=== PATIENT | female | born 1965 ===

== ENCOUNTER 2016-06-04 10:05 | Day surgery (SDC) | payer MEDICARE, MEDICAID ==
[2016-05-30 10:24] VITALS: BMI 32.5
[2016-06-04] MEDS ORDERED: Absorbable Gelatin Sponge Size 100 ONE (10:30)
[2016-06-04] MEDS ORDERED: Lidocaine 1%/Epinephrine 1:100000 30 ml vial ONE (10:30)
[2016-06-04] MEDS ORDERED: Remifentanil 2 MG PDS IV ONE (11:20)
[2016-06-04] MEDS ORDERED: Propofol 10 mg/ml Inj (20 ML) ONE ×2 (11:22→13:29)
[2016-06-04] MEDS ORDERED: Midazolam 2 MG/2 ML VIAL ONE (11:35)
[2016-06-04] MEDS ORDERED: Succinylcholine 200 mg/10 ml Inj IV ONE (11:35)
[2016-06-04] MEDS ORDERED: Rocuronium 10 mg/ml (5 ml) ONE (11:35)
[2016-06-04] MEDS ORDERED: Liquid Adhesive TOP ONE (13:52)
[2016-06-04] MEDS ORDERED: Bacitracin Ointment 30 GM TUBE ONE (13:53)
[2016-06-04] MEDS ORDERED: Morphine 2 mg/ml ISec IVP PRN ×2 (14:08→14:14)
[2016-06-04] MEDS ORDERED: HYDROmorphone 0.5 mg/0.5 ml ISec IVP PRN (14:08)
[2016-06-04] MEDS ORDERED: HYDROmorphone 0.5 mg/0.5 ml ISec ONE ×4 (14:13→14:39)
[2016-06-04] MEDS ORDERED: HYDROmorphone 2 mg/ml ISec IVP PRN (14:28)
[2016-06-04] MEDS ORDERED: Dextrose 5%/0.45% NS 1,000 ML IV SCH (14:30)
[2016-06-04] MEDS ORDERED: HYDROmorphone 2 mg/ml ISec ONE (15:41)
[2016-06-04] MEDS: Methocarbamol 500 MG Tab PO SCH (18:29)
--- NOTE | 2016-06-04 20:32 | OP ---
PROCEDURE DATE: 06/04/2016 PREOPERATIVE DIAGNOSES: Herniated cervical disks, myeloradiculopathy. POSTOPERATIVE DIAGNOSES: Herniated cervical disks, myeloradiculopathy. PROCEDURE: Anterior cervical diskectomy, fixation of C3-C4 C4-5. SURGEON: Geoff Macdonald MD COSURGEON: Niraj Hare MD ANESTHESIA: General endotracheal. ESTIMATED BLOOD LOSS: Less than 100 mL. COMPLICATIONS: None. JUSTIFICATION: The patient has been experiencing neck pain with radiating pain and dysesthesias down her arms as well as balance and coordination problems. Workup with MRI documented significant disk herniations with fairly severe cord compression at C3-C4 and C4-C5. There was also bilateral severe foraminal stenosis. The patient was offered the possibility of treatment via anterior diskectomy, de compression, fixation and fusion. The nature of this procedure, the rationale behind it, alternative s, potential risks, complications, realistic chance of success, recovery time discussed with her at [facility]. All her questions were answered. She fully understood all the above and elected to proceed a s offered. PROCEDURE: The patient was taken to the operating room. She was hooked up to [facility], intubated and anesthetized. She was carefully placed on the OR table in supine position. A small roll placed between her scapula. Head placed on a donut in neutral position. Shoulders gentl y taped down. Incision lateralize with lateral fluoroscopy directly overlying the C4 vertebral body and natural skin fold. After scrubbing the anterior throat with acetone and prepping and draping in the usual sterile manner, the incision was made approximately 4-5 cm in length in the wrist crease ju st to left of midline. The platysma was exposed, opened in the direction of its fibers. Sharp and b shamir dissection then carried forth in the plane between the sternocleidomastoid bilaterally, the trac hea and the esophagus medially to expose the anterior spine. This was cleared with Kitner elevators. [place] were placed in the exposed disk spaces, which confirmed fluoroscopically to be the correct level. At this point, the longus colli muscles were stripped laterally bilaterally. The self-retaining Casp ar type retracting system was then placed. The anesthesiologist was asked to deflate the ET cuff to prevent pressure on the recurrent laryngeal nerve and the pharynx. Each disk was then incised and gr ossly emptied of disk material with the use of pituitary rongeurs and various sized and shaped curett es. This was done with the assistance of an intravertebral retractor. At this point, the microscope was brought in. First, at the C3-C4 level with a retractor on one side, again under microscopic vision, we were able to tease a 1 mm Kerrison behind the posterior longitudinal ligament and then remove all soft tissue o ff the anterior dura which included the ligament, residual annulus and disk material as well as some of the end-plate above and below, completely decompressing the anterior dura side to side. Foraminot omies were performed laterally bilaterally with a 2 mm Kerrison. A blunt nerve hook was used to insp ect each foramen to ensure complete decompression. Hemostasis was then achieved with thrombinated Ge lfoam. The depth of the disk space was measured. Procedure was carried down to the 4-5 level, again with intravertebral retractor in place. Again, we teased a 1 mm Kerrison behind the posterior longitudinal ligament. Again, using a 1 and 2 mm Kerris on, removed all tissue off the anterior dura side to side, the end-plate above and below, foraminotom ies were performed laterally bilaterally. A blunt nerve hook used to document complete decompression of the exiting nerve roots. Hemostasis was achieved with thrombinated powdered Gelfoam. Of note, a t this level, for several seconds, while working predominantly on the left side, there was some incre ased EMG activity; however, somatosensory evoked potentials remained stable, motor evoked potentials were checked and also remained stable and this quieted down after a couple of minutes. At this point, the microscope was withdrawn, the retractors were withdrawn. We turned our attention to the fusion. A small hole was made in the anterior cortex of the C4 vertebrae. An 18-gauge needle was used to aspirate approximately 3 or 4 mL of marrow. This was then impregnated on some collagen hydroxyapatite sponges for the fusion. We then trialed several sizes for interbody fusion cages and chose a 5 mm cage at the cephalad level and a 4 mm cage at the lower level. A rasp instrument was us ed to decorticate above and below. We also used a high speed drill to thin down some of the osteophy tic ridging anteriorly. We then placed the appropriate sized carbon fiber fusion cage filled with ma rrow impregnated sponges. Again, a 5 mm at C3-C4 and a 4 mm at C4-C5. Visual inspection and lateral x-ray confirmed excellent position of both these implants. We then placed the appropriate sized Uniplate overlying the spine. 14 mm screws were placed sequentia lly through the plate into C4, C3 and C5. Final x-ray confirmed superb positioning of the entire con struct, the overlying plate, the 3 intravertebral screws and the 2 interbody grafts. The locking mec hanisms then tightened. Retractors withdrawn. Wound copiously irrigated with antibiotic solution. Some small bleeding point s primarily along the longus colli muscles were coagulated with bipolar cautery. The wound was obser elvin for several minutes to ensure that hemostasis was complete, which it was. We further aligned the prevertebral space with thrombinated powdered Gelfoam for further hemostatic activity. At this point, the platysma was reapproximated using Vicryl, the subQ closed using interrupted invert ed 3-0 Vicryl stitch, the skin closed with running 4-0 Monocryl stitch, benzoin and Steri-Strips, a d ressing and a soft collar were applied. The patient was aroused from anesthesia without difficulty and extubated, moving all 4 extremities wi th excellent strength on her way to the recovery room. All counts were correct. Again, somatosensor y and motor evoked potentials remained stable over the course of this procedure. No complications. Geoff Macdonald MD cc: [id number] TT: 06/04/2016 20:31:36 jono
[2016-06-05] MEDS ORDERED: HYDROmorphone 2 mg/ml ISec IVP PRN (08:31)
[2016-06-05 09:02] LABS: ADD MANUAL DIFF? NO
[2016-06-05 09:08] LABS: EOS % 0.1 % (1.5-5.0); GRAN # 14.43 (1.4-6.5); GRAN % 92.5 % (50.0-68.0); HEMATOCRIT 40.1 % (36.0-48.0); LYMPH # 0.6 (1.2-3.4); LYMPH % 3.5 % (22.0-35.0); MEAN CORPUSCULAR HEMOGLOBIN 27.5 pg (25.0-35.0); MEAN CORPUSCULAR HGB CONC 33.2 g/dl (31.0-37.0); MEAN PLATELET VOLUME 9.2 fl (7.0-11.0); MONO # 0.6 (0.1-0.6); MONO % 3.9 % (1.0-6.0); PLATELET COUNT 294 10^3/uL (120.0-450.0); RED CELL DISTRIBUTION WIDTH 16.8 % (11.5-14.5); WHITE BLOOD COUNT 15.6 10^3/ul (4.5-11.0)
[2016-06-05 09:16] LABS: ALB/GLOB RATIO 1.3 (1.1-1.8); ALKALINE PHOSPHATASE 74 U/L (38-133); ALT/SGPT 31 U/L (7-56); AST/SGOT 37 U/L (15-39); BILIRUBIN,TOTAL 0.5 mg/dL (0.2-1.3); BLOOD UREA NITROGEN 10 mg/dL (7-21); CALCIUM 8.7 mg/dL (8.4-10.5); CARBON DIOXIDE 31 mmol/L (21-33); CHLORIDE 95 mmol/L (95-110); GFR AFRICAN-AMERICAN > 60; GLUCOSE,RANDOM 99 mg/dL (70-110); POTASSIUM 3.5 mmol/L (3.6-5.0); SODIUM 136 mmol/L (132-148)
[2016-06-05] MEDS ORDERED: Potassium Chloride 20 mEq ER Tab PO ONE (09:57)
[2016-06-05] MEDS ORDERED: Levothyroxine 112 MCG TAB PO SCH (10:00)
[2016-06-05] MEDS ORDERED: Naloxone 0.4 mg/ml Inj (Adult) IVP ONE (10:13)
[2016-06-05] MEDS ORDERED: HYDROmorphone 0.5 mg/0.5 ml ISec IVP PRN (10:14)
--- NOTE | 2016-06-05 10:43 | CP.PCM.PN ---
Subjective - Date & Time of Evaluation Date of Evaluation: 06/05/16 Time of Evaluation: 10:10 - Subjective Subjective: I was called by the RN to evaluate patient for lethargy after receiving Dilaudid 2mg IV push @ 8:42am. Patient seen and examined lying on bed @ 578-2, lethargy but easily arousable and response for question with slurred speech. Denies cp, sob, palpitation, dizziness. Vs 113/68 HR 101 Resp 14 SPO2 68% @ RA and 91% with 2LNC/O2. Objective - Vital Signs/Intake and Output Vital Signs (last 24 hours): Temp Pulse Resp BP Pulse Ox 98.0 F 97 H 20 124/78 95 06/05/16 09:18 06/05/16 09:18 06/05/16 09:18 06/05/16 09:18 06/05/16 09:18 Intake and Output: 06/05/16 06/05/16 06:59 18:59 Intake Total 660 Balance 660 - Medications Medications: Current Medications Docusate Sodium (Colace) 100 mg PO BID [facility] Hydrochlorothiazide (Microzide) 25 mg PO DAILY [facility] Hydromorphone HCl (Dilaudid) 0.5 mg IVP Q4H PRN PRN Reason: Pain, moderate (4-7) Dextrose/Sodium Chloride (Dextrose 5%/0.45% Ns 1000 Ml) 1,000 mls @ 90 mls/hr IV .Q11H7M [facility] Last Admin: 06/04/16 16:44 Dose: 90 mls/hr Levothyroxine Sodium (Synthroid) 224 mcg PO QAM [facility] Methocarbamol (Robaxin) 500 mg PO BID [facility] Last Admin: 06/04/16 18:29 Dose: 500 mg Nortriptyline HCl (Pamelor) 25 mg PO [facility] Last Admin: 06/04/16 21:07 Dose: 25 mg Ondansetron HCl (Zofran Inj) 4 mg IVP Q8H PRN PRN Reason: Nausea/Vomiting Last Admin: 06/05/16 08:42 Dose: 4 mg Tramadol HCl (Ultram) 100 mg PO Q6 PRN PRN Reason: Pain, severe (8-10) Trazodone HCl (Desyrel) 50 mg PO [facility] Last Admin: 06/04/16 21:07 Dose: 50 mg - Labs Labs: 06/05/16 08:50 06/05/16 08:50 - Constitutional Appears: Other (lethargic but easly arousable) - Head Exam Head Exam: ATRAUMATIC, NORMOCEPHALIC - Eye Exam Eye Exam: Normal appearance, PERRL - ENT Exam ENT Exam: Normal Exam - Neck Exam Neck Exam: Tenderness (with neck collar) - Respiratory Exam Respiratory Exam: Clear to Ausculation Bilateral, NORMAL BREATHING PATTERN - Cardiovascular Exam Cardiovascular Exam: REGULAR RHYTHM, +S1, +S2 - GI/Abdominal Exam GI & Abdominal Exam: Soft - Extremities Exam Extremities Exam: Full ROM, Normal Capillary Refill - Neurological Exam Neurological Exam: Alert, Awake, Oriented x3 - Psychiatric Exam Psychiatric exam: Normal Affect - Skin Skin Exam: Dry, Intact (s/p diskectomy with dressing on the postioror neck with collar), Normal Color Assessment and Plan - Assessment and Plan (Free Text) Assessment: A 50-year-old female with PMSHX HTN, Hypothyroidism, kidney stone s/p cystoscopy with stent, Asthma, Aortic Aneurysm, Spinal Stenosis, Fibromylagia, DJD, Cervical disk displacement s/p Diskectomy C3-4-5. Lethargy hypoxemia s/p diskectomy Leukocytosis Plan: Narcan 0.4mg IV x 1. Good response patient awake respond appropriately Will cut down Dilaudid to 0.5mg IV q4hrs PRN U/A, [facility] [employer] REPORTER Chest x-ray Continue fluid SCD for DVT prophylaxis Will continue f/u as needed
[2016-06-05] MEDS: Levothyroxine 112 MCG TAB PO SCH ×2 (10:49→10:56)
[2016-06-05] MEDS: Methocarbamol 500 MG Tab PO SCH (10:49)
[2016-06-05 10:55] VITALS: BP 123/93; PULSE 95; RESP 18; TEMP 98; O2SAT 95
--- NOTE | 2016-06-05 12:22 | CP.PCM.PN ---
Subjective - Date & Time of Evaluation Date of Evaluation: 06/05/16 Time of Evaluation: 12:14 - Subjective Subjective: SPINE - POD #1 Pt resting in bed. Seems a little sleepy but had eventful night. Able to swallow large K+ pills. Amb to bathroom. Voiding. VSS. Afebrile. Soft collar in place. Moving all extremities. Neuro grossly intact. Dressing intact. Plan: Discharge to home today. Call office for follow-up with Dr. Macdonald. Objective - Vital Signs/Intake and Output Vital Signs (last 24 hours): Temp Pulse Resp BP Pulse Ox 98.0 F 95 H 18 123/93 H 95 06/05/16 10:45 06/05/16 10:45 06/05/16 10:45 06/05/16 10:45 06/05/16 10:45 Intake and Output: 06/05/16 06/05/16 06:59 18:59 Intake Total 660 Balance 660 - Medications Medications: Current Medications Docusate Sodium (Colace) 100 mg PO BID [facility] Last Admin: 06/05/16 10:48 Dose: 100 mg Hydrochlorothiazide (Microzide) 25 mg PO DAILY [facility] Last Admin: 06/05/16 10:49 Dose: 25 mg Hydromorphone HCl (Dilaudid) 0.5 mg IVP Q4H PRN PRN Reason: Pain, moderate (4-7) Dextrose/Sodium Chloride (Dextrose 5%/0.45% Ns 1000 Ml) 1,000 mls @ 90 mls/hr IV .Q11H7M [facility] Last Admin: 06/04/16 16:44 Dose: 90 mls/hr Levothyroxine Sodium (Synthroid) 224 mcg PO QAM [facility] Last Admin: 06/05/16 10:56 Dose: Not Given Methocarbamol (Robaxin) 500 mg PO BID [facility] Last Admin: 06/05/16 10:49 Dose: 500 mg Nortriptyline HCl (Pamelor) 25 mg PO HS [facility] Last Admin: 06/04/16 21:07 Dose: 25 mg Ondansetron HCl (Zofran Inj) 4 mg IVP Q8H PRN PRN Reason: Nausea/Vomiting Last Admin: 06/05/16 08:42 Dose: 4 mg Tramadol HCl (Ultram) 100 mg PO Q6 PRN PRN Reason: Pain, severe (8-10) Trazodone HCl (Desyrel) 50 mg PO HS [facility] Last Admin: 06/04/16 21:07 Dose: 50 mg - Labs Labs: 06/05/16 08:50 06/05/16 08:50
--- NOTE | 2016-06-05 12:28 | RAD ---
HISTORY: chills s/p disckectomy COMPARISON: No prior. FINDINGS: LUNGS: There is an infiltrate at the right lung base adjacent to the heart. PLEURA: No significant pleural effusion identified, no pneumothorax apparent. CARDIOVASCULAR: Normal. OSSEOUS STRUCTURES: No significant abnormalities. VISUALIZED UPPER ABDOMEN: Normal. OTHER FINDINGS: None. IMPRESSION: Right lower lobe pneumonia
--- NOTE | 2016-06-05 12:50 | RAD ---
PROCEDURE: Fluoroscopy up to 1 hour HISTORY: DISCECTOMY FUSION L-3,4 - L-4,5 COMPARISON: TECHNIQUE: Fluoroscopy was provided in the operating room. 33 seconds of fluoroscopy time were utilized. 7 images were submitted FINDINGS: The study shows needle marker placement and eventual placement of a plate and screws at C3, C4 and C5 IMPRESSION: As above
[2016-06-05] MEDS ORDERED: cefTRIAXone 1 gm 100 ML IVPB SCH (13:00)
--- NOTE | 2016-06-06 10:38 | OP ---
PROCEDURE DATE: 06/04/2016 PREOPERATIVE DIAGNOSIS: Cervical cord compression secondary to herniated disk, C3-C4, C4-C5. POSTOPERATIVE DIAGNOSIS: Cervical cord compression secondary to herniated disk, C3-C4, C4-C5. OPERATION: 1. Anterior cervical diskectomy, C3-C4, C4-C5. 2. Intracervical fusion C3-C4, C4-C5. 3. Use of intravertebral devices. 4. Use of spinal instrumentation. 5. Use of autograft by means of bone marrow aspiration. SURGEONS: Niraj Hare MD and Geoff Macdonald MD. ANESTHESIA: General endotracheal tube intubation. PROCEDURE: The patient was brought to the operating room and placed on the operating table in the schwartz pine position. General anesthesia was achieved, and the patient was intubated without any excessive extension of her neck. Intravenous antibiotics were administered, and spinal cord monitoring leads w ere placed throughout the patient's body. Realtime monitoring was done by cathodic protection technician in the room. R emote monitoring was done by a physician as well. Sequential compression boots are placed to each of the patient's legs. A small roll was placed underneath the patient's scapula to obtain some gentle extension, and the patient's arms were padded and secured at her side. Her neck was sterilely preppe d and draped. The level of the incision was noted under fluoroscopy and infiltrated with lidocaine w ith epinephrine. An incision was made sharply from the midline to the left along Vahe's lines to t clive down to subcutaneous tissues using sharp and blunt dissection. Hemostasis achieved using electro cautery. The platysma was divided vertically and mobilized in all directions, and a plane bluntly de veloped down to intracervical vertebral body. The carotid was identified and gently retracted latera lly, and the midline structures taken medially. The prevertebral fascia was moved using peanut spong e and Metzenbaum scissors. Jackson were placed and were felt to be the 4-5 and 3-4 disks, and this w as confirmed under fluoroscopy. As the needles were removed, the annuli were marked. The longus col li muscles cauterized and stripped back with a small dawn elevator. Self-retaining trimline retractor s were placed in the wound, and we had excellent visualization of the operative field. At that time, the endotracheal cuff is deflated and reinflated minimally to help avoid any compression injuries to the surrounding structures. Another confirmatory fluoroscopic view was taken with needles in the di sks, and again, our levels were verified. The annuli were then sharply incised and disk material rem bertin with small straight and curved curettes and a pituitary rongeur at each level. Small lamina spr eaders were used sequentially from side to side at each level until we were at the posterior margin o f each disk, at which time the operating microscope was brought onto the field, and the rest of the d ecompression done under microscopic visualization. At the 3-4 level, remaining disk was removed with 1-2 mm Kerrison rongeurs. The posterior longitudin al ligament was removed as well until the ventral surface of the cord was completely decompressed. F oraminotomies were carried out until gentle probing with a blunt tip nerve hook revealed no residual pressure. One could see indentation on the cord secondary to this large central herniated disk. The disk space was copiously irrigated with antibiotic solution, and thrombinated Gelfoam powder used fo r hemostasis. We then moved down to the 4-5 level, where in similar fashion with the disk space open with a small l [place], any remaining disk and annulus tissue was removed along with the posterior longitudin al ligament using the 1-2 mm Kerrison rongeurs. Again, the ventral surface of the dura was completel y decompressed, and foraminotomies carried out until we could easily pass a small blunt tip nerve aj k out each one. We could easily pass the nerve hook beneath the vertebral bodies above and below as well to verify that there is no residual pressure. Similar to the level above, one could see the ind entation on the ventral surface of the cord where the herniated disk had been. Again, the disk space was irrigated with antibiotic solution, and hemostasis achieved with thrombinated Gelfoam powder. We then turned our attention to the fusion part of the procedure. A pinhole was made in the C4 body, and bone marrow was aspirated and used to soak pieces of the Conform cube. Bone wax was used for he mostasis at the site. Trials were done. A size 5 Bengal cage was found to be the best fit for the 3 -4 level, and a size 4 was found to be the best fit for the 4-5 level. The appropriate rasps were us ed at each level while the marrow-soaked pieces of the Conform cube were packed into the canals of ea ch cage and coated with Optium gel. The cage was then tamped into place and countersunk. Visually, they appeared to be in good position. A 32 mm Acromed Uniplate was then affixed to the vertebral bod ies using 14 mm self-drilling screws. Final fluoroscopic view showed excellent position of the hardw are and the intervertebral devices. The screws were then locked into place, and the wound copiously irrigated with antibiotic solution. The wound was then closed in layers with interrupted sutures of 3-0 Vicryl for the platysma and subcu taneous tissue, and a running subcuticular suture of 4-0 Monocryl for the skin. Steri-Strips and a s terile dressing were applied along with a soft cervical collar. The patient was then awakened and extubated. She was transferred to her stretcher and taken to the r ecovery room in stable condition having tolerated the procedure well. There was minimal blood loss, and she received a liter of crystalloid during the operation. She was actively moving all extremitie s at the time of her transfer, and no permanent electrophysiologic abnormalities were noted at the co mpletion of the case. Niraj Hare MD cc: [id number] TT: 06/06/2016 10:37:41 jn
== END 2016-06-05 13:23 | disposition home or self-care (01) ==
LOC: SDS 10:05 → 5RSO 16:05 → SDS 06-05 13:23
PROVIDERS: ATTEND Neurological Surgery
DX: M50.01 Cervical disc disorder with myelopathy, high cervical region (principal); M50.021 Cervical disc disorder at C4-C5 level with myelopathy; M50.11 Cervical disc disorder with radiculopathy, high cervical region; M50.121 Cervical disc disorder at C4-C5 level with radiculopathy; I10 Essential (primary) hypertension; M19.90 Unspecified osteoarthritis, unspecified site; I71.9 Aortic aneurysm of unspecified site, without rupture; N20.0 Calculus of kidney; J45.909 Unspecified asthma, uncomplicated; E03.9 Hypothyroidism, unspecified
CPT/HCPCS: 22551; 22552; 22853 ×2; 36415 ×2; 38220; 71010; 76000; 80053; 85025; 86850; 86870; 86900; 88304; C1713 ×4; J0330; J0690; J1170 ×5; J2250; J2310; J2405; J2704; J3010; J7042; J7120

== ENCOUNTER 2017-01-13 03:42 | Inpatient (IN) | payer MEDICARE, OTHER ==
[2017-01-13 03:43] VITALS: BMI 32.5
[2017-01-13] MEDS ORDERED: Sodium Chloride 0.9% 1,000 ML IV STA ×2 (04:07→05:36)
--- NOTE | 2017-01-13 04:09 | ED PDOC ---
Arrival/HPI - General Time Seen by Provider: 01/13/17 04:00 Historian: Patient - History of Present Illness Narrative History of Present Illness (Text): 01/13/17 04:06 Vidhya Bradford is a 51 year old female, whose past medical history includes kidney stones, asthma, fibromyalgia, hyperlipidemia, hypothyroidism, and degenerative joint disease, who presents to the emergency department complaining of right-sided abdominal pain and burning while urinating for a couple of days. Patient denies any fever, chills, chest pain, shortness of breath, nausea, vomiting, diarrhea, neck pain, headache, dizziness, or any other complaints. Symptom Onset: Gradual Symptom Course: Unchanged Severity Level: Mild Activities at Onset: Light Context: Home Past Medical History - Provider Review Nursing Documentation Reviewed: Yes - Infectious Disease Hx of Infectious Diseases: None - Tetanus Immunization Tetanus Immunization: Up to Date - Cardiac Hx Pacemaker: No - Pulmonary Hx Respiratory Disorders: Yes Hx Asthma: Yes Hx Bronchitis: Yes Other/Comment: acute sinusitis - Neurological Hx Paralysis: No - HEENT Hx HEENT Disorder: Yes Other/Comment: DRY EYES - Renal Hx Renal Disorder: Yes Hx Kidney Stones: Yes - Endocrine/Metabolic Hx Endocrine Disorders: Yes Hx Diabetes Mellitus Type 1: No Hx Hypothyroidism: Yes - Hematological/Oncological Hx Blood Transfusions: No Hx Blood Transfusion Reaction: No - Integumentary Hx Dermatological Disorder: No - Musculoskeletal/Rheumatological Hx Musculoskeletal Disorders: Yes - Gastrointestinal Hx Gastrointestinal Disorders: Yes (ULCER,GERD,CONSTIPATION) - Genitourinary/Gynecological Hx Genitourinary Disorders: No Hx Reproductive Disorders: No - Psychiatric Hx Emotional Abuse: No Hx Physical Abuse: No Hx Substance Use: No - Past Surgical History Past Surgical History: No Previous - Surgical History Hx Hysterectomy: Yes (partial) Other/Comment: Stents for kidney stones 08/16/2015 - Anesthesia Hx Anesthesia Reactions: No Hx Malignant Hyperthermia: No - Suicidal Assessment Feels Threatened In Home Enviroment: No Family/Social History - Physician Review Nursing Documentation Reviewed: Yes Family/Social History: No Known Family HX Smoking Status: Former Smoker Hx Alcohol Use: Yes (RARE) Hx Substance Use: No Hx Substance Use Treatment: No Allergies/Home Meds Allergies/Adverse Reactions: Allergies No Known Allergies Allergy (Verified 01/13/17 04:07) Home Medications: Home Meds Medication Instructions Recorded Confirmed Hydrochlorothiazide [Microzide] 25 mg PO DAILY 01/07/16 01/13/17 Levothyroxine Sodium [Synthroid] 225 mcg PO QAM 04/11/16 01/13/17 Albuterol HFA [Ventolin HFA 90 2 puff IH Q6 PRN 04/24/16 01/13/17 mcg/actuation (8 g)] Nortriptyline HCl [Pamelor] 25 mg PO HS 04/24/16 01/13/17 Atorvastatin [Lipitor] 40 mg PO QPM 05/30/16 01/13/17 Review of Systems - Review of Systems Constitutional: absent: Fevers, Night Sweats Eyes: absent: Vision Changes ENT: absent: Hearing Changes Respiratory: absent: SOB, Cough Gastrointestinal: Abdominal Pain (Right-sided abdominal pain). absent: Nausea, Vomiting, Appetite Changes Genitourinary Female: Dysuria (Burning while urination) Musculoskeletal: absent: Arthralgias, Back Pain Skin: absent: Rash, Pruritis Neurological: absent: Headache, Dizziness Endocrine: absent: Diaphoresis Hemo/Lymphatic: absent: Adenopathy Physical Exam Vital Signs Reviewed: Yes Vital Signs Temp Pulse Resp BP Pulse Ox 01/13/17 06:00 80 16 118/74 99 01/13/17 04:00 98.1 F 70 17 124/88 97 - Systems Exam Head: Present: Atraumatic, Normocephalic Pupils: Present: PERRL Extroacular Muscles: Present: EOMI Conjunctiva: Present: Normal Mouth: Present: Moist Mucous Membranes Neck: Present: Normal Range of Motion Respiratory/Chest: Present: Clear to Auscultation, Good Air Exchange. No: Respiratory Distress, Accessory Muscle Use Cardiovascular: Present: Regular Rate and Rhythm, Normal S1, S2. No: Murmurs Abdomen: Present: Tenderness (mild right mid- lower abdominal tenderness) Back: Present: Normal Inspection. No: CVA Tenderness Upper Extremity: Present: Normal Inspection. No: Cyanosis, Edema Lower Extremity: Present: Normal Inspection. No: Edema Neurological: Present: GCS=15, CN II-XII Intact, Speech Normal Skin: Present: Warm, Dry, Normal Color. No: Rashes Psychiatric: Present: Alert, Oriented x 3, Normal Insight, Normal Concentration Medical Decision Making ED Course and Treatment: 01/13/17 04:10 Impression: 51 year old complaining of right-sided abdominal and burning while urinating for a couple of weeks. Differential Diagnosis included but are not limited to: Plan: -- Abdomen and Pelvis CT w/o contrast -- Urinalysis -- Labs -- Toradol and IV fluids -- Reassess and disposition Prior Visits: Notes and results from previous visits were reviewed. Patient last seen in the ED on 04/24/16 for evaluation of asthma exacerbation for on day. Patient was admitted to hospitalist care for further evaluation. Progress Notes: 01/13/17 05:26 CT Abdomen and Pelvis Without Intravenous Contrast: Creator : FNANY MAYNARD FINDINGS: Lower thorax: No acute findings. ABDOMEN: Liver: Enlarged fatty liver. Gallbladder and bile ducts: Unremarkable. No ductal dilation. Pancreas: Unremarkable. No ductal dilation. Spleen: Unremarkable. No splenomegaly. Adrenals: Unremarkable. No mass. Kidneys and ureters: Moderate to severe right hydroureteronephrosis with ureteral sludge like calcification seen on image 99 series 2 and 5 - 6 mm right distal ureteral stones seen on image 142 through 147 series 2 representing multifocal acute obstructive uropathy. There are at least 2 obstructing stones. Nonobstructive bilateral renal stones. Stomach and bowel: There is stool like appearance to the distal small bowel. This may represent slow transit. Moderate amount of stool in the colon. Nonspecific colonic wall thickening. Correlation with patient's clinical history of constipation versus stool related colitis versus under distention is recommended. Appendix: No findings to suggest acute appendicitis. PELVIS: Bladder: Partially decompressed bladder with bladder wall thickening. Correlation with urinalysis is recommended only if clinical cystitis is suspected. Reproductive: Hysterectomy. ABDOMEN and PELVIS: Intraperitoneal space: Unremarkable. No free air. No significant fluid collection. Bones/joints: No acute fracture. No dislocation. Soft tissues: There is umbilical body piercing ring. There are nodular densities within subcutaneous q.p.m. soft tissues representing gluteus augmentation. Nonspecific posterior back edema. Nodular densities within bilateral perineal Vasculature: The aorta demonstrates calcified plaque and is mildly ectatic but normal in caliber. No abdominal aortic aneurysm. Lymph nodes: Unremarkable. No enlarged lymph nodes. IMPRESSION: 1. Moderate to severe right hydroureteronephrosis with ureteral sludge like calcification seen on image 99 series 2 and 5 - 6 mm right distal ureteral stones seen on image 142 through 147 series 2 representing multifocal acute obstructive uropathy. There are at least 2 obstructing stones. Correlation with internal medicine evaluation and further workup or followup as recommended by patient's clinical data. 01/13/17 05:[address] Raman, who accepts patient into her service. Dr. Gay on consult. - Lab Interpretations Lab Results: 01/13/17 04:00 01/13/17 04:00 Lab Results 01/13/17 04:00: WBC 14.3 H, RBC 5.12, Hgb 15.5, Hct 45.0, MCV 87.9, MCH 30.3, MCHC 34.4, RDW 13.1, Plt Count 269, MPV 9.4 01/13/17 04:00: Sodium 138, Potassium 3.0 L, Chloride 99, Carbon Dioxide 28, Anion Gap 14, BUN 23 H, Creatinine 0.6 L, Est GFR ( Amer) > 60, Est GFR ( Non-Af Amer) > 60, Random Glucose 103, Calcium 9.4, Total Bilirubin 0.8, AST 39 H, ALT 60 H, Alkaline Phosphatase 122, Total Protein 7.6, Albumin 4.2, Globulin 3.4, Albumin/Globulin Ratio 1.2, Lipase 139 I have reviewed the lab results: Yes - RAD Interpretation Radiology Orders: 01/13/17 04:07 ABD & PELVIS W/O PO OR IV CONT [CT] Stat - Medication Orders Current Medication Orders: Albuterol Sulfate (Albuterol 0.083% Inhal Radha (2.5 Mg/3 Ml) Ud) 2.5 mg IH Q4 PRN PRN Reason: Wheezing Last Admin: 01/13/17 15:40 Dose: 2.5 mg Atorvastatin Calcium (Lipitor) 40 mg PO QPM ASH Famotidine (Pepcid) 40 mg PO HS ASH Hydrochlorothiazide (Microzide) 25 mg PO DAILY ASH Last Admin: 01/13/17 09:45 Dose: 25 mg Hydromorphone HCl (Dilaudid) 0.5 mg IVP Q4H PRN PRN Reason: Pain, Mild (1-3) Last Admin: 01/13/17 14:13 Dose: 0.5 mg MAR Pain Assessment Document 01/13/17 14:13 THOR (Rec: 01/13/17 14:14 THOR [facility] [place]-[id number]) Pain Reassessment Is this a pain reassessment? No Presence of Pain Presence of Pain Yes Pain Scale Used Pain Scale Used Numeric Location Left, Right or Bilateral Right Upper or Lower Lower Pain Location Body Site Abdomen Description Description Constant Pain Behavior Moaning IVP Administration Document 01/13/17 14:13 THOR (Rec: 01/13/17 14:14 THOR [facility] [place]-[id number]) Charges for Administration # of IVP Administrations 1 Ceftriaxone Sodium (Rocephin 1 Gram Ivpb) 1 gm in 100 mls @ 100 mls/hr IVPB DAILY ASH PRN Reason: Protocol Last Admin: 01/13/17 14:18 Dose: Levothyroxine Sodium 125 mcg/ (Levothyroxine Sodium 100 mcg) 225 mcg PO DAILY ASH Last Admin: 01/13/17 10:45 Dose: 225 mcg Fluticasone/Vilanterol [Breo Ellipta 200-25 Mcg Inh (Home) 1 each IH DAILY ASH Nortriptyline HCl (Pamelor) 25 mg PO HS ASH Discontinued Medications Hydromorphone HCl (Dilaudid) 1 mg IVP STAT STA Stop: 01/13/17 05:28 Last Admin: 01/13/17 05:42 Dose: 1 mg MAR Pain Assessment Document 01/13/17 05:42 [place] (Rec: 01/13/17 05:42 [id number] Pain Reassessment Is this a pain reassessment? Yes Sleep Is patient sleeping during reassessment? No Pain Scale Used Pain Scale Used Numeric Description Intensity of Pain at present 10 IVP Administration Document 01/13/17 05:42 [place] (Rec: 01/13/17 05:42 [id number]) Charges for Administration # of IVP Administrations 1 Sodium Chloride (Sodium Chloride 0.9%) 1,000 mls @ 999 mls/hr IV .Q1H1M STA Stop: 01/13/17 05:07 Last Admin: 01/13/17 04:22 Dose: 999 mls/hr eMAR Start Stop Document 01/13/17 04:22 [place] (Rec: 01/13/17 04:22 [id number] Intravenous Solution Start Date 01/13/17 Start Time 04:22 End Date 01/13/17 End time 05:22 Total Infusion Time 60 Sodium Chloride (Sodium Chloride 0.9%) 1,000 mls @ 100 mls/hr IV .Q10H STA Stop: 01/13/17 15:35 Last Admin: 01/13/17 10:44 Dose: 100 mls/hr eMAR Start Stop Document 01/13/17 10:44 THOR (Rec: 01/13/17 10:44 THOR [facility] [place]-[id number]) Intravenous Solution Start Date 01/13/17 Start Time 10:44 Ceftriaxone Sodium (Rocephin 1 Gram Ivpb) 1 gm in 100 mls @ 200 mls/hr IV ONCE STA PRN Reason: Protocol Stop: 01/13/17 06:12 Last Admin: 01/13/17 06:29 Dose: 200 mls/hr eMAR Start Stop Document 01/13/17 06:29 [place] (Rec: 01/13/17 06:29 [id number]) Intravenous Solution Start Date 01/13/17 Start Time 06:29 End Date 01/13/17 End time 07:00 Total Infusion Time 31 Ketorolac Tromethamine (Toradol) 30 mg IVP ONCE ONE Stop: 01/13/17 04:08 Last Admin: 01/13/17 04:23 Dose: 30 mg GANESH Pain Assessment Document 01/13/17 04:23 [place] (Rec: 01/13/17 04:23 [id number] Pain Reassessment Is this a pain reassessment? No Sleep Is patient sleeping during reassessment? No Presence of Pain Presence of Pain Yes Pain Scale Used Pain Scale Used Numeric Description Intensity of Pain at present 10 IVP Administration Document 01/13/17 04:23 [place] (Rec: 01/13/17 04:23 [id number]) Charges for Administration # of IVP Administrations 1 Re-Assess: GANESH Pain Assessment Document 01/13/17 05:23 [place] (Rec: 01/13/17 06:29 [id number]) Pain Reassessment Is this a pain reassessment? Yes Sleep Is patient sleeping during reassessment? No Presence of Pain Presence of Pain Yes Pain Scale Used Pain Scale Used Numeric Description Intensity of Pain at present 10 Potassium Chloride (K-Dur 20 Meq Er Tab) 40 meq PO STAT STA Stop: 01/13/17 05:43 Last Admin: 01/13/17 06:12 Dose: 40 meq - Scribe Statement The provider has reviewed the documentation as recorded by the Rinku Redd Provider Scribe Attestation: All medical record entries made by the Scribe were at my direction and personally dictated by me. I have reviewed the chart and agree that the record accurately reflects my personal performance of the history, physical exam, medical decision making, and the department course for this patient. I have also personally directed, reviewed, and agree with the discharge instructions and disposition. Disposition/Present on Arrival - Present on Arrival Any Indicators Present on Arrival: No History of DVT/PE: No History of Uncontrolled Diabetes: No Urinary Catheter: No History of Decub. Ulcer: No History Surgical Site Infection Following: None - Disposition Have Diagnosis and Disposition been Completed?: Yes Diagnosis: Renal colic on right side, UTI (urinary tract infection) Disposition: HOSPITALIZED Disposition Time: 06:05 Patient Problems: Current Active Problems Problem Status Onset Renal colic on right side Acute UTI (urinary tract infection) Acute Condition: STABLE
[2017-01-13 04:41] LABS: ALB/GLOB RATIO 1.2 (1.1-1.8); ALKALINE PHOSPHATASE 122 U/L (38-126); ALT/SGPT 60 U/L (7-56); AST/SGOT 39 U/L (14-36); BILIRUBIN,TOTAL 0.8 mg/dL (0.2-1.3); BLOOD UREA NITROGEN 23 mg/dL (7-21); CALCIUM 9.4 mg/dL (8.4-10.5); CARBON DIOXIDE 28 mmol/L (21-33); CHLORIDE 99 mmol/L (98-107); GFR AFRICAN-AMERICAN > 60; GLUCOSE,RANDOM 103 mg/dL (70-110); LIPASE 139 U/L (23-300); SODIUM 138 mmol/L (132-148); TOTAL PROTEIN 7.6 g/dL (5.8-8.3)
[2017-01-13 04:46] LABS: MEAN CELL VOLUME 87.9 fl (80.0-105.0); MEAN CORPUSCULAR HEMOGLOBIN 30.3 pg (25.0-35.0); MEAN CORPUSCULAR HGB CONC 34.4 g/dl (31.0-37.0); MEAN PLATELET VOLUME 9.4 fl (7.0-11.0); RED CELL DISTRIBUTION WIDTH 13.1 % (11.5-14.5); WHITE BLOOD COUNT 14.3 10^3/ul (4.5-11.0)
[2017-01-13] MEDS ORDERED: Morphine 5 MG/ML SYRINGE IVP STA (04:51)
--- NOTE | 2017-01-13 05:14 | CT ---
EXAM: CT Abdomen and Pelvis Without Intravenous Contrast CLINICAL HISTORY: 51 years old, female; Pain; Abdominal pain; Generalized TECHNIQUE: Axial computed tomography images of the abdomen and pelvis without intravenous contrast. All CT scans at this facility use one or more dose reduction techniques, viz.: automated exposure control; ma/kV adjustment per patient size (including targeted exams where dose is matched to indication; i.e. head); or iterative reconstruction technique. 691 images are submitted.Limitations: Absence of IV contrast decreases sensitivity for detecting solid organ and vascular abnormality. Coronal and sagittal reformatted images were created and reviewed. COMPARISON: CT - ABD PELVIS W/O PO OR IV CONT 2016-04-05 08:26 FINDINGS: Lower thorax: No acute findings. ABDOMEN: Liver: Enlarged fatty liver. Gallbladder and bile ducts: Unremarkable. No ductal dilation. Pancreas: Unremarkable. No ductal dilation. Spleen: Unremarkable. No splenomegaly. Adrenals: Unremarkable. No mass. Kidneys and ureters: Moderate to severe right hydroureteronephrosis with ureteral sludge like calcification seen on image 99 series 2 and 5 - 6 mm right distal ureteral stones seen on image 142 through 147 series 2 representing multifocal acute obstructive uropathy. There are at least 2 obstructing stones. Nonobstructive bilateral renal stones. Stomach and bowel: There is stool like appearance to the distal small bowel. This may represent slow transit. Moderate amount of stool in the colon. Nonspecific colonic wall thickening. Correlation with patient's clinical history of constipation versus stool related colitis versus under distention is recommended. Appendix: No findings to suggest acute appendicitis. PELVIS: Bladder: Partially decompressed bladder with bladder wall thickening. Correlation with urinalysis is recommended only if clinical cystitis is suspected. Reproductive: Hysterectomy. ABDOMEN and PELVIS: Intraperitoneal space: Unremarkable. No free air. No significant fluid collection. Bones/joints: No acute fracture. No dislocation. Soft tissues: There is umbilical body piercing ring. There are nodular densities within subcutaneous q.p.m. soft tissues representing gluteus augmentation. Nonspecific posterior back edema. Nodular densities within bilateral perineal Vasculature: The aorta demonstrates calcified plaque and is mildly ectatic but normal in caliber. No abdominal aortic aneurysm. Lymph nodes: Unremarkable. No enlarged lymph nodes. IMPRESSION: 1. Moderate to severe right hydroureteronephrosis with ureteral sludge like calcification seen on image 99 series 2 and 5 - 6 mm right distal ureteral stones seen on image 142 through 147 series 2 representing multifocal acute obstructive uropathy. There are at least 2 obstructing stones. Correlation with internal medicine evaluation and further workup or followup as recommended by patient's clinical data.
[2017-01-13] MEDS ORDERED: HYDROmorphone 1 mg/ml ISec IVP STA (05:27)
[2017-01-13] MEDS ORDERED: Potassium Chloride 20 mEq ER Tab PO STA (05:42)
[2017-01-13] MEDS ORDERED: cefTRIAXone 1 gm 1 GM/100 ML BAG IV STA (05:43)
[2017-01-13 05:59] LABS: URINE BILIRUBIN NEGATIVE (NEGATIVE); URINE BLOOD LARGE (NEGATIVE); URINE GLUCOSE (UA) NEGATIVE (NEGATIVE); URINE KETONE NEGATIVE (NEGATIVE); URINE LEUKOCYTE ESTERASE LARGE Leu/uL (NEGATIVE); URINE PROTEIN 100 mg/dL (<30 mg/dL)
[2017-01-13 06:02] LABS: URINE APPEARANCE SL CLOUDY (CLEAR); URINE COLOR DARK YELLOW (YELLOW)
[2017-01-13 06:14] LABS: URINE BACTERIA MOD (NEG); URINE WBC 20 - 25 /hpf (0-6)
--- NOTE | 2017-01-13 08:26 | PCM.URO ---
Urology Progress Note - Subjective Abdominal Pain: Yes - Objective Lab Studies: Reviewed (renal colic // gu plans to be discussed / thanks for the consult) Lab Results Last 24 Hours: Laboratory Results - last 24 hr 01/13/17 05:45 Urine Color Dark yellow Urine Appearance Sl cloudy Urine pH 7.0 Ur Specific [place] 1.015 Urine Protein 100 H Urine Glucose (UA) Negative Urine Ketones Negative Urine Blood Large H Urine Nitrate Positive H Urine Bilirubin Negative Urine Urobilinogen 1.0 H Ur Leukocyte Esterase Large H Urine RBC 2 - 5 Urine WBC 20 - 25 Ur Epithelial Cells 1 - 3 Urine Bacteria Mod Urine HCG, Qual Negative Vital Signs: Vital Signs - 24 hr 01/13/17 06:00 Pulse Rate 80 Respiratory 16 Rate Blood Pressure 118/74 O2 Sat by Pulse 99 Oximetry
[2017-01-13] MEDS ORDERED: Albuterol HFA 90 mcg/actuation (8 g) IH PRN (08:40)
[2017-01-13] MEDS: HYDROmorphone 0.5 mg/0.5 ml ISec IVP PRN ×4 (09:44→22:33)
[2017-01-13] MEDS ORDERED: Levothyroxine 112 MCG TAB PO SCH (10:00)
[2017-01-13] MEDS ORDERED: Levothyroxine 125 MCG TAB ONE (10:13)
[2017-01-13 10:14] LABS: IRON 105 ug/dL (45-180)
[2017-01-13 13:33] LABS: FOLATE 16.9 ng/mL
[2017-01-13] MEDS: cefTRIAXone 1 gm 1 GM/100 ML BAG IVPB SCH (14:18)
[2017-01-13] MEDS: Albuterol 0.083% Inhal Sol (2.5 mg/3 mL) UD IH PRN (15:40)
[2017-01-13] MEDS ORDERED: Influenza Vaccine 60 mcg/0.5 mL SYR (4YR UP) IM ONE (20:02)
[2017-01-13] MEDS ORDERED: Pneumococcal 23-Valent Vaccine IM ONE (20:02)
[2017-01-13] MEDS: Sodium Chloride 0.9% 1,000 ML IV SCH (22:42)
[2017-01-14] MEDS: Albuterol 0.083% Inhal Sol (2.5 mg/3 mL) UD IH PRN ×3 (00:18→09:19)
[2017-01-14] MEDS: HYDROmorphone 0.5 mg/0.5 ml ISec IVP PRN ×4 (02:21→21:10)
--- NOTE | 2017-01-14 03:42 | CON ---
DATE: 01/13/2017 PULMONARY CONSULTATION REFERRING PHYSICIAN: Linda Raman MD REASON FOR CONSULTATION: Chronic obstructive lung disease. Admitted with renal calculus and pain. HISTORY OF PRESENT ILLNESS: This is a 51-year-old female with past medical history known to have a chronic sinusitis, asthma, has a history of renal stone in the past, fibromyalgia, hyperlipidemia, hypothyroidism, degenerative joint disease. Came into emergency room with right-sided abdominal pain. Also had a dysuria. No fever. No chills. No hemoptysis. No hematemesis. Has a mild cough and shortness of breath. PAST MEDICAL HISTORY: Chronic obstructive lung disease, recurrent sinusitis, fibromyalgia, hypothyroid, hypertension, anxiety disorder, may have a sleep apnea syndrome, renal stone. ALLERGIES: NONE KNOWN. MEDICATIONS: She is on albuterol and Atrovent nebulizer q.4 hours p.r.n., Dilaudid 0.5 mg q.4 hours p.r.n., Breo 200/25 one tablet daily, Lipitor 40 mg daily, hydrochlorothiazide 25 mg daily, Pamelor 25 mg at bedtime, Pepcid 40 mg daily, Rocephin 1 g IV daily, IV fluid, normal saline 100 mL per hour, Levothyroxine 225 mcg daily. FAMILY HISTORY: No significant cardiopulmonary disease reported. SOCIAL HISTORY: No smoking or alcohol use. REVIEW OF SYSTEMS: No headache, has some rhinitis, mild cough, no shortness of breath, no chest pain, no nausea, no vomiting. Has a right-sided abdominal pain. No leg pain. No leg swelling. PHYSICAL EXAMINATION: GENERAL: Lying in the bed in no acute distress. VITAL SIGNS: Temperature is 98, heart rate 70, respiratory rate is 20, blood pressure 118/79, pulse ox 95% on room air. HEENT: Moist mucous membranes. Crowded airway. Mallampati score is IV. NECK: Supple. No JVD. LUNGS: Has a few scattered rhonchi and wheezing. HEART: S1 and S2. ABDOMEN: Soft, nontender, and nondistended. Has right flank pain. EXTREMITIES: There is no edema. NEUROLOGIC: Awake, alert, follows simple commands. LABORATORY DATA: Shows hemoglobin of 15.5, hematocrit of 45.0, WBC of 14.3, and platelet count is 269. Electrolytes show sodium 138, potassium 3.0, chloride 99, bicarbonate 28, BUN 23, and creatinine 0.6. Hemoglobin A1c 5.8, calcium 9.4, iron is 105, AST 39, ALT 60, alkaline phosphatase is 122. Albumin 4.2. Cholesterol is 190. Lipase 139, B12 is 460. Folate 16.9. Microbiology, blood cultures been negative. She has CT of the abdomen and pelvis done. It shows [id number] right hydronephrosis with ureter sludge like calcification seen in the 5 to 6 mm right distal ureteral stone seen 142 through 147 series to representing multifocal acute obstructive uropathy. There are at least two obstructive stones. IMPRESSION AND PLAN: Obstructive uropathy, nephrolithiasis, urinary tract infection, chronic obstructive lung disease, fibromyalgia, anxiety disorder, hypothyroid. Agree with the present management. Continue antibiotics, IV fluid, gastric prophylaxis, deep venous thrombosis prophylaxis, sleep apnea precaution, keep head at 45 degrees. If sedated, needs close cardiopulmonary monitoring. Thank you and we will follow with you. Karmen Harrison MD
--- NOTE | 2017-01-14 05:57 | HP ---
CHIEF COMPLAINT: Ms. Vidhya Bradford is a 51-year-old female came in [facility] with abdominal pain. HISTORY OF PRESENT ILLNESS: Ms. Vidhya Bradford is a 51-year-old female with past medical history of kidney stones, asthma, fibromyalgia, hypercholesterolemia, hypothyroidism, degenerative joint disease, came to the emergency department complaining of right-sided abdominal pain and burning while urinating for a couple of days. The patient denies any fevers, chills, chest pain, shortness of breath, nausea or vomiting, diarrhea, neck pain, headache, dizziness, or any other complaints. PAST MEDICAL HISTORY: Asthma, bronchitis, renal disease, kidney stones, hypothyroidism, peptic ulcer disease, history of hysterectomy, and history of kidney stents. FAMILY HISTORY: Father and mother, noncontributory. HABITS: No smoking. No drugs. No ethanol. ALLERGIES: THE PATIENT IS NOT ALLERGIC WTH ANY MEDICATIONS. HOME MEDICATIONS: Hydrochlorothiazide, Synthroid, Ventolin, nortriptyline, and Lipitor. REVIEW OF SYSTEMS: The patient is examined at the bedside, is looking comfortable. No fever. No chills. No night sweats. No vision changes. No hearing changes. No shortness of breath or coughing. Having right-sided abdominal pain. No nausea, vomiting, or diarrhea. No change in the appetite. Sometimes complaining of dysuria while urinating. No arthralgia or back pain and no rash or pruritus. No headache or dizziness. No diaphoresis. No adenopathy. PHYSICAL EXAMINATION: VITAL SIGNS: Temperature 98.1, pulse 70, respiratory 17, blood pressure 124/88, pulse oximetry 97. HEENT: Head is normocephalic and atraumatic. Eyes, PERRLA. Extraocular muscles are intact. Conjunctivae are clear. Nose is patent. Mucous membranes are moist. NECK: Supple. No carotid bruits, JVD, or thyromegaly. CHEST: Bilaterally symmetrical. HEART: S1 and S2 positive. LUNGS: Clear to auscultation. ABDOMEN: Soft. Bowel sounds present. No organomegaly. EXTREMITIES: No edema, no cyanosis. NEUROLOGIC: The patient is awake and alert. Moving all 4 extremities. No focal deficits. LABORATORY DATA: White blood cells 14.3, hemoglobin 15.5, hematocrit 45.0, and platelets 269. Sodium noted , potassium 3.0, BUN 23, creatinine 0.6, and glucose 103. ASSESSMENT AND PLAN: Ms. Vidhya Bradford is a 51-year-old lady with leukocytosis; renal insufficiency; hypokalemia, replaced; nephrolithiasis; hypothyroidism; hydronephrosis; renal colic on right side; urinary tract infection. Urology consult called with Dr. Cagle. CAT scan of the abdomen and pelvis done as reviewed by me. Started on albuterol, hydromorphone, nitro, nortriptyline, normal saline, Synthroid. Education done. Repeat labs. Linda Raman MD MTDD
[2017-01-14] MEDS: Sodium Chloride 0.9% 1,000 ML IV SCH ×3 (06:33→19:01)
[2017-01-14 07:21] LABS: HEMATOCRIT 39.4 % (36.0-48.0); MEAN CORPUSCULAR HEMOGLOBIN 29.9 pg (25.0-35.0); MEAN CORPUSCULAR HGB CONC 33.2 g/dl (31.0-37.0); MEAN PLATELET VOLUME 9.6 fl (7.0-11.0); WHITE BLOOD COUNT 9.1 10^3/ul (4.5-11.0)
[2017-01-14 08:00] LABS: BLOOD UREA NITROGEN 13 mg/dL (7-21); CALCIUM 8.8 mg/dL (8.4-10.5); CARBON DIOXIDE 30 mmol/L (21-33); CHLORIDE 101 mmol/L (98-107); GFR AFRICAN-AMERICAN > 60; GLUCOSE,RANDOM 89 mg/dL (70-110); POTASSIUM 3.1 mmol/L (3.6-5.0); SODIUM 138 mmol/L (132-148)
--- NOTE | 2017-01-14 08:06 | CON ---
UROLOGY CONSULTATION DATE: 01/13/2017 The time is currently 8 a.m. I am actually in the hospital to see the patient and I see the patient's name on the computer. The patient is well known to me. She was admitted to the hospital at about sometime between 3 a.m. and 5 a.m. I saw her name in the computer and I came to visit her at the bedside. She is currently actually eating breakfast. The reason for the consultation is severe renal colic on the right side. This is a very pleasant lady, I know well. She is 51 years old. I previously treated for stones. She states she had no interm problems. Two or three days ago, she started feeling pain and discomfort. She started taking some Motrin, self medicating and was not getting any relief. Previously about a couple of weeks ago, she said she saw a air pollution specialist and thought may be there was a infection, but then over the last couple of days it has been worsening. Since yesterday, she has been taking Motrin, since Friday morning, today is Friday morning. She has been taking Motrin round the clock and it is not giving her relief. So at 3 a.m. she called the ambulance and went to the hospital. They did a CAT scan. They found some stone disease and then admitted the patient. PAST MEDICAL AND SURGICAL HISTORY: As listed on the chart. REVIEW OF SYSTEMS: A very pleasant 51-year-old lady, who I know well. As listed above. No weight loss, chest pain . PHYSICAL EXAMINATION: GENERAL: In no apparent distress. VITAL SIGNS: Within normal limits. See the chart. There are no fevers. She is afebrile. She is currently sitting up in her bed. It is 8 a.m. She is eating some oatmeal for breakfast and other things on the breakfast tray. The remainder of the physical exam otherwise is unremarkable. Rectal exam is deferred. LABORATORY DATA: See chart. CT scan, there is some noted hydronephrosis and at least one or may be two stones that are next to each other. I reviewed the films carefully. See the plan listed above. Remainder of the CAT scan results is otherwise unremarkable. DIAGNOSES: Renal colic, severe pain, enough to cause the patient to be brought to the emergency room by ambulance and enough to be admitted, but currently not experiencing any nausea, vomiting, and is actually is able to eat breakfast. So the diagnoses is urolithiasis and renal colic and a stone with hydronephrosis, all on the right side. PLAN: At this time, we will plan for cystoscopy, retrograde and stent insertion. I will discuss with the patient the timing. I am going to ask her not to eat now perhaps we will do later this afternoon depending on her schedule and depending on how she is feeling. I will discuss with her the possibility of shock wave lithotripsy. We will have to review all this . Thank you for the urology consultation. Laron Cagle MD
[2017-01-14] MEDS ORDERED: Propofol 10 mg/ml Inj (20 ML) ONE (15:10)
[2017-01-14] MEDS ORDERED: cefTRIAXone (Rocephin) 1 gm Inj ONE (15:15)
[2017-01-14] MEDS ORDERED: HYDROmorphone 0.5 mg/0.5 ml ISec IVP PRN (16:08)
[2017-01-14] MEDS ORDERED: Lactated Ringer's 1,000 ML IV SCH (16:15)
[2017-01-14] MEDS ORDERED: Gentamicin 80mg/50ml NS 80 MG/50 ML BAG IVPB ONE (16:39)
[2017-01-14] MEDS ORDERED: HYDROmorphone 0.5 mg/0.5 ml ISec ONE (17:00)
--- NOTE | 2017-01-14 17:59 | RAD ---
PROCEDURE: Retrograde pyelogram HISTORY: Rt stone, placement Rt nephroureteral stent COMPARISON: None TECHNIQUE: Standard protocol for this study/examination. FINDINGS: Confirmation of placement of double-J stent on the right. Total fluoroscopic time (continuous mode) utilized during the procedure: 30.5 seconds. Total exam DLP: (mGy): 2.5 IMPRESSION: Less than 1 hr fluoroscopic time utilized during performance of the procedure.
[2017-01-14] MEDS ORDERED: Potassium Chloride 20 mEq ER Tab PO ONE (18:00)
[2017-01-14] MEDS: cefTRIAXone 1 gm 1 GM/100 ML BAG IVPB SCH (19:01)
[2017-01-14] MEDS: VILANTEROL IH SCH (19:38)
[2017-01-14] MEDS: FLUTICASONE IH SCH (19:38)
--- NOTE | 2017-01-15 03:25 | PN ---
PULMONARY PROGRESS NOTE DATE: 01/14/2017 REFERRING PHYSICIAN: Dr. Raman. SUBJECTIVE: She just came back from OR, status post cystoscopy and extraction of ureteral stone. She feels better. Eating her dinner now. Overnight had some asthma attack requiring frequent nebulizer, mild cough. No nausea, no vomiting, no diarrhea, leg pain or leg swelling. OBJECTIVE: GENERAL: In no acute distress. VITAL SIGNS: Temperature is 98, heart rate 61, respiratory rate 18, blood pressure 136/70, and pulse ox 95% on 3 liters nasal cannula. HEENT: Moist mucous membrane. Crowded airway. Mallampati score is IV. NECK: Supple. No JVD. LUNGS: Have a LABORATORY DATA: Hemoglobin 13.1, hematocrit 39.4, WBC 9.1, platelet is 217. Sodium 138, potassium 3.1, chloride 101, bicarbonate 30, BUN 13, creatinine 0.5, glucose 89, calcium is 8.8, magnesium 1.9, TSH is 0.16. Urine culture has Gram negative zaki. Blood cultures have been negative. IMPRESSION AND PLAN: Obstructive uropathy, had a ureteral stone status post extraction of stone and cystoscopy, chronic obstructive lung disease, fibromyalgia, anxiety disorder, hypothyroid. Pulmonary point of view, she is doing okay. We will follow with you. Karmen Harrison MD
[2017-01-15] MEDS: Sodium Chloride 0.9% 1,000 ML IV SCH ×2 (05:28→15:44)
[2017-01-15 07:11] LABS: HEMATOCRIT 40.5 % (36.0-48.0); MEAN CELL VOLUME 90.4 fl (80.0-105.0); MEAN CORPUSCULAR HEMOGLOBIN 29.9 pg (25.0-35.0); MEAN CORPUSCULAR HGB CONC 33.1 g/dl (31.0-37.0); MEAN PLATELET VOLUME 9.6 fl (7.0-11.0); WHITE BLOOD COUNT 9.3 10^3/ul (4.5-11.0)
[2017-01-15 07:17] LABS: BLOOD UREA NITROGEN 11 mg/dL (7-21); CALCIUM 8.9 mg/dL (8.4-10.5); CARBON DIOXIDE 33 mmol/L (21-33); CHLORIDE 102 mmol/L (98-107); GFR AFRICAN-AMERICAN > 60; GLUCOSE,RANDOM 87 mg/dL (70-110); POTASSIUM 3.4 mmol/L (3.6-5.0); SODIUM 142 mmol/L (132-148)
[2017-01-15] MEDS ORDERED: Potassium Chloride 20 mEq ER Tab PO ONE (07:33)
[2017-01-15] MEDS: Albuterol 0.083% Inhal Sol (2.5 mg/3 mL) UD IH PRN ×2 (07:38→13:11)
--- NOTE | 2017-01-15 08:44 | PN ---
DATE: 01/14/2017 SUBJECTIVE: The patient is a 51-year-old female. The patient seen and examined on the bed side, looking comfortable, having hematuria. No nausea or vomiting. No diarrhea. No fever. No chills. No headache. No dizziness. PHYSICAL EXAMINATION: VITAL SIGNS: Temperature 97.6, pulse 61, blood pressure 133/70, respiratory rate 18. HEENT: Head; normocephalic and atraumatic. Eyes; PERRLA. Extraocular muscles intact. Conjunctivae clear. Nose patent. Mucous membrane moist. NECK: Supple. No carotid bruits. No JVD or thyromegaly. CHEST: Bilaterally symmetrical. HEART: S1 and S2 positive. LUNGS: Clear to auscultation. ABDOMEN: Soft. Bowel sounds positive. No organomegaly. EXTREMITIES: No edema. No cyanosis. NEUROLOGIC: The patient is awake and alert. Moving all 4 extremities. No focal deficits. LABORATORY DATA: White blood cell 9.1, hemoglobin 13.1, hematocrit 36.4 and platelets 217. Sodium 138, potassium 3.1, BUN 13, creatinine 0.5. Calcium 81. Magnesium 1.9, TSH 0.16. MEDICATIONS: Albuterol, Dilaudid, Flexeril, fluticasone, gentamicin, Lipitor, hydrochlorothiazide, amlodipine, nortriptyline, Pepcid, levothyroxine, and Singulair. ASSESSMENT: The patient is a 51-year-old lady with leukocytosis, hypokalemia, hypothyroidism, getting levothyroxine, has hydronephrosis, and nephrolithiasis. PLAN: cystoscopy with retrograde , placement of pigtail stent, ureteroscopy with holmium laser lithotripsy, done by Dr. Cagle, went for retrograde pyelogram. The patient has history of COPD, asthma, chronic pain syndrome, recurrent sinusitis, fibromyalgia, hypothyroidism, hypertension, anxiety, obstructive uropathy. procedure, doing better. GI and DVT prophylaxis. Repeat labs. We will follow. Linda Raman MD [facility]
[2017-01-15] MEDS: cefTRIAXone 1 gm 1 GM/100 ML BAG IVPB SCH (09:43)
[2017-01-15] MEDS: HYDROmorphone 0.5 mg/0.5 ml ISec IVP PRN ×4 (09:44→22:20)
[2017-01-15] MEDS: Levothyroxine 125 MCG TAB PO SCH (09:47)
[2017-01-15] MEDS: VILANTEROL IH SCH (10:04)
[2017-01-15] MEDS: FLUTICASONE IH SCH (10:04)
--- NOTE | 2017-01-15 11:46 | RAD ---
HISTORY: is there still a stone COMPARISON: CT abdomen and pelvis 01/13/2017 FINDINGS: BOWEL: Diffuse colonic stool retention . No bowel obstruction. BONES: Normal. OTHER FINDINGS: Right double-J ureteral stent in place. The previously referenced distal right ureteral obstructing calculus is not appreciated on any these views along the course of the ureteral stent. It is also not appreciated in the bladder. The tiny punctate 1 to 2 mm hyperdensities over the left mid renal pole are probably relating to CT referenced nonobstructing calculi. Potential tiny 1 to 3 mm calculi over the right mid and lower renal pole are probably noted on this exam on the oblique views . IMPRESSION: The obstructing distal right ureteral calculus referenced on CT is not evident on this exam. The less than 4 mm nonobstructing bilateral renal calculi are believe faintly perceived on this exam.
--- NOTE | 2017-01-15 15:58 | PN ---
PULMONARY PROGRESS NOTE DATE: 01/15/2017 REFERRING PHYSICIAN: Linda Raman MD SUBJECTIVE: She is lying in the bed, sleepy, arousable. No headache. No rhinitis. Has a mild cough. No shortness of breath. No chest pain. No nausea. No vomiting. Does have a right lower quadrant some tenderness. No leg pain or leg swelling. No dysuria. PHYSICAL EXAMINATION: GENERAL: In no acute distress. VITAL SIGNS: Temp is 98, heart rate is 66, respiratory rate is 16, blood pressure 157/86, pulse ox 96% on 3 L nasal cannula. HEENT: Moist mucous membrane. Crowded airway. NECK: Supple. No JVD. LUNGS: Have diffuse scattered rhonchi. Prolonged expiratory phase. HEART: S1 and S2. ABDOMEN: Soft with mild right lower quadrant tenderness. EXTREMITIES: There is no edema. NEUROLOGICAL: She is sleepy, arousable. Follows simple commands. LABORATORY DATA: Shows hemoglobin 13.4, hematocrit 40.5, WBC 9.3, platelet count is 243. Sodium 142, potassium 3.4, chloride 102, bicarbonate 33, BUN is 11, creatinine 0.5, glucose 87, calcium is 8.9. Microbiology: Urine has Proteus mirabilis. Blood cultures have been negative. Has abdominal x-ray done, which shows no obstructive distal right ureteral calculus referred on CT is not evident on this exam. The less than 4 mm nonobstructive bilateral renal calculi are I believe of faintly perceived on this exam. MEDICATIONS: She is on albuterol nebulizer q.4 hours p.r.n., Dilaudid 0.5 mg q.4 hours p.r.n., Flexeril is 10 mg twice a day, Breo Ellipta 1 puff daily, gentamicin 80 mg q.24 hourly, Lipitor 40 mg daily, hydrochlorothiazide 25 mg daily, Norvasc 10 mg daily, Nortriptyline 25 mg twice a day, Pepcid 40 mg at bedtime, Pyridium 200 mg q.8 hours, Rocephin 1 g IV daily, Singulair 10 mg daily, IV fluid normal saline 100 mL/hour, levothyroxine 250 mcg daily, Toradol 30 mg q.6 hours p.r.n. IMPRESSION AND PLAN: Obstructive uropathy, status post ureteral stone extraction, status post cystoscopy; chronic obstructive lung disease; fibromyalgia; anxiety disorder; hypothyroid; urinary tract infection, is being treated with antibiotics. Keep head at 45 degrees. Sleep apnea precaution. Continue bronchodilator, gastric prophylaxis, sequential compression device to lower extremity. Thank you and we will follow with you. Karmen Harrison MD
--- NOTE | 2017-01-16 03:38 | PN ---
DATE: 01/15/2017 SUBJECTIVE: The patient is a 51-year-old female. The patient was seen and examined at the bedside on 01/15/2017, and looking comfortable. The patient is vague. No headache. No rhinitis. Has mild cough. No shortness of breath. No chest pain. No nausea, vomiting, or diarrhea. Still having mild bleeding as per patient her ureteral stent came out when she was cleaning herself in the morning, but should be seen by Dr. Laron Cagle. PHYSICAL EXAMINATION: VITAL SIGNS: Temperature 98, heart rate 66, respiratory 16, blood pressure 115/80, pulse oximetry 96% on 3 L nasal cannula. HEENT: Head, normocephalic and atraumatic. Eyes; PERRLA. Extraocular muscles are intact. Conjunctivae are clear. Nose is patent. Mucous membranes moist. NECK: Supple. No carotid bruits, JVD or thyromegaly. CHEST: Bilaterally symmetrical. HEART: S1 and S2 positive. LUNGS: Has a diffuse scattered rhonchi. Prolonged expiratory phase. ABDOMEN: Soft with mild right lower quadrant tenderness. EXTREMITIES: No edema. No cyanosis. NEUROLOGICAL: The patient is awake and alert, moving all 4 extremities. No focal deficit. LABORATORY DATA: Hemoglobin 13.4, hematocrit 40.5, white blood cells 9.3, and platelets 243. Sodium 142, potassium 3.4, BUN 11, creatinine 0.5, glucose 87. MEDICATIONS: Albuterol, Dilaudid, Flexeril, Breo, gentamicin, Lipitor, hydrochlorothiazide, Norvasc, nortriptyline, Pepcid, Pyridium, Rocephin, Singulair, levothyroxine, and Toradol. ASSESSMENT AND PLAN: Ms. Vidhya Bradford has history of obstructive uropathy status post a ureteral stone extraction status post cystoscopy and ureteral stent and as per patient, the stent came out; chronic obstructive lung disease; fibromyalgia; anxiety disorder; hypothyroidism; urinary tract infection, getting IV antibiotics; sleep apnea precautions, gastrointestinal and deep venous thrombosis prophylaxis. Length of time, discussion done with the patient, the patient's family and nursing staff. Family was on the bedside. All questions answered. Linda Danisha, MD [facility] # [id number] JERONIMO
[2017-01-16] MEDS: Sodium Chloride 0.9% 1,000 ML IV SCH (05:52)
[2017-01-16 06:34] LABS: BLOOD UREA NITROGEN 17 mg/dL (7-21); CALCIUM 8.9 mg/dL (8.4-10.5); CARBON DIOXIDE 29 mmol/L (21-33); CHLORIDE 105 mmol/L (95-110); GFR AFRICAN-AMERICAN > 60; GLUCOSE,RANDOM 84 mg/dL (70-110); POTASSIUM 3.6 mmol/L (3.6-5.0); SODIUM 139 mmol/L (132-148)
[2017-01-16] MEDS: Levothyroxine 125 MCG TAB PO SCH (08:16)
[2017-01-16] MEDS: HYDROmorphone 0.5 mg/0.5 ml ISec IVP PRN (08:17)
[2017-01-16 08:24] VITALS: BP 137/97; PULSE 68; RESP 22; TEMP 98; O2SAT 99
[2017-01-16] MEDS: cefTRIAXone 1 gm 1 GM/100 ML BAG IVPB SCH (10:01)
[2017-01-16] MEDS: VILANTEROL IH SCH (10:08)
[2017-01-16] MEDS: FLUTICASONE IH SCH (10:08)
--- NOTE | 2017-01-16 13:42 | CP.PCM.PN ---
<Kalani Bueno - Last Filed: 01/16/17 13:38> Subjective - Date & Time of Evaluation Date of Evaluation: 01/16/17 Time of Evaluation: 12:30 - Subjective Subjective: 51 yr female with h/o kidney stones, asthma, fibromyalgia, hyperlipidemia, hypothyroidism, and degenerative joint disease. She is admitted for obstructive uropathy s/p ureteral stone extraction s/p cystoscopy & ureterscopy of stent. Per the pt, the stent came out. 8/10 pain present in the R pelvic area. Patient denies any fever, chills, chest pain, shortness of breath , nausea, vomiting, diarrhea, neck pain, headache, dizziness, or any other complaints. Objective - Vital Signs/Intake and Output Vital Signs (last 24 hours): Temp Pulse Resp BP Pulse Ox 98 F 68 22 137/97 H 99 01/16/17 07:00 01/16/17 07:00 01/16/17 07:00 01/16/17 10:06 01/16/17 07:00 Intake and Output: 01/16/17 01/16/17 06:59 18:59 Intake Total 180 Balance 180 - Medications Medications: Current Medications Albuterol Sulfate (Albuterol 0.083% Inhal Radha (2.5 Mg/3 Ml) Ud) 2.5 mg IH Q4 PRN PRN Reason: Wheezing Last Admin: 01/15/17 13:11 Dose: 2.5 mg Amlodipine Besylate (Norvasc) 10 mg PO DAILY [facility] Last Admin: 01/16/17 10:06 Dose: 10 mg Atorvastatin Calcium (Lipitor) 40 mg PO QPM [facility] Last Admin: 01/15/17 17:13 Dose: 40 mg Cyclobenzaprine HCl (Flexeril) 10 mg PO BID [facility] Last Admin: 01/16/17 10:05 Dose: 10 mg Famotidine (Pepcid) 40 mg PO HS [facility] Last Admin: 01/15/17 22:36 Dose: 40 mg Hydrochlorothiazide (Microzide) 25 mg PO DAILY [facility] Last Admin: 01/16/17 10:05 Dose: 25 mg Hydromorphone HCl (Dilaudid) 0.5 mg IVP Q4H PRN PRN Reason: Pain, Mild (1-3) Last Admin: 01/16/17 08:17 Dose: 0.5 mg Ceftriaxone Sodium (Rocephin 1 Gram Ivpb) 1 gm in 100 mls @ 100 mls/hr IVPB DAILY [facility] PRN Reason: Protocol Last Admin: 01/16/17 10:01 Dose: 100 mls/hr Sodium Chloride (Sodium Chloride 0.9%) 1,000 mls @ 100 mls/hr IV .Q10H [facility] Last Admin: 01/16/17 05:52 Dose: 100 mls/hr Gentamicin Sulfate 80 mg/ (Sodium Chloride) 102 mls @ 100 mls/hr IVPB Q24H [facility] PRN Reason: Protocol Last Admin: 01/15/17 15:45 Dose: 100 mls/hr Ketorolac Tromethamine (Toradol) 30 mg IVP Q6 PRN PRN Reason: Pain, moderate (4-7) Last Admin: 01/16/17 13:12 Dose: 30 mg Levothyroxine Sodium (Synthroid) 250 mcg PO DAILY [facility] Last Admin: 01/16/17 08:16 Dose: 250 mcg Montelukast Sodium (Singulair) 10 mg PO HS [facility] Last Admin: 01/15/17 22:37 Dose: 10 mg Fluticasone/Vilanterol [Breo Ellipta 200-25 Mcg Inh (Home) 1 each IH DAILY [facility] Last Admin: 01/16/17 10:08 Dose: Not Given Nortriptyline HCl (Pamelor) 25 mg PO BID [facility] Last Admin: 01/16/17 10:05 Dose: 25 mg Phenazopyridine HCl (Pyridium) 200 mg PO Q8 [facility] Last Admin: 01/16/17 13:13 Dose: 200 mg - Labs Labs: 01/15/17 06:49 01/16/17 06:00 - Constitutional Appears: No Acute Distress - Head Exam Head Exam: NORMOCEPHALIC - Eye Exam Eye Exam: PERRL - ENT Exam ENT Exam: Mucous Membranes Moist - Neck Exam Neck Exam: Normal Inspection - Respiratory Exam Respiratory Exam: Clear to Ausculation Bilateral - Cardiovascular Exam Cardiovascular Exam: +S1, +S2 - GI/Abdominal Exam GI & Abdominal Exam: Soft, Tenderness, Normal Bowel Sounds - Rectal Exam Rectal Exam: Deferred - Exam Additional comments: R pelvic tenderness noted when palpating. - Extremities Exam Extremities Exam: Full ROM, Normal Inspection - Back Exam Back Exam: NORMAL INSPECTION - Neurological Exam Neurological Exam: Alert, Awake, Oriented x3 - Psychiatric Exam Psychiatric exam: Normal Mood - Skin Skin Exam: Dry, Intact, Warm Assessment and Plan (1) Anxiety Status: Chronic (2) Hypothyroid Status: Chronic (3) COPD (chronic obstructive pulmonary disease) Status: Chronic (4) Fibromyalgia Status: Chronic (5) Renal colic on right side Status: Acute (6) UTI (urinary tract infection) Status: Acute (7) Essential hypertension Status: Chronic (8) Kidney stone Status: Acute - Assessment and Plan (Free Text) Plan: Urine culture (+) Proteus Mirabilis; On day 3 of abx, gentamycin & rochephin. Needs TCU transfer to continue abx per Infectious Disease consult. 01/15 XRay abd = Obstructing distal R uteral calculus. continue Toradol, IV fluids, & prescribed treatment. Dr. Gay for Urology. Dr. Hunter boogieds HOB 45, Sleep apnea precautions. Gastric prophlaxis & SCD to B/L lower extremities. <Linda Raman - Last Filed: 01/16/17 13:53> Objective - Vital Signs/Intake and Output Vital Signs (last 24 hours): Temp Pulse Resp BP Pulse Ox 98 F 68 22 137/97 H 99 01/16/17 07:00 01/16/17 07:00 01/16/17 07:00 01/16/17 10:06 01/16/17 07:00 Intake and Output: 01/16/17 01/16/17 06:59 18:59 Intake Total 180 Balance 180 - Medications Medications: Current Medications Albuterol Sulfate (Albuterol 0.083% Inhal Radha (2.5 Mg/3 Ml) Ud) 2.5 mg IH Q4 PRN PRN Reason: Wheezing Last Admin: 01/15/17 13:11 Dose: 2.5 mg Amlodipine Besylate (Norvasc) 10 mg PO DAILY [facility] Last Admin: 01/16/17 10:06 Dose: 10 mg Atorvastatin Calcium (Lipitor) 40 mg PO QPM [facility] Last Admin: 01/15/17 17:13 Dose: 40 mg Cyclobenzaprine HCl (Flexeril) 10 mg PO BID [facility] Last Admin: 01/16/17 10:05 Dose: 10 mg Famotidine (Pepcid) 40 mg PO HS [facility] Last Admin: 01/15/17 22:36 Dose: 40 mg Hydrochlorothiazide (Microzide) 25 mg PO DAILY [facility] Last Admin: 01/16/17 10:05 Dose: 25 mg Hydromorphone HCl (Dilaudid) 0.5 mg IVP Q4H PRN PRN Reason: Pain, Mild (1-3) Last Admin: 01/16/17 08:17 Dose: 0.5 mg Ceftriaxone Sodium (Rocephin 1 Gram Ivpb) 1 gm in 100 mls @ 100 mls/hr IVPB DAILY [facility] PRN Reason: Protocol Last Admin: 01/16/17 10:01 Dose: 100 mls/hr Sodium Chloride (Sodium Chloride 0.9%) 1,000 mls @ 100 mls/hr IV .Q10H [facility] Last Admin: 01/16/17 05:52 Dose: 100 mls/hr Gentamicin Sulfate 80 mg/ (Sodium Chloride) 102 mls @ 100 mls/hr IVPB Q24H [facility] PRN Reason: Protocol Last Admin: 01/15/17 15:45 Dose: 100 mls/hr Ketorolac Tromethamine (Toradol) 30 mg IVP Q6 PRN PRN Reason: Pain, moderate (4-7) Last Admin: 01/16/17 13:12 Dose: 30 mg Levothyroxine Sodium (Synthroid) 250 mcg PO DAILY [facility] Last Admin: 01/16/17 08:16 Dose: 250 mcg Montelukast Sodium (Singulair) [address] [facility] Last Admin: 01/15/17 22:37 Dose: 10 mg Fluticasone/Vilanterol [Breo Ellipta 200-25 Mcg Inh (Home) 1 each IH DAILY [facility] Last Admin: 01/16/17 10:08 Dose: Not Given Nortriptyline HCl (Pamelor) 25 mg PO BID [facility] Last Admin: 01/16/17 10:05 Dose: 25 mg Phenazopyridine HCl (Pyridium) 200 mg PO Q8 [facility] Last Admin: 01/16/17 13:13 Dose: 200 mg - Labs Labs: 01/15/17 06:49 01/16/17 06:00 Assessment and Plan - Assessment and Plan (Free Text) Plan: pt is seen and E, at bed side , still had rt , flank pain , s/p ureter stents , removal , need i/v anb . will need tcu for cont. of care , agreed above . d/d with [facility]
--- NOTE | 2017-01-17 03:18 | DS ---
The patient is a 51-year-old female. For more details, please see our progress notes of that day. Linda Raman MD
--- NOTE | 2017-03-07 03:08 | OP ---
PROCEDURE DATE: PREOPERATIVE DIAGNOSES: Urolithiasis, hematuria, hydronephrosis, severe flank pain. POSTOPERATIVE DIAGNOSES: Urolithiasis, hematuria, hydronephrosis, severe flank pain. PROCEDURE: Cystoscopy, ureteroscopy, bilateral retrograde pyelogram, retrograde insertion of a double J-stent, and holmium laser lithotripsy of stone. COMPLICATIONS: There were no complications. FINDINGS: 1. Normal bladder mucosa. 2. Stone was identified. 3. We ureteroscoped and I broke the stone. PROCEDURES PERFORMED: Cystoscopy, retrograde pyelogram, ureteroscopy, holmium YAG laser lithotripsy, insertion of double J-stent. INDICATIONS: See history and physical for further details. A very pleasant lady, I discussed all of this with the patient. She would like to avoid stenting if possible. We discussed the possibility as well as stent with her with dangles. We discussed all the risks, benefits and alternatives, and she is here now for the above. OPERATIVE FINDING: We identified the stone, we did a laser, we shattered it, and we inserted a double J-stent. The patient tolerated the above procedure without complications. DESCRIPTION OF PROCEDURE: After obtaining informed consent, the patient was placed on the table. routine monitors were placed. Time-outs were called to confirm the patient. The patient is confirmed. We introduced cystoscope via urethra. Ureteral orifice identified. Retrograde pyelogram was performed. We now put a wire up to the kidney. We chased the stone with ureteroscope, dilated the distal ureter. Once we did this, we identified the stone and provide holmium YAG laser lithotripsy energy until we broke the stone fragments very nicely. See the picture of the x-rays on the chart. The whole thing was done with x-ray and fluoroscopic imaging and also with the use of a camera. Overall, the patient tolerated the procedure well without complications. Laron Cagle MD
== END 2017-01-16 14:39 | DRG 669 ==
LOC: ED 03:42 → ERH 05:35 → 5RSO 07:27 → 5RNO 16:36 → OBSVTOIN 21:39 → 5RNO 01-14 17:27
PROVIDERS: ADMIT Internal Medicine; ATTEND Internal Medicine
PROC: BT1DZZZ Fluoroscopy of Right Kidney, Ureter and Bladder (ICD-10-PCS; 2017-01-14)
PROC: 0TC68ZZ Extirpation of Matter from Right Ureter, Via Natural or Artificial Opening Endoscopic (ICD-10-PCS; principal; 2017-01-14 14:00)
PROC: 0T768DZ Dilation of Right Ureter with Intraluminal Device, Via Natural or Artificial Opening Endoscopic (ICD-10-PCS; 2017-01-14 14:00)
DX: N13.2 Hydronephrosis with renal and ureteral calculous obstruction (principal); E03.9 Hypothyroidism, unspecified; I10 Essential (primary) hypertension; E78.5 Hyperlipidemia, unspecified; M79.7 Fibromyalgia; E78.00 Pure hypercholesterolemia, unspecified; E87.6 Hypokalemia; F41.9 Anxiety disorder, unspecified; J32.9 Chronic sinusitis, unspecified; J44.9 Chronic obstructive pulmonary disease, unspecified; K21.9 Gastro-esophageal reflux disease without esophagitis; N39.0 Urinary tract infection, site not specified; Z79.899 Other long term (current) drug therapy; Z87.11 Personal history of peptic ulcer disease; Z87.442 Personal history of urinary calculi; Z90.710 Acquired absence of both cervix and uterus; H04.123 Dry eye syndrome of bilateral lacrimal glands; R30.0 Dysuria; R40.2412 Glasgow coma scale score 13-15, at arrival to emergency department; G47.30 Sleep apnea, unspecified; G89.4 Chronic pain syndrome; M19.90 Unspecified osteoarthritis, unspecified site; B96.4 Proteus (mirabilis) (morganii) as the cause of diseases classified elsewhere

== ENCOUNTER 2017-01-16 14:38 | Inpatient (IN) | payer OTHER ==
[2017-01-16] MEDS ORDERED: Gentamicin 80 mg/2mL Inj. IVPB SCH (16:00)
[2017-01-16] MEDS ORDERED: Gentamicin 80mg/50ml NS 80 MG/50 ML BAG IVPB SCH (16:45)
[2017-01-16] MEDS: Sodium Chloride 0.9% 1,000 ML IV SCH (16:52)
[2017-01-16] MEDS: HYDROmorphone 0.5 mg/0.5 ml ISec IVP PRN ×2 (16:53→20:56)
[2017-01-16 18:21] VITALS: BMI 35.9
[2017-01-16] MEDS ORDERED: Influenza Vaccine 60 mcg/0.5 mL SYR (4YR UP) IM ONE (18:22)
[2017-01-16] MEDS: Albuterol 0.083% Inhal Sol (2.5 mg/3 mL) UD IH PRN ×2 (21:16→23:22)
[2017-01-17] MEDS: HYDROmorphone 0.5 mg/0.5 ml ISec IVP PRN ×6 (01:04→22:15)
[2017-01-17] MEDS: Sodium Chloride 0.9% 1,000 ML IV SCH (03:56)
[2017-01-17] MEDS: Levothyroxine 125 MCG TAB PO SCH (05:14)
[2017-01-17] MEDS: cefTRIAXone 1 gm 1 GM/100 ML BAG IVPB SCH ×2 (05:15→09:29)
--- NOTE | 2017-01-17 08:59 | CON ---
DATE: 01/16/2017 PULMONARY PROGRESS NOTE REFERRING PHYSICIAN: Dr. Raman. REASON FOR CONSULTATION: Cough, shortness of breath. HISTORY OF PRESENT ILLNESS: This is a 51-year-old female well known to me from previous hospitalization, recently admitted with obstructive renal stone, underwent cystoscopy and extraction of stones, still has some right lower abdominal pain on IV fluids, mild cough. No sputum production. No nausea, no vomiting, no diarrhea. No leg pain or leg swelling. PAST MEDICAL HISTORY: Chronic obstructive lung disease, history of chronic sinusitis, fibromyalgia, hypothyroid, hypertension, anxiety disorder, sleep apnea syndrome, renal stone. ALLERGIES: NONE KNOWN. FAMILY HISTORY: No significant cardiopulmonary disease reported. SOCIAL HISTORY: Nonsmoker and nondrinker. MEDICATIONS: She is on albuterol nebulizer q. 4 hours p.r.n., Dilaudid 0.5 mg q. 4 hours p.r.n., Breo Ellipta 1 puff daily, mg q. 24 hours, hydrochlorothiazide 25 mg daily, Lipitor 40 mg daily, Norvasc 10 mg daily, nortriptyline 25 mg 3 times a day, Pepcid 40 mg daily, Pyridium 200 mg p.o. p.c., Rocephin 1 g daily, Singulair 10 mg daily, IV fluid normal saline 100 mL per hour, Synthroid daily. REVIEW OF SYSTEMS: No headache, no rhinitis. Mild cough and shortness of breath. No chest pain, no nausea, no vomiting. Mild abdominal pain. No leg pain or leg swelling. PHYSICAL EXAMINATION: GENERAL: Lying in the bed, in no apparent distress. VITAL SIGNS: Temp is 98, heart rate is 70, respiratory rate is 16, blood pressure 116/84, pulse ox 100% on nasal cannula. HEENT: Moist mucous membrane. Crowded airway. Mallampati score is IV. NECK: Supple. No JVD. LUNGS: Fair airflow . HEART: S1 and S2. ABDOMEN: Soft. Right lower quadrant mild tenderness on palpation. EXTREMITIES: There is no edema. NEUROLOGIC: Awake, alert, follows simple commands. LABORATORY DATA: Shows hemoglobin 13.4, hematocrit 40.5, WBC 9.3, platelet is 243. Sodium 139, potassium 3.6, chloride 105, bicarbonate 29, BUN 17, creatinine 0.6, glucose 84, calcium is 8.9. Microbiology: Urine culture has Proteus mirabilis. Blood culture, there is no growth. IMPRESSION AND PLAN: Obstructive uropathy, status post cystoscopy and extraction of stone, chronic obstructive lung disease, fibromyalgia, anxiety disorder, hypothyroidism, urinary tract infection, may have sleep apnea syndrome plus noncompliance with a followup . Continue bronchodilator and antibiotics. Urology and infectious disease followup. Thank you and we will follow with you. Karmen Harrison MD
[2017-01-17] MEDS: Non Formulary Medication (Fluticasone/Vilanterol [Breo Ellipta 200-25 Mcg Inh] 1 EACH) IH SCH (09:23)
[2017-01-17] MEDS ORDERED: cefTRIAXone 1 gm 1 GM/100 ML BAG IVPB SCH (10:00)
[2017-01-17] MEDS ORDERED: Non Formulary Medication (Ceftriaxone 1 Gm 1 GM) IVPB SCH (10:00)
[2017-01-17] MEDS: Gentamicin 80mg/50ml NS 80 MG/50 ML BAG IVPB SCH (17:57)
[2017-01-17] MEDS: Albuterol 0.083% Inhal Sol (2.5 mg/3 mL) UD IH PRN ×2 (22:25→22:29)
--- NOTE | 2017-01-18 00:04 | CP.PCM.PN ---
Subjective - Date & Time of Evaluation Date of Evaluation: 01/17/17 Time of Evaluation: 05:00 - Subjective Subjective: 51 yr female history of Hyperlipdemia, HTN, DM II, Hypothyroidism, GERD , UTI, Fibromyaglia, DJD, Osteoporosis, Spinal stenosis, Anxiety, Depression, & Asthma. She is reporting a 7/10 pain in her R flank area that is improving with antibiotics & pain medications. She appears comfortable in bed. Denines fever, chills, N/V, or constipation. No distress noted Objective - Vital Signs/Intake and Output Vital Signs (last 24 hours): Temp Pulse Resp BP Pulse Ox 98.3 F 80 20 132/82 98 01/17/17 15:57 01/17/17 15:57 01/17/17 15:57 01/17/17 15:57 01/17/17 15:57 Intake and Output: 01/17/17 01/18/17 18:59 06:59 Intake Total 300 Balance 300 - Medications Medications: Current Medications Albuterol Sulfate (Albuterol 0.083% Inhal Radha (2.5 Mg/3 Ml) Ud) 2.5 mg IH Q4 PRN PRN Reason: Wheezing Last Admin: 01/17/17 22:29 Dose: 2.5 mg Amlodipine Besylate (Norvasc) 10 mg PO DAILY [facility] Last Admin: 01/17/17 09:25 Dose: 10 mg Atorvastatin Calcium (Lipitor) 40 mg PO QPM [facility] Last Admin: 01/17/17 17:57 Dose: 40 mg Enoxaparin Sodium (Lovenox) 30 mg SC DAILY [facility] PRN Reason: Protocol Famotidine (Pepcid) 40 mg PO HS [facility] Last Admin: 01/17/17 21:40 Dose: 40 mg Hydrochlorothiazide (Hydrodiuril) 25 mg PO DAILY [facility] Last Admin: 01/17/17 09:27 Dose: 25 mg Hydromorphone HCl (Dilaudid) 0.5 mg IVP Q4H PRN PRN Reason: Pain, Mild (1-3) Last Admin: 01/17/17 22:15 Dose: 0.5 mg Sodium Chloride (Sodium Chloride 0.9%) 1,000 mls @ 100 mls/hr IV .Q10H [facility] Last Admin: 01/17/17 03:56 Dose: 100 mls/hr Ceftriaxone Sodium (Rocephin 1 Gram Ivpb) 1 gm in 100 mls @ 100 mls/hr IVPB DAILY [facility] PRN Reason: Protocol Last Admin: 01/17/17 09:29 Dose: Not Given Gentamicin Sulfate/Sodium Chloride (Gentamicin 80mg/50ml Ns) 80 mg in 50 mls @ 100 mls/hr IVPB 1800 [facility] PRN Reason: Protocol Last Admin: 01/17/17 17:57 Dose: 100 mls/hr Levothyroxine Sodium (Synthroid) 250 mcg PO 0600 [facility] Last Admin: 01/17/17 05:14 Dose: 250 mcg Montelukast Sodium (Singulair) 10 mg PO HS [facility] Last Admin: 01/17/17 21:41 Dose: 10 mg Non-Formulary Medication (Fluticasone/Vilanterol [Breo Ellipta 200-25 Mcg Inh]) 1 each IH DAILY [facility] Last Admin: 01/17/17 09:23 Dose: 1 each Nortriptyline HCl (Pamelor) 25 mg PO TID [facility] Last Admin: 01/17/17 17:57 Dose: Not Given Phenazopyridine HCl (Pyridium) 200 mg PO PC [facility] Last Admin: 01/17/17 17:57 Dose: 200 mg - Constitutional Appears: Well, No Acute Distress - Head Exam Head Exam: NORMAL INSPECTION, NORMOCEPHALIC - ENT Exam ENT Exam: Mucous Membranes Moist - Neck Exam Neck Exam: Normal Inspection - Respiratory Exam Respiratory Exam: Clear to Ausculation Bilateral, NORMAL BREATHING PATTERN - Cardiovascular Exam Cardiovascular Exam: REGULAR RHYTHM, +S1, +S2 - GI/Abdominal Exam GI & Abdominal Exam: Soft, Normal Bowel Sounds - Exam Additional comments: R pelvic pain - Back Exam Additional comments: R flank pain - Neurological Exam Neurological Exam: Alert, Awake, Oriented x3 - Psychiatric Exam Psychiatric exam: Flat Affect - Skin Skin Exam: Dry, Intact, Normal Color, Warm Assessment and Plan (1) UTI (urinary tract infection) Status: Acute (2) Renal colic on right side Status: Acute (3) COPD (chronic obstructive pulmonary disease) Status: Chronic (4) Asthmatic bronchitis Status: Chronic (5) Fibromyalgia Status: Chronic (6) Essential hypertension Status: Chronic - Assessment and Plan (Free Text) Plan: UTI * improvement noted with rocephin and genatmycin IV Renal colic, R side * improvement noted. reports relief w/ pain meds. * Dr. Lito Cagle - Urologist COPD * Dr. Katelin Harrison - Pulmo * Continue bronchodilator & antibiotics. Asthma bronchitis * see above Fibromyalgia * stable, continue prescribed regimen HTN * stable, continue prescribed regimen
--- NOTE | 2017-01-18 02:26 | PN ---
PULMONARY PROGRESS NOTE DATE: 01/17/2017 REFERRING PHYSICIAN: Linda Raman MD SUBJECTIVE: She is lying in the bed, head at 35 degrees. Night was unremarkable. Feels better. Mild cough. No chest pain. No nausea. No vomiting. Still has some right lower quadrant mild tenderness. No leg swelling. OBJECTIVE: GENERAL: In no acute distress. VITAL SIGNS: Temperature is 98, heart rate is 80, respiratory rate is 20, blood pressure is 132/82, and pulse ox is 98% on room air. HEENT: Moist mucous membranes. Crowded airway. Mallampati score is 4. NECK: Supple. No JVD. LUNGS: Has a fair airflow with few rhonchi. HEART: S1 and S2. ABDOMEN: Soft and nontender. No organomegaly. EXTREMITIES: There is no edema. NEUROLOGIC: Awake, alert, and follow simple commands. LABORATORY DATA: Shows blood sugar this morning 138. MEDICATIONS: She is on albuterol/Atrovent nebulizer q.4 hours p.r.n., Dilaudid 0.5 mg q.4 hours p.r.n., also on Breo Ellipta 1 puff daily, hydrochlorothiazide 25 mg daily, Lipitor 20 mg daily, Norvasc 10 mg daily, nortriptyline 25 mg 3 times a day, Pepcid 40 mg at bedtime, Pyridium 200 mg p.c., Rocephin 1 g IV daily, Singulair 10 mg daily, IV fluid normal saline 100 mL per hour, and Synthroid 250 mcg daily. IMPRESSION AND PLAN: Obstructive uropathy, status post cystoscopy and extraction of stone, chronic obstructive lung disease, fibromyalgia, anxiety disorder, hypothyroidism, urinary tract infection, she may have sleep apnea syndrome, and refused sleep study. From pulmonary point of view, doing okay. Continue bronchodilator. Keep head at 45 degrees. Gastroesophageal reflux disease precaution. Pain management. Antibiotics. Gastric prophylaxis. Deep venous thrombosis prophylaxis. Thank you and we will follow with you. Karmen Harrison MD
[2017-01-18] MEDS: HYDROmorphone 0.5 mg/0.5 ml ISec IVP PRN ×5 (02:56→21:46)
[2017-01-18] MEDS: Sodium Chloride 0.9% 1,000 ML IV SCH ×3 (04:28→23:56)
[2017-01-18] MEDS: Levothyroxine 125 MCG TAB PO SCH (05:20)
[2017-01-18] MEDS: Albuterol 0.083% Inhal Sol (2.5 mg/3 mL) UD IH PRN ×3 (07:15→19:21)
[2017-01-18] MEDS: Enoxaparin 30 mg Syringe SC SCH (10:49)
[2017-01-18] MEDS: Non Formulary Medication (Fluticasone/Vilanterol [Breo Ellipta 200-25 Mcg Inh] 1 EACH) IH SCH (10:49)
[2017-01-18] MEDS: cefTRIAXone 1 gm 1 GM/100 ML BAG IVPB SCH (10:50)
--- NOTE | 2017-01-18 14:48 | HP ---
The patient is a 51-year-old female. The patient was admitted on 01/16/2017 in the TCU from Medical Floor. The patient was seen and examined by my nurse practitioner, Kalani on 01/17/2017. She did progress notes on 01/17/2017, but that is actually history and physical. The patient was seen and examined by me also. The patient has history of hypercholesterolemia, hypertension,diabetes mellitus, hypothyroidism, fibromyalgia, degenerative joint disease, osteoporosis, spinal stenosis, anxiety, depression, and asthma. The patient was admitted on the acute side for nephrolithiasis. Dr. Laron Cagle put the stents and stent was removed. The patient is still having pain but getting pain medication and antibiotics. ID consult called with Dr. Sarah and now we brought the patient to TCU for continuity of care for completion of the antibiotics and for physical therapy. For detail, see progress notes of my nurse practitioner, Kalani. Linda Raman MD MTDSusan
[2017-01-18] MEDS: Gentamicin 80mg/50ml NS 80 MG/50 ML BAG IVPB SCH (17:20)
--- NOTE | 2017-01-18 21:50 | PN ---
PULMONARY PROGRESS NOTE DATE: 01/18/2017 REFERRING PHYSICIAN: Linda Raman MD SUBJECTIVE: The patient is ambulating on the floor, feels better. Diffuse cough and shortness of breath. No chest pain. No nausea. No vomiting. No diarrhea. Mild right lower quadrant discomfort. No leg swelling. OBJECTIVE: GENERAL: In no acute distress. VITAL SIGNS: Temperature is 98, heart rate is 82, respiratory rate is 20, blood pressure is 121/82, and pulse ox is 96% on room air. HEENT: Moist mucous membranes. Crowded airway. NECK: Supple. No JVD. LUNGS: Has a fair airflow with few rhonchi. HEART: S1 and S2. ABDOMEN: Soft and nontender. No organomegaly. EXTREMITIES: No edema. NEUROLOGIC: Awake, alert, and follow simple commands. MEDICATIONS: She is on albuterol/Atrovent nebulizer q.4 hours p.r.n., Dilaudid 0.5 mg q.4 hours p.r.n., also on Breo Ellipta 1 puff daily, hydrochlorothiazide 25 mg daily, Lipitor 40 mg daily, Lovenox 30 mg subcutaneous daily, Norvasc 10 mg daily, nortriptyline 25 mg 3 times a day, Pepcid 40 mg at bedtime, Pyridium 200 mg daily, Rocephin 1 g IV daily, Singulair 10 mg daily, IV fluid normal saline 100 mL per hour, and Synthroid daily. LABORATORY DATA: Reviewed and no new lab is available since yesterday. IMPRESSION AND PLAN: Chronic obstructive lung disease, obstructive uropathy, status post cystoscopy and extraction of stone, may have sleep apnea syndrome, fibromyalgia, anxiety disorder, hypothyroid and urinary tract infection. From pulmonary point of view, doing okay. Continue antibiotics, bronchodilator. Keep head at 45 degrees. Sleep apnea precaution. Gastric prophylaxis. Deep venous thrombosis prophylaxis. Fall precaution. Continue therapy. Thank you and we will follow with you. Karmen Harrison MD
--- NOTE | 2017-01-18 23:38 | PN ---
DATE: SUBJECTIVE: The patient is 51-year-old female. The patient is seen and examined on the bedside, looking comfortable. No nausea, vomiting or diarrhea. No hematuria or hematochezia. No swelling of the legs. No chest pain or palpitation. No headache or dizziness. Flank pain is stated as 8/10. PHYSICAL EXAMINATION: VITAL SIGNS: Temperature 97.3, pulse 82, blood pressure 120/82, respiratory rate 18. HEENT: Head is normocephalic and atraumatic. Eyes; PERRLA. Extraocular muscles are intact. Conjunctivae are clear. Nose is patent. Mucous membrane moist. NECK: Supple. No carotid bruits. No JVD or thyromegaly. CHEST: Bilaterally symmetrical. HEART: S1 and S2 positive. LUNGS: Clear to auscultation. ABDOMEN: Soft. Bowel sounds present. No organomegaly. EXTREMITIES: No edema. No cyanosis. NEUROLOGIC: The patient is awake and alert. Moving all 4 extremities. No focal deficits. MEDICATIONS: Albuterol, Dilaudid, Ventolin, gentamicin, hydrochlorothiazide, Lipitor, Lovenox, amlodipine, nortriptyline, Pepcid, Pyridium, Rocephin, Singulair, Synthroid. LABORATORY DATA: Glucose is 138. ASSESSMENT AND PLAN: Ms. Vidhya Bradford is a 51-year-old lady with obstructive uropathy status post cystoscopy and extraction of the stone and putting ureter stent that was removed, chronic obstructive lung disease, fibromyalgia, anxiety disorder, hypothyroidism getting levothyroxine, urinary tract infection, sleep apnea syndrome. The patient refused sleep study. Continue bronchodilator 45 daily, schizoaffective disease, pain management. Antibiotic as per Infectious Disease, getting physical therapy. Gastrointestinal and deep venous thrombosis prophylaxis, repeat labs. We will follow. Linda Raman MD MTDD
[2017-01-19] MEDS: HYDROmorphone 0.5 mg/0.5 ml ISec IVP PRN ×6 (01:46→22:21)
[2017-01-19] MEDS: Levothyroxine 125 MCG TAB PO SCH (05:49)
[2017-01-19 06:43] LABS: HEMATOCRIT 38.7 % (36.0-48.0); MEAN CELL VOLUME 90.4 fl (80.0-105.0); MEAN CORPUSCULAR HEMOGLOBIN 29.2 pg (25.0-35.0); MEAN CORPUSCULAR HGB CONC 32.3 g/dl (31.0-37.0); MEAN PLATELET VOLUME 9.1 fl (7.0-11.0); RED CELL DISTRIBUTION WIDTH 13.2 % (11.5-14.5)
[2017-01-19 06:57] LABS: BLOOD UREA NITROGEN 15 mg/dL (7-21); CALCIUM 8.9 mg/dL (8.4-10.5); CARBON DIOXIDE 34 mmol/L (21-33); CHLORIDE 99 mmol/L (95-110); GFR AFRICAN-AMERICAN > 60; GLUCOSE,RANDOM 92 mg/dL (70-110); POTASSIUM 3.2 mmol/L (3.6-5.0); SODIUM 138 mmol/L (132-148)
[2017-01-19] MEDS: Albuterol 0.083% Inhal Sol (2.5 mg/3 mL) UD IH PRN ×3 (07:20→19:23)
[2017-01-19] MEDS: Enoxaparin 30 mg Syringe SC SCH ×2 (10:00→10:08)
[2017-01-19] MEDS: Non Formulary Medication (Fluticasone/Vilanterol [Breo Ellipta 200-25 Mcg Inh] 1 EACH) IH SCH (10:09)
[2017-01-19] MEDS: cefTRIAXone 1 gm 1 GM/100 ML BAG IVPB SCH (10:15)
[2017-01-19] MEDS: Sodium Chloride 0.9% 1,000 ML IV SCH ×2 (14:00→22:22)
[2017-01-19] MEDS: Gentamicin 80mg/50ml NS 80 MG/50 ML BAG IVPB SCH (17:27)
--- NOTE | 2017-01-19 18:51 | CP.PCM.CON ---
History of Present Illness - History of Present Illness History of Present Illness: Infectious Disease Consultation: January 19, 2017 51 yo female who presented with abdominal pain on 01/13/2017. In addition, the patient complains of burning on urination. Urine cultures showing Proteus growth that was sensitive to multiple antibiotics. Supportive care. On Ceftriaxone and Gentamicin for antibiotic coverage. PMHx: Asthma, Bronchitis, Renal Disease, Nephrolithiasis, Hypothyroidism, Peptic Ulcer Disease, Spinal Stenosis, Anxiety, Depression, Fibromyaglia, DJD, HTN PSHx: Hysterectomy, Kidney Stents Allergies: NKDA Social Hx: No tobacco, EtOH, or illicit drug use Active Medications Albuterol Sulfate (Albuterol 0.083% Inhal Radha (2.5 Mg/3 Ml) Ud) 2.5 mg IH Q4 PRN PRN Reason: Wheezing Last Admin: 01/19/17 14:26 Dose: 2.5 mg Amlodipine Besylate (Norvasc) 10 mg PO DAILY [facility] Last Admin: 01/19/17 10:08 Dose: 10 mg Atorvastatin Calcium (Lipitor) 40 mg PO QPM [facility] Last Admin: 01/19/17 17:28 Dose: 40 mg Enoxaparin Sodium (Lovenox) 30 mg SC DAILY [facility] PRN Reason: Protocol Last Admin: 01/19/17 10:00 Dose: Not Given Famotidine (Pepcid) 40 mg PO HS [facility] Last Admin: 01/18/17 21:46 Dose: 40 mg Hydrochlorothiazide (Hydrodiuril) 25 mg PO DAILY [facility] Last Admin: 01/19/17 10:07 Dose: 25 mg Hydromorphone HCl (Dilaudid) 0.5 mg IVP Q4H PRN PRN Reason: Pain, Mild (1-3) Last Admin: 01/19/17 18:21 Dose: 0.5 mg Sodium Chloride (Sodium Chloride 0.9%) 1,000 mls @ 100 mls/hr IV .Q10H [facility] Last Admin: 01/19/17 14:00 Dose: 100 mls/hr Ceftriaxone Sodium (Rocephin 1 Gram Ivpb) 1 gm in 100 mls @ 100 mls/hr IVPB DAILY [facility] PRN Reason: Protocol Last Admin: 01/19/17 10:15 Dose: 100 mls/hr Gentamicin Sulfate/Sodium Chloride (Gentamicin 80mg/50ml Ns) 80 mg in 50 mls @ 100 mls/hr IVPB 1800 [facility] PRN Reason: Protocol Last Admin: 01/19/17 17:27 Dose: 100 mls/hr Levothyroxine Sodium (Synthroid) 250 mcg PO 0600 [facility] Last Admin: 01/19/17 05:49 Dose: 250 mcg Montelukast Sodium (Singulair) 10 mg PO HS [facility] Last Admin: 01/18/17 21:47 Dose: 10 mg Non-Formulary Medication (Fluticasone/Vilanterol [Breo Ellipta 200-25 Mcg Inh]) 1 each IH DAILY [facility] Last Admin: 01/19/17 10:09 Dose: Not Given Nortriptyline HCl (Pamelor) 25 mg PO TID [facility] Last Admin: 01/19/17 17:28 Dose: Not Given Phenazopyridine HCl (Pyridium) 200 mg PO PC [facility] Last Admin: 01/19/17 17:28 Dose: 200 mg Family Hx: none given ROS: No fevers, chills, nausea, vomiting, diarrhea, headaches, dizziness, chest pain , abdominal pain, melena, hematuria, hematemesis, hematochezia, depression, anxiety. Past Patient History - Infectious Disease Hx of Infectious Diseases: None - Tetanus Immunizations Tetanus Immunization: Up to Date - Past Medical History & Family History Past Medical History?: Yes - Past Social History Smoking Status: Former Smoker - CARDIAC Hx Hypertension: Yes - PULMONARY Hx Respiratory Disorders: Yes Hx Asthma: Yes Hx Bronchitis: Yes Other/Comment: acute sinusitis - NEUROLOGICAL Hx Paralysis: No - HEENT Hx HEENT Problems: Yes Other/Comment: DRY EYES - RENAL Hx Chronic Kidney Disease: Yes Hx Kidney Stones: Yes - ENDOCRINE/METABOLIC Hx Hypothyroidism: Yes - HEMATOLOGICAL/ONCOLOGICAL Hx Blood Transfusions: No Hx Blood Transfusion Reaction: No - INTEGUMENTARY Hx Dermatological Problems: No - MUSCULOSKELETAL/RHEUMATOLOGICAL Hx Arthritis: Yes - GASTROINTESTINAL Hx Gastrointestinal Disorders: (hx reflux/ulcer) - GENITOURINARY/GYNECOLOGICAL Hx Reproductive Disorders: No - PSYCHIATRIC Hx Emotional Abuse: No Hx Physical Abuse: No Hx Substance Use: No - SURGICAL HISTORY Hx Surgeries: Yes (Discectomy) - ANESTHESIA Hx Anesthesia Reactions: No Hx Malignant Hyperthermia: No Meds Allergies/Adverse Reactions: Allergies Allergy/AdvReac Type Severity Reaction Status Date / Time No Known Allergies Allergy Verified 01/17/17 08:24 - Medications Medications: Current Medications Albuterol Sulfate (Albuterol 0.083% Inhal Radha (2.5 Mg/3 Ml) Ud) 2.5 mg IH Q4 PRN PRN Reason: Wheezing Last Admin: 01/19/17 14:26 Dose: 2.5 mg Amlodipine Besylate (Norvasc) 10 mg PO DAILY [facility] Last Admin: 01/19/17 10:08 Dose: 10 mg Atorvastatin Calcium (Lipitor) 40 mg PO QPM [facility] Last Admin: 01/19/17 17:28 Dose: 40 mg Enoxaparin Sodium (Lovenox) 30 mg SC DAILY [facility] PRN Reason: Protocol Last Admin: 01/19/17 10:00 Dose: Not Given Famotidine (Pepcid) 40 mg PO HS [facility] Last Admin: 01/18/17 21:46 Dose: 40 mg Hydrochlorothiazide (Hydrodiuril) 25 mg PO DAILY [facility] Last Admin: 01/19/17 10:07 Dose: 25 mg Hydromorphone HCl (Dilaudid) 0.5 mg IVP Q4H PRN PRN Reason: Pain, Mild (1-3) Last Admin: 01/19/17 18:21 Dose: 0.5 mg Sodium Chloride (Sodium Chloride 0.9%) 1,000 mls @ 100 mls/hr IV .Q10H [facility] Last Admin: 01/19/17 14:00 Dose: 100 mls/hr Ceftriaxone Sodium (Rocephin 1 Gram Ivpb) 1 gm in 100 mls @ 100 mls/hr IVPB DAILY [facility] PRN Reason: Protocol Last Admin: 01/19/17 10:15 Dose: 100 mls/hr Gentamicin Sulfate/Sodium Chloride (Gentamicin 80mg/50ml Ns) 80 mg in 50 mls @ 100 mls/hr IVPB 1800 [facility] PRN Reason: Protocol Last Admin: 01/19/17 17:27 Dose: 100 mls/hr Levothyroxine Sodium (Synthroid) 250 mcg PO 0600 [facility] Last Admin: 01/19/17 05:49 Dose: 250 mcg Montelukast Sodium (Singulair) 10 mg PO HS [facility] Last Admin: 01/18/17 21:47 Dose: 10 mg Non-Formulary Medication (Fluticasone/Vilanterol [Breo Ellipta 200-25 Mcg Inh]) 1 each IH DAILY [facility] Last Admin: 01/19/17 10:09 Dose: Not Given Nortriptyline HCl (Pamelor) 25 mg PO TID [facility] Last Admin: 01/19/17 17:28 Dose: Not Given Phenazopyridine HCl (Pyridium) 200 mg PO PC [facility] Last Admin: 01/19/17 17:28 Dose: 200 mg Physical Exam - Constitutional Appears: Non-toxic, No Acute Distress, Chronically Ill - Head Exam Head Exam: ATRAUMATIC, NORMOCEPHALIC - Eye Exam Eye Exam: EOMI, PERRL Pupil Exam: NORMAL ACCOMODATION, PERRL - ENT Exam ENT Exam: Mucous Membranes Moist, Normal External Ear Exam, TM's Normal Bilaterally - Neck Exam Neck exam: Positive for: Full Rom, Normal Inspection - Respiratory Exam Respiratory Exam: Clear to Auscultation Bilateral, NORMAL BREATHING PATTERN. absent: Rales, Rhonchi - Cardiovascular Exam Cardiovascular Exam: REGULAR RHYTHM, RRR, +S1, +S2 - GI/Abdominal Exam GI & Abdominal Exam: Normal Bowel Sounds, Soft. absent: Distended, Tenderness Additional comments: Right flank tenderness. - Extremities Exam Extremities exam: Positive for: full ROM, normal inspection - Back Exam Back exam: FULL ROM, NORMAL INSPECTION - Neurological Exam Neurological exam: Alert, CN II-XII Intact, Oriented x3 - Psychiatric Exam Psychiatric exam: Normal Affect, Normal Mood - Skin Skin Exam: Intact, Normal Color Results - Vital Signs Recent Vital Signs: Last Vital Signs Temp 98.2 F 01/19/17 16:14 Pulse 79 01/19/17 16:14 Resp 18 01/19/17 16:14 BP 126/83 01/19/17 16:14 Pulse Ox 93 L 01/19/17 16:14 - Labs Result Diagrams: 01/19/17 06:00 01/19/17 06:00 Labs: Laboratory Results - last 24 hr 01/19/17 01/19/17 06:00 06:00 WBC 8.0 RBC 4.28 Hgb 12.5 Hct 38.7 MCV 90.4 MCH 29.2 MCHC 32.3 RDW 13.2 Plt Count 288 MPV 9.1 Sodium 138 Potassium 3.2 L Chloride 99 Carbon Dioxide 34 H Anion Gap 8 L BUN 15 Creatinine 0.7 Est GFR ( Amer) > 60 Est GFR (Non-Af Amer) > 60 Random Glucose 92 Calcium 8.9 Assessment & Plan - Assessment and Plan (Free Text) Assessment: 51 yo female with UTI with Proteus. Currently on Rocephin and Gentamicin for antibiotic coverage. Sent to TRCU for further care. Right flank pain is improving. Can utilize Rocephin alone without Gentamicin. Can repeat urine cultures in the morning as well. Thank you for allowing me to participate in the care of this patient, we will follow with you.
[2017-01-20] MEDS: Sodium Chloride 0.9% 1,000 ML IV SCH ×3 (00:54→20:36)
--- NOTE | 2017-01-20 02:51 | PN ---
DATE: SUBJECTIVE: The patient is 51-year-old female. The patient is seen and examined on the bedside, looking comfortable. As per the patient she still has pain in the flank area . No nausea, vomiting or diarrhea. No hematuria or hematochezia. No swelling of the legs. No chest pain or palpitation. No fever. No chills. PHYSICAL EXAMINATION: VITAL SIGNS: Temperature 98.2, pulse 79, blood pressure 126/82, respiratory rate 18 and oxygen saturation 93%. HEENT: Head is normocephalic and atraumatic. Eyes; PERRLA. Extraocular muscles are intact. Conjunctivae are clear. Nose is patent. Mucous membrane moist. NECK: Supple. No carotid bruits. No JVD or thyromegaly. CHEST: Bilaterally symmetrical. HEART: S1 and S2 positive. LUNGS: Clear to auscultation. ABDOMEN: Soft. Bowel sounds present. No organomegaly. EXTREMITIES: No edema. No cyanosis. NEUROLOGIC: The patient is awake and alert. Moving all 4 extremities. No focal deficits. MEDICATIONS: Albuterol, Dilaudid, hydrochlorothiazide, Lovenox, Lipitor, Norvasc, nortriptyline, Pepcid, Pyridium, ceftriaxone, Singulair, and Synthroid. LABORATORY DATA: White blood cells 8.0, hemoglobin 12.5, hematocrit 38.7, and platelets 288. Sodium 138, potassium 3.2, BUN 15, creatinine 0.7 and glucose 138. ASSESSMENT AND PLAN: Ms. Vidhya Bradford is a 51-year-old lady with anemia, hyperglycemia, had multiple medical problems, asthma, bronchitis, renal disease, nephrolithiasis, hypothyroidism, peptic ulcer disease, spinal stenosis, anxiety, depression, fibromyalgia, degenerative joint disease, hypertension, history of hysterectomy, kidney stents, now at this time is admitted for nephrolithiasis, stent was put by Dr. Cagle and removed, but still the patient has pain. Hematuria is getting better. Continue Rocephin and gentamicin for antibiotic coverage. Getting antibiotics in Transitional Care Unit. Right flank pain is improving. We will repeat urine cultures in the morning to decide the duration of the antibiotics. Meanwhile, continue present treatment. Appreciate the Dr. Sarah's input, awaiting for Dr. Cagle's input. Linda Raman MD MTDSusan
--- NOTE | 2017-01-20 02:52 | PN ---
DATE: 01/19/2017 PULMONARY PROGRESS NOTE REFERRING PHYSICIAN: Linda Raman MD SUBJECTIVE: She is lying in the bed at 45 degrees, feels better. No headache. No rhinitis. Cough is better. No shortness of breath. No chest pain. Abdominal pain is better. No dysuria. No leg pain or leg swelling. OBJECTIVE: GENERAL: In no acute distress. VITAL SIGNS: Temperature is 98, heart rate is 79, respiratory rate is 18, blood pressure is 126/83, pulse ox 93% on room air. HEENT: Moist mucous membrane. Crowded airway. Mallampati score is 4. NECK: Supple. No JVD. LUNGS: Has a fair airflow with few rhonchi. HEART: S1 and S2. ABDOMEN: Soft and nontender. No organomegaly. EXTREMITIES: No edema. NEUROLOGIC: Awake and alert. Follows simple commands. MEDICATIONS: She is on albuterol/Atrovent nebulizer q. 4 hours p.r.n., Dilaudid 0.5 mg q. 4 hours p.r.n., hydrochlorothiazide 25 mg daily, Lipitor 40 mg daily, Pepcid 20 mg daily, Pyridium 200 mg p.o. p.c., Rocephin 1 g daily, Singulair 10 mg daily, IV fluid normal saline 100 mL per hour, Synthroid 250 mcg daily. LABORATORY DATA: Shows hemoglobin 12.5, hematocrit 38.7, WBC 8.0, platelets is 288. Sodium 138, potassium 3.2, chloride 99, bicarbonate 34, BUN 15, creatinine 0.7, glucose 138, calcium is 8.9. IMPRESSION AND PLAN: Chronic obstructive lung disease, chronic sinusitis, may have sleep apnea syndrome, nephrolithiasis, urinary tract infection and hypothyroid. Pulmonary point of view, she is doing okay. Continue bronchodilator. Antibiotics as per Infectious Disease. Encouraged p.o. intake. Recommended outpatient sleep study and pulmonary function test. Thank you and we will follow with you. Karmen Harrison MD
[2017-01-20] MEDS: HYDROmorphone 0.5 mg/0.5 ml ISec IVP PRN ×6 (02:59→23:09)
[2017-01-20] MEDS: Levothyroxine 125 MCG TAB PO SCH (05:30)
[2017-01-20] MEDS: Albuterol 0.083% Inhal Sol (2.5 mg/3 mL) UD IH PRN ×3 (07:57→22:05)
[2017-01-20] MEDS: Enoxaparin 30 mg Syringe SC SCH ×2 (10:51→11:04)
[2017-01-20] MEDS: cefTRIAXone 1 gm 1 GM/100 ML BAG IVPB SCH (10:52)
--- NOTE | 2017-01-20 18:37 | CP.PCM.PN ---
Subjective - Date & Time of Evaluation Date of Evaluation: 01/20/17 Time of Evaluation: 17:00 - Subjective Subjective: Infectious Disease Follow Up: January 20, 2017 51 yo female who presented with abdominal pain on 01/13/2017. In addition, the patient complains of burning on urination. Urine cultures showing Proteus growth that was sensitive to multiple antibiotics. Supportive care. Was on Ceftriaxone and Gentamicin for antibiotic coverage. Now on Ceftriaxone alone. No new issues. She appears comfortable. Objective - Vital Signs/Intake and Output Vital Signs (last 24 hours): Temp Pulse Resp BP Pulse Ox 98 F 72 18 127/90 95 01/20/17 16:00 01/20/17 16:00 01/20/17 16:00 01/20/17 16:00 01/20/17 16:00 Intake and Output: 01/20/17 01/20/17 06:59 18:59 Intake Total 480 Balance 480 - Medications Medications: Current Medications Albuterol Sulfate (Albuterol 0.083% Inhal Radha (2.5 Mg/3 Ml) Ud) 2.5 mg IH Q4 PRN PRN Reason: Wheezing Last Admin: 01/20/17 13:34 Dose: 2.5 mg Amlodipine Besylate (Norvasc) 10 mg PO DAILY [facility] Last Admin: 01/20/17 10:52 Dose: 10 mg Atorvastatin Calcium (Lipitor) 40 mg PO QPM [facility] [place] Last Admin: 01/20/17 17:27 Dose: 40 mg Enoxaparin Sodium (Lovenox) 30 mg SC DAILY [facility] PRN Reason: Protocol Last Admin: 01/20/17 11:04 Dose: Not Given Famotidine (Pepcid) 40 mg PO HS [facility] [place] Last Admin: 01/19/17 22:20 Dose: 40 mg Hydrochlorothiazide (Hydrodiuril) 25 mg PO DAILY [facility] [place] Last Admin: 01/20/17 10:51 Dose: 25 mg Hydromorphone HCl (Dilaudid) 0.5 mg IVP Q4H PRN PRN Reason: Pain, Mild (1-3) Last Admin: 01/20/17 15:08 Dose: 0.5 mg Sodium Chloride (Sodium Chloride 0.9%) 1,000 mls @ 100 mls/hr IV .Q10H [facility] [place] Last Admin: 01/20/17 10:49 Dose: 100 mls/hr Ceftriaxone Sodium (Rocephin 1 Gram Ivpb) 1 gm in 100 mls @ 100 mls/hr IVPB DAILY [facility] [place] PRN Reason: Protocol Last Admin: 01/20/17 10:52 Dose: 100 mls/hr Levothyroxine Sodium (Synthroid) 250 mcg PO 0600 [facility] [place] Last Admin: 01/20/17 05:30 Dose: 250 mcg Montelukast Sodium (Singulair) 10 mg PO HS [facility] [place] Last Admin: 01/19/17 22:20 Dose: 10 mg Non-Formulary Medication (Fluticasone/Vilanterol [Breo Ellipta 200-25 Mcg Inh]) 1 each IH DAILY [facility] [place] Last Admin: 01/19/17 10:09 Dose: Not Given Nortriptyline HCl (Pamelor) 25 mg PO TID [facility] [place] Last Admin: 01/20/17 17:27 Dose: Not Given Phenazopyridine HCl (Pyridium) 200 mg PO PC [facility] [place] Last Admin: 01/20/17 17:27 Dose: 200 mg - Labs Labs: 01/19/17 06:00 01/19/17 06:00 - Constitutional Appears: Non-toxic, No Acute Distress, Chronically Ill - Head Exam Head Exam: ATRAUMATIC, NORMOCEPHALIC - Eye Exam Eye Exam: EOMI, PERRL Pupil Exam: NORMAL ACCOMODATION, PERRL - ENT Exam ENT Exam: Mucous Membranes Moist, Normal External Ear Exam, TM's Normal Bilaterally - Neck Exam Neck Exam: Full ROM, Normal Inspection - Respiratory Exam Respiratory Exam: Clear to Ausculation Bilateral, NORMAL BREATHING PATTERN. absent: Rales, Rhonchi, Wheezes - Cardiovascular Exam Cardiovascular Exam: REGULAR RHYTHM, RRR, +S1, +S2 - GI/Abdominal Exam GI & Abdominal Exam: Soft, Normal Bowel Sounds. absent: Distended, Tenderness - Extremities Exam Extremities Exam: Full ROM, Normal Inspection - Neurological Exam Neurological Exam: Alert, Awake, CN II-XII Intact, Oriented x3 - Psychiatric Exam Psychiatric exam: Normal Affect, Normal Mood - Skin Skin Exam: Intact, Normal Color Assessment and Plan - Assessment and Plan (Free Text) Assessment: 51 yo female with UTI with Proteus. Currently on Rocephin and Gentamicin for antibiotic coverage. Sent to [facility] for further care. Right flank pain is improving. Continue on Rocephin alone. Can repeat urine cultures in the morning. Supportive care. Consider total of 7-10 days of treatment. Thank you for allowing me to participate in the care of this patient, we will follow with you.
--- NOTE | 2017-01-21 00:19 | PN ---
DATE: 01/20/2017 PULMONARY PROGRESS NOTE REFERRING PHYSICIAN: Dr. Raman. SUBJECTIVE: The patient is lying in the bed, head at 45 degrees. Night was unremarkable. Doing well in therapy. No headache. No rhinitis. No cough. No nausea. No vomiting. No diarrhea. No leg pain or leg swelling. OBJECTIVE: GENERAL: In no acute distress. VITAL SIGNS: Temperature is 98, heart rate is 72, respiratory rate is 18, blood pressure is 127/90, pulse ox 95% on room air. HEENT: Moist mucous membrane. Crowded airway. NECK: Supple. No JVD. LUNGS: Have a fair airflow with few rhonchi. HEART: S1 and S2. ABDOMEN: Soft and nontender. No organomegaly. EXTREMITIES: No edema. NEUROLOGIC: Awake and alert. Follows simple commands. MEDICATIONS: She is on albuterol/Atrovent nebulizer q. 4 hours p.r.n., Dilaudid 0.5 mg q. 4 hours p.r.n., Breo Ellipta one puff daily, hydrochlorothiazide 25 mg daily, Lipitor 40 mg daily, Lovenox 30 mg daily, Norvasc 10 mg daily, nortriptyline 25 mg three times a day, Pepcid 40 mg daily, Pyridium 200 mg, Rocephin 1 g IV daily, Singulair 10 mg daily, IV fluid normal saline 100 mL per hour, Synthroid 250 mcg daily. LABORATORY DATA: Reviewed and noted. No new changes in medication reported since yesterday. IMPRESSION AND PLAN: Chronic obstructive lung disease, chronic sinusitis, may have sleep apnea syndrome, nephrolithiasis, urinary tract infection, and hypothyroid. Pulmonary point of view, doing okay. Continue inhaled bronchodilator. Keep head at 45 degrees. Sleep apnea precaution. Gastric prophylaxis. Antibiotics. Urology followup. Thank you and we will follow with you. Karmen Harrison MD
[2017-01-21] MEDS: HYDROmorphone 0.5 mg/0.5 ml ISec IVP PRN ×5 (03:14→21:31)
--- NOTE | 2017-01-21 05:42 | PN ---
DATE: SUBJECTIVE: The patient is 51 years old female. The patient is seen and examined at the bedside. Looking comfortable. Pain is getting better, but very slowly. No nausea, vomiting, or diarrhea. No hematuria or hematochezia. No swelling of the legs. No chest pain. No palpitation. No fever. No chills. PHYSICAL EXAMINATION: VITAL SIGNS: Temperature 98, pulse 72, blood pressure 127/90, and respiratory rate 18. HEENT: Head; normocephalic and atraumatic. Eyes; PERRLA. Extraocular muscles are intact. Conjunctivae are clear. Nose patent. NECK: Supple. No carotid bruits, JVD, or thyromegaly. CHEST: Bilaterally symmetrical. HEART: S1 and S2 positive. LUNGS: Clear to auscultation. ABDOMEN: Soft. Bowel sounds present. No organomegaly. EXTREMITIES: No edema. No cyanosis. NEUROLOGIC: The patient is awake and alert. Moving all 4 extremities. No focal deficit. MEDICATIONS: Albuterol, Dilaudid, hydrochlorothiazide, Lipitor, Lovenox, Norvasc, nortriptyline, Pepcid, Pyridium, NS, and Synthroid. LABORATORY DATA: We do not have recent labs today, but I reviewed old labs. ASSESSMENT AND PLAN: Ms. Vidhya Bradford is a 51 years old lady with hypokalemia, hyperglycemia, nephrolithiasis, hydronephrosis, status post ureteral stent, and seen by Dr. Sarah, Infectious Disease. The patient has urinary tract infection with Proteus. Continue Rocephin and gentamicin for antibiotic coverage. Right flank pain is improving, but not recovered yet. Continue Rocephin alone as per Infectious Disease. Repeat urine culture need supportive care. Continue 7 to 10 days of treatment. Gastrointestinal and deep venous thrombosis prophylaxis. Repeat labs. We will follow. Linda Raman MD MTDD
[2017-01-21] MEDS: Sodium Chloride 0.9% 1,000 ML IV SCH ×3 (05:50→20:03)
[2017-01-21] MEDS: Levothyroxine 125 MCG TAB PO SCH (05:50)
[2017-01-21] MEDS: Albuterol 0.083% Inhal Sol (2.5 mg/3 mL) UD IH PRN ×3 (07:28→19:23)
[2017-01-21] MEDS: cefTRIAXone 1 gm 1 GM/100 ML BAG IVPB SCH (10:34)
[2017-01-21] MEDS: Non Formulary Medication (Fluticasone/Vilanterol [Breo Ellipta 200-25 Mcg Inh] 1 EACH) IH SCH (10:34)
[2017-01-21] MEDS: Enoxaparin 30 mg Syringe SC SCH (10:44)
--- NOTE | 2017-01-21 15:32 | CP.PCM.PN ---
Subjective - Date & Time of Evaluation Date of Evaluation: 01/21/17 Time of Evaluation: 11:00 - Subjective Subjective: Infectious Disease Follow Up: January 21, 2017 51 yo female who presented with abdominal pain on 01/13/2017. In addition, the patient complains of burning on urination. Urine cultures showing Proteus growth that was sensitive to multiple antibiotics. Supportive care. Was on Ceftriaxone and Gentamicin for antibiotic coverage. Now on Ceftriaxone alone. No new issues. She appears comfortable. No additional complaints. Objective - Vital Signs/Intake and Output Vital Signs (last 24 hours): Temp Pulse Resp BP Pulse Ox 97.6 F 70 18 142/96 H 96 01/21/17 06:00 01/21/17 06:00 01/21/17 06:00 01/21/17 10:43 01/21/17 06:00 Intake and Output: 01/21/17 01/21/17 06:59 18:59 Intake Total 550 Balance 550 - Medications Medications: Current Medications Albuterol Sulfate (Albuterol 0.083% Inhal Radha (2.5 Mg/3 Ml) Ud) 2.5 mg IH Q4 PRN PRN Reason: Wheezing Last Admin: 01/21/17 13:43 Dose: 2.5 mg Amlodipine Besylate (Norvasc) 10 mg PO DAILY [facility] Last Admin: 01/21/17 10:43 Dose: 10 mg Atorvastatin Calcium (Lipitor) 40 mg PO QPM [facility] Last Admin: 01/20/17 17:27 Dose: 40 mg Enoxaparin Sodium (Lovenox) 30 mg SC DAILY [facility] PRN Reason: Protocol Last Admin: 01/21/17 10:44 Dose: Not Given Famotidine (Pepcid) 40 mg PO HS [facility] Last Admin: 01/20/17 21:36 Dose: 40 mg Hydrochlorothiazide (Hydrodiuril) 25 mg PO DAILY [facility] Last Admin: 01/21/17 10:35 Dose: 25 mg Hydromorphone HCl (Dilaudid) 0.5 mg IVP Q4H PRN PRN Reason: Pain, Mild (1-3) Last Admin: 01/21/17 13:02 Dose: 0.5 mg Sodium Chloride (Sodium Chloride 0.9%) 1,000 mls @ 100 mls/hr IV .Q10H [facility] Last Admin: 01/21/17 05:50 Dose: 100 mls/hr Ceftriaxone Sodium (Rocephin 1 Gram Ivpb) 1 gm in 100 mls @ 100 mls/hr IVPB DAILY [facility] PRN Reason: Protocol Last Admin: 01/21/17 10:34 Dose: 100 mls/hr Levothyroxine Sodium (Synthroid) 250 mcg PO 0600 [facility] Last Admin: 01/21/17 05:50 Dose: 250 mcg Montelukast Sodium (Singulair) 10 mg PO HS [facility] Last Admin: 01/20/17 21:36 Dose: 10 mg Non-Formulary Medication (Fluticasone/Vilanterol [Breo Ellipta 200-25 Mcg Inh]) 1 each IH DAILY [facility] Last Admin: 01/21/17 10:34 Dose: Not Given Nortriptyline HCl (Pamelor) 25 mg PO TID [facility] Last Admin: 01/21/17 13:03 Dose: Not Given Phenazopyridine HCl (Pyridium) 200 mg PO PC [facility] Last Admin: 01/21/17 13:04 Dose: 200 mg - Labs Labs: 01/19/17 06:00 01/19/17 06:00 - Constitutional Appears: Non-toxic, No Acute Distress, Chronically Ill - Head Exam Head Exam: ATRAUMATIC, NORMOCEPHALIC - Eye Exam Eye Exam: EOMI, PERRL Pupil Exam: NORMAL ACCOMODATION, PERRL - ENT Exam ENT Exam: Mucous Membranes Moist, Normal External Ear Exam, TM's Normal Bilaterally - Neck Exam Neck Exam: Full ROM, Normal Inspection - Respiratory Exam Respiratory Exam: Clear to Ausculation Bilateral, NORMAL BREATHING PATTERN. absent: Rales, Rhonchi, Wheezes - Cardiovascular Exam Cardiovascular Exam: REGULAR RHYTHM, RRR, +S1, +S2 - GI/Abdominal Exam GI & Abdominal Exam: Soft, Tenderness, Normal Bowel Sounds. absent: Distended - Extremities Exam Extremities Exam: Full ROM, Normal Inspection - Neurological Exam Neurological Exam: Alert, Awake, CN II-XII Intact, Oriented x3 - Psychiatric Exam Psychiatric exam: Normal Affect, Normal Mood Assessment and Plan - Assessment and Plan (Free Text) Assessment: 51 yo female with UTI with Proteus. Currently on Rocephin and Gentamicin for antibiotic coverage. Sent to [facility] for further care. Right flank pain is improving. Continue on Rocephin alone. Can repeat urine cultures in the morning. Supportive care. Consider total of 7-10 days of treatment. Thank you for allowing me to participate in the care of this patient, we will follow with you.
--- NOTE | 2017-01-21 23:13 | PN ---
DATE: SUBJECTIVE: The patient is a 51-year-old female. The patient was seen and examined at the bedside. Looking comfortable. Still having pain, but is better. Still having burning on urination. No nausea or vomiting. Was on ceftriaxone and gentamicin for antibiotics coverage. Now on ceftriaxone alone. No new issues. No fever. No chills. Waiting for urologist's input. PHYSICAL EXAMINATION: VITAL SIGNS: Temperature 97.6, pulse 70, respiratory rate 18, blood pressure 142/96, and pulse oximetry 96%. HEENT: Head is normocephalic and atraumatic. Eyes, PERRLA. Extraocular muscles intact. Conjunctivae clear. Nose patent. NECK: Supple. No carotid bruits, JVD or thyromegaly. CHEST: Bilaterally symmetrical. HEART: S1 and S2 positive. LUNGS: Clear to auscultation. ABDOMEN: Soft. Bowel sounds present. No organomegaly. EXTREMITIES: No edema. No cyanosis. NEUROLOGICAL: The patient is awake and alert. Moving all 4 extremities. No focal deficits. MEDICATIONS: Albuterol, amlodipine, atorvastatin, Lovenox, famotidine, hydrochlorothiazide, Dilaudid, NS, ceftriaxone, levothyroxine, Singulair and nortriptyline. LABORATORY DATA: We do not have recent lab today, but reviewed old labs. ASSESSMENT AND PLAN: Ms. Vidhya Bradford is a 51-year-old lady with urinary tract infection with proteus, currently on Rocephin and gentamicin for antibiotic coverage. Got treatment on the medical floor, now transferred to TCU for continuity of care and completion of the antibiotics. Flank pain is improving, but still there. Plan is to continue Rocephin and the patient is still getting IV fluid. Supportive care. Gastrointestinal and deep venous thrombosis prophylaxis. Repeat labs. We will follow up. Linda Raman MD
--- NOTE | 2017-01-21 23:42 | PN ---
DATE: 01/21/2017 PULMONARY PROGRESS NOTE REFERRING PHYSICIAN: Linda Raman MD SUBJECTIVE: She is lying in the bed, head at 45 degrees. Night was unremarkable. Doing well in therapy. No headache. No rhinitis. No cough. No nausea. No vomiting. Still have a mild abdominal pain. No leg pain or leg swelling. OBJECTIVE: GENERAL: In no acute distress. VITAL SIGNS: Temperature 98, heart rare is 90, respiratory rate is 20, blood pressure 129/95, pulse ox 93% on room air. HEENT: Moist mucous membrane. Crowded airway. NECK: Supple. No JVD. LUNGS: Have a fair airflow with few rhonchi. HEART: S1 and S2. ABDOMEN: Soft and nontender. No organomegaly. EXTREMITIES: No edema. NEUROLOGICAL: Awake and alert. Follows simple commands. MEDICATIONS: She is on albuterol/Atrovent nebulizer q. 4 hours p.r.n., Dilaudid 0.5 mg q. 4 hours p.r.n., also on Breo Ellipta 1 puff daily, hydrochlorothiazide 25 mg daily, Lipitor 40 mg daily, Norvasc 10 mg daily, nortriptyline 25 mg 3 times a day, Pepcid 40 mg daily, Pyridium 200 mg p.c., Rocephin 1 g IV daily, Singulair 10 mg daily, Synthroid 250 mg daily. LABORATORY DATA: Reviewed and no new lab is available since yesterday. IMPRESSION AND PLAN: Chronic obstructive lung disease, chronic sinusitis, sleep apnea syndrome, nephrolithiasis, urinary tract infection, hypothyroid, status post cystoscopy and extraction of renal stone, still has some mild abdominal pain. Pulmonary point of view, doing okay. Continue bronchodilator. Keep head at 45 degrees. Gastric and DVT prophylaxis. Fall precaution. Urology followup. Thank you and we will follow with you. Karmen Harrison MD
[2017-01-22] MEDS: HYDROmorphone 0.5 mg/0.5 ml ISec IVP PRN ×6 (02:38→23:52)
[2017-01-22] MEDS: Levothyroxine 125 MCG TAB PO SCH (05:42)
[2017-01-22] MEDS: Albuterol 0.083% Inhal Sol (2.5 mg/3 mL) UD IH PRN ×3 (07:21→20:18)
[2017-01-22] MEDS: Sodium Chloride 0.9% 1,000 ML IV SCH (07:57)
[2017-01-22] MEDS: Non Formulary Medication (Fluticasone/Vilanterol [Breo Ellipta 200-25 Mcg Inh] 1 EACH) IH SCH (10:59)
[2017-01-22] MEDS ORDERED: Sodium Chloride 0.9% 1,000 ML IV SCH (11:40)
--- NOTE | 2017-01-22 15:53 | CP.PCM.PN ---
Subjective - Date & Time of Evaluation Date of Evaluation: 01/22/17 Time of Evaluation: 11:00 - Subjective Subjective: Infectious Disease Follow Up: January 22, 2017 51 yo female who presented with abdominal pain on 01/13/2017. In addition, the patient complains of burning on urination. Urine cultures showing Proteus growth that was sensitive to multiple antibiotics. Supportive care. Was on Ceftriaxone and Gentamicin for antibiotic coverage. Now on Ceftriaxone alone. No new issues. She appears comfortable. No additional complaints. Objective - Vital Signs/Intake and Output Vital Signs (last 24 hours): Temp Pulse Resp BP Pulse Ox 98 F 90 18 134/85 93 L 01/21/17 17:18 01/21/17 17:18 01/21/17 17:18 01/22/17 11:00 01/21/17 17:18 - Medications Medications: Current Medications Albuterol Sulfate (Albuterol 0.083% Inhal Radha (2.5 Mg/3 Ml) Ud) 2.5 mg IH Q4 PRN PRN Reason: Wheezing Last Admin: 01/22/17 10:56 Dose: 2.5 mg Amlodipine Besylate (Norvasc) 10 mg PO DAILY [facility] Last Admin: 01/22/17 11:00 Dose: 10 mg Atorvastatin Calcium (Lipitor) 40 mg PO QPM [facility] Last Admin: 01/21/17 17:26 Dose: 40 mg Famotidine (Pepcid) 40 mg PO HS [facility] Last Admin: 01/21/17 21:32 Dose: 40 mg Hydrochlorothiazide (Hydrodiuril) 25 mg PO DAILY [facility] Last Admin: 01/22/17 11:00 Dose: 25 mg Hydromorphone HCl (Dilaudid) 0.5 mg IVP Q4H PRN PRN Reason: Pain, Mild (1-3) Last Admin: 01/22/17 11:01 Dose: 0.5 mg Ceftriaxone Sodium (Rocephin 1 Gram Ivpb) 1 gm in 100 mls @ 100 mls/hr IVPB 2200 [facility] PRN Reason: Protocol Sodium Chloride (Sodium Chloride 0.9%) 1,000 mls @ 50 mls/hr IV .Q20H [facility] Last Admin: 01/22/17 11:53 Dose: 50 mls/hr Levothyroxine Sodium (Synthroid) 250 mcg PO 0600 [facility] Last Admin: 01/22/17 05:42 Dose: 250 mcg Montelukast Sodium (Singulair) 10 mg PO HS [facility] Last Admin: 01/21/17 21:31 Dose: 10 mg Non-Formulary Medication (Fluticasone/Vilanterol [Breo Ellipta 200-25 Mcg Inh]) 1 each IH DAILY [facility] Last Admin: 01/22/17 10:59 Dose: Not Given Phenazopyridine HCl (Pyridium) 200 mg PO PC [facility] Last Admin: 01/22/17 13:45 Dose: 200 mg - Labs Labs: 01/19/17 06:00 01/19/17 06:00 - Constitutional Appears: Non-toxic, No Acute Distress, Chronically Ill - Head Exam Head Exam: ATRAUMATIC, NORMOCEPHALIC - Eye Exam Eye Exam: EOMI, PERRL Pupil Exam: NORMAL ACCOMODATION, PERRL - ENT Exam ENT Exam: Mucous Membranes Moist, Normal External Ear Exam, TM's Normal Bilaterally - Neck Exam Neck Exam: Full ROM, Normal Inspection - Respiratory Exam Respiratory Exam: Clear to Ausculation Bilateral, NORMAL BREATHING PATTERN. absent: Rales, Rhonchi, Wheezes - Cardiovascular Exam Cardiovascular Exam: REGULAR RHYTHM, RRR, +S1, +S2 - GI/Abdominal Exam GI & Abdominal Exam: Soft, Normal Bowel Sounds. absent: Distended, Tenderness - Extremities Exam Extremities Exam: Full ROM, Normal Inspection - Neurological Exam Neurological Exam: Alert, Awake, CN II-XII Intact, Oriented x3 - Psychiatric Exam Psychiatric exam: Normal Affect, Normal Mood - Skin Skin Exam: Intact, Normal Color Assessment and Plan - Assessment and Plan (Free Text) Assessment: 51 yo female with UTI with Proteus. Currently on Rocephin and Gentamicin for antibiotic coverage. Sent to [facility] for further care. Right flank pain is improving. Continue on Rocephin alone. Repeat urine culture was negative. Supportive care. Consider total of 7-10 days of treatment. On day 6 of Ceftriaxone treatment today. Can complete after Rocephin doses tomorrow. Spoke with Dr. Raman regarding case. No new complaints. Thank you for allowing me to participate in the care of this patient, we will follow with you.
[2017-01-22] MEDS ORDERED: cefTRIAXone 1 gm 1 GM/100 ML BAG IVPB SCH (22:00)
--- NOTE | 2017-01-23 01:20 | PN ---
DATE: SUBJECTIVE: The patient is a 51-year-old female. The patient was seen and examined on the bedside, looking comfortable. Urine culture shows Proteus growth that was sensitive to multiple antibiotics, complaining of burning on urination and was taking ceftriaxone and gentamicin, now on ceftriaxone alone. She feels comfortable. No nausea, vomiting, or diarrhea. No hematuria or hematochezia. No headache or dizziness. No fever. No chills. PHYSICAL EXAMINATION: VITAL SIGNS: Temperature 98, pulse 90, respiratory rate 18, blood pressure 134/85, and pulse oximetry 93. HEENT: Head is normocephalic and atraumatic. Eyes; PERRLA. Extraocular muscles are intact. Conjunctivae are clear. Nose is patent. NECK: Supple. No carotid bruits. No JVD or thyromegaly. CHEST: Bilaterally symmetrical. HEART: S1 and S2 positive. LUNGS: Clear to auscultation. ABDOMEN: Soft. Bowel sounds present. No organomegaly. EXTREMITIES: No edema. No cyanosis. NEUROLOGIC: The patient is awake and alert. Moving all 4 extremities. No focal deficits. MEDICATIONS: Albuterol, Norvasc, Lipitor, Pepcid, hydrochlorothiazide, hydromorphone, Rocephin, NS, and levothyroxine. LABORATORY DATA: We do not have recent lab today, but I reviewed old labs. ASSESSMENT AND PLAN: Ms. Vidhya Bradford is a 51-year-old lady with history of hypothyroidism, chronic obstructive pulmonary disease, asthma, and has urinary tract infection with Proteus, currently on Rocephin and gentamicin for antibiotic coverage. Right flank plain is improving. According to Dr. Sarah, Infectious Disease, continue Rocephin alone. Repeat urine culture was negative. Continue 7 to 10 days of treatment. Today is on day 6 of ceftriaxone and for treatment, can complete after Rocephin dose tomorrow. Discussion done with Dr. Sarah. Treatment plan made. The patient was seen by Dr. Cagle, had ureteral stent put, removed. Hematuria is better. We will follow up. Linda Raman MD
[2017-01-23] MEDS: Levothyroxine 125 MCG TAB PO SCH (05:06)
[2017-01-23] MEDS: HYDROmorphone 0.5 mg/0.5 ml ISec IVP PRN ×2 (06:46→14:03)
[2017-01-23 07:12] LABS: HEMATOCRIT 40.5 % (36.0-48.0); MEAN CORPUSCULAR HEMOGLOBIN 29.3 pg (25.0-35.0); MEAN CORPUSCULAR HGB CONC 32.6 g/dl (31.0-37.0); MEAN PLATELET VOLUME 8.9 fl (7.0-11.0); RED CELL DISTRIBUTION WIDTH 13.1 % (11.5-14.5); WHITE BLOOD COUNT 7.6 10^3/ul (4.5-11.0)
[2017-01-23] MEDS: Albuterol 0.083% Inhal Sol (2.5 mg/3 mL) UD IH PRN ×2 (07:23→11:04)
[2017-01-23 07:24] LABS: BLOOD UREA NITROGEN 18 mg/dL (7-21); CALCIUM 9.2 mg/dL (8.4-10.5); CARBON DIOXIDE 35 mmol/L (21-33); CHLORIDE 101 mmol/L (98-107); GFR AFRICAN-AMERICAN > 60; GLUCOSE,RANDOM 99 mg/dL (70-110); POTASSIUM 3.1 mmol/L (3.6-5.0); SODIUM 140 mmol/L (132-148)
[2017-01-23] MEDS: Non Formulary Medication (Fluticasone/Vilanterol [Breo Ellipta 200-25 Mcg Inh] 1 EACH) IH SCH (11:00)
[2017-01-23 11:15] VITALS: BP 114/80
--- NOTE | 2017-01-23 12:15 | CP.PCM.PN ---
Subjective - Date & Time of Evaluation Date of Evaluation: 01/23/17 Time of Evaluation: 11:30 - Subjective Subjective: Infectious Disease Follow Up: January 23, 2017 51 yo female who presented with abdominal pain on 01/13/2017. In addition, the patient complains of burning on urination. Urine cultures showing Proteus growth that was sensitive to multiple antibiotics. Supportive care. Was on Ceftriaxone and Gentamicin for antibiotic coverage. Now on Ceftriaxone alone. No new issues. She appears comfortable. No additional complaints. Decreased hematuria. Objective - Vital Signs/Intake and Output Vital Signs (last 24 hours): Temp Pulse Resp BP Pulse Ox 98.1 F 81 18 114/80 93 L 01/22/17 16:00 01/22/17 16:00 01/22/17 16:00 01/23/17 11:01 01/22/17 16:00 Intake and Output: 01/23/17 01/23/17 06:59 18:59 Intake Total 540 Balance 540 - Medications Medications: Current Medications Albuterol Sulfate (Albuterol 0.083% Inhal Radha (2.5 Mg/3 Ml) Ud) 2.5 mg IH Q4 PRN PRN Reason: Wheezing Last Admin: 01/23/17 11:04 Dose: 2.5 mg Amlodipine Besylate (Norvasc) 10 mg PO DAILY [facility] Last Admin: 01/23/17 11:01 Dose: 10 mg Atorvastatin Calcium (Lipitor) 40 mg PO QPM [facility] Last Admin: 01/22/17 17:11 Dose: 40 mg Famotidine (Pepcid) 40 mg PO HS [facility] Last Admin: 01/22/17 21:33 Dose: 40 mg Hydrochlorothiazide (Hydrodiuril) 25 mg PO DAILY [facility] Last Admin: 01/23/17 11:01 Dose: 25 mg Hydromorphone HCl (Dilaudid) 0.25 mg IVP Q6H PRN PRN Reason: Pain, Mild (1-3) Last Admin: 01/23/17 06:46 Dose: 0.25 mg Ceftriaxone Sodium (Rocephin 1 Gram Ivpb) 1 gm in 100 mls @ 100 mls/hr IVPB 2200 [facility] PRN Reason: Protocol Last Admin: 01/22/17 21:33 Dose: 100 mls/hr Levothyroxine Sodium (Synthroid) 250 mcg PO 0600 [facility] Last Admin: 01/23/17 05:06 Dose: 250 mcg Montelukast Sodium (Singulair) 10 mg PO HS [facility] Last Admin: 01/22/17 21:33 Dose: 10 mg Non-Formulary Medication (Fluticasone/Vilanterol [Breo Ellipta 200-25 Mcg Inh]) 1 each IH DAILY [facility] Last Admin: 01/23/17 11:00 Dose: Not Given - Labs Labs: 01/23/17 06:30 01/23/17 06:30 - Constitutional Appears: Non-toxic, No Acute Distress, Chronically Ill - Head Exam Head Exam: ATRAUMATIC, NORMOCEPHALIC - Eye Exam Eye Exam: EOMI, PERRL Pupil Exam: NORMAL ACCOMODATION, PERRL - ENT Exam ENT Exam: Mucous Membranes Moist, Normal External Ear Exam, TM's Normal Bilaterally - Neck Exam Neck Exam: Full ROM, Normal Inspection - Respiratory Exam Respiratory Exam: Clear to Ausculation Bilateral, NORMAL BREATHING PATTERN. absent: Rales, Rhonchi, Wheezes - Cardiovascular Exam Cardiovascular Exam: REGULAR RHYTHM, RRR, +S1, +S2 - GI/Abdominal Exam GI & Abdominal Exam: Soft, Normal Bowel Sounds. absent: Distended, Tenderness - Extremities Exam Extremities Exam: Full ROM, Normal Inspection - Neurological Exam Neurological Exam: Alert, Awake, CN II-XII Intact, Oriented x3 - Psychiatric Exam Psychiatric exam: Normal Affect, Normal Mood - Skin Skin Exam: Intact, Normal Color Assessment and Plan - Assessment and Plan (Free Text) Assessment: 51 yo female with UTI with Proteus. Currently on Rocephin and Gentamicin for antibiotic coverage. Sent to [facility] for further care. Right flank pain is improving. Continue on Rocephin alone. Repeat urine culture was negative. Supportive care. Consider total of 7-10 days of treatment. On day 7 of Ceftriaxone treatment today. Can complete after Rocephin doses today. Spoke with Dr. Raman regarding case. No new complaints. Thank you for allowing me to participate in the care of this patient, we will follow with you.
[2017-01-23 12:20] VITALS: PULSE 87; RESP 16; TEMP 98; O2SAT 100
--- NOTE | 2017-01-23 12:23 | PN ---
DATE: 01/22/2017 PULMONARY PROGRESS NOTE REFERRING PHYSICIAN: Linda Raman MD SUBJECTIVE: The patient is lying in the bed. Night was unremarkable. Doing well in therapy. No headache, no rhinitis, no cough, no nausea, and no vomiting. Mild right lower quadrant discomfort. No leg pain or leg swelling. PHYSICAL EXAMINATION GENERAL: In no acute distress. VITAL SIGNS: Temperature is 98, heart rate is 90, respiratory rate is 20, blood pressure is 134/85, and pulse oximetry is 93% on room air. HEENT: Moist mucous membranes. Crowded air. NECK: Supple. No JVD. LUNGS: Has a fair airflow with few rhonchi. HEART: S1 and S2. ABDOMEN: Soft and nontender. No organomegaly. EXTREMITIES: No edema. NEUROLOGIC: Awake and alert. Follows simple commands. MEDICATIONS: She is on albuterol nebulizer q. 4 hours. p.r.n., Dilaudid 0.5 mg q. 4 hours. p.r.n., Breo Elipita 1 puff daily, hydrochlorothiazide 25 mg daily, Lipitor 40 mg daily, Norvasc 10 mg daily, Pepcid 40 mg daily, Pyridium 200 mg after meal, Rocephin 1 g IV daily, Singulair 10 mg daily, IV fluid normal saline 150 mL per hour, and Synthroid 250 mcg daily. LABORATORY DATA: Reviewed and no new lab is available since yesterday. Urine culture which is repeat from 01/21/2017 so far there is no growth. ASSESSMENT AND PLAN: Chronic obstructive lung disease, chronic sinusitis, sleep apnea syndrome, nephrolithiasis, urinary tract infection, hypothyroid, status post cystoscopy extraction of left renal stone, and mild abdominal discomfort. From pulmonary point of view, she is doing okay. Encourage p.o. intake and bronchodilator. Discontinue IV fluid, antibiotics as per Infectious Disease. Gastric and deep venous thrombosis prophylaxis. Thank you very much and we will follow with you. Karmen Harrison MD
--- NOTE | 2017-01-23 23:54 | PN ---
DATE: 01/23/2017 PULMONARY PROGRESS NOTE REFERRING PHYSICIAN: Linda Raman MD SUBJECTIVE: She is sitting side of the bed and getting ready to go home, feels better. No headache. No rhinitis. No nausea. No vomiting. No diarrhea. No more abdominal pain. No dysuria. No leg pain or leg swelling. OBJECTIVE: GENERAL: In no acute distress. VITAL SIGNS: Temperature is 98, heart rate is 87, respiratory rate is 20, blood pressure is 114/80, and pulse ox 100% on room air. HEENT: Moist mucous membranes. Crowded airway. NECK: Supple. No JVD. LUNGS: Has a fair airflow with few rhonchi. HEART: S1 and S2. ABDOMEN: Soft and nontender. No organomegaly. EXTREMITIES: There is no edema. NEUROLOGIC: The patient is awake, alert, and follows simple commands. MEDICATIONS: Reviewed and noted. No new changes in medication reported since yesterday. LABORATORY DATA: Reviewed and noted. Hemoglobin 13.2, hematocrit 40.5, WBC 7.6, and platelet is 271. Sodium 140, potassium 3.1, chloride 101, bicarbonate 35, BUN 18, creatinine 0.6, and glucose 99. IMPRESSION AND PLAN: Chronic obstructive lung disease, chronic sinusitis, may have sleep apnea syndrome, nephrolithiasis, urinary tract infection, hypothyroid, status post cystoscopy with extraction of renal stone. Pulmonary point of view, doing okay. Continue bronchodilator. Keep head at 45 degrees. Fall precautions. Karmen Harrison MD
== END 2017-01-23 17:31 | disposition home or self-care (01) | DRG 694 ==
LOC: TRCU 14:38
PROVIDERS: ADMIT Internal Medicine; ATTEND Internal Medicine
PROC: F07Z9ZZ Gait Training/Functional Ambulation Treatment (ICD-10-PCS; principal; 2017-01-17)
PROC: F07M6ZZ Therapeutic Exercise Treatment of Musculoskeletal System - Whole Body (ICD-10-PCS; 2017-01-17)
PROC: F08Z2ZZ Grooming/Personal Hygiene Treatment (ICD-10-PCS; 2017-01-18)
PROC: F08Z1ZZ Dressing Techniques Treatment (ICD-10-PCS; 2017-01-18)
DX: N13.2 Hydronephrosis with renal and ureteral calculous obstruction (principal); E11.22 Type 2 diabetes mellitus with diabetic chronic kidney disease; I12.9 Hypertensive chronic kidney disease with stage 1 through stage 4 chronic kidney disease, or unspecified chronic kidney disease; E11.65 Type 2 diabetes mellitus with hyperglycemia; E87.6 Hypokalemia; G47.30 Sleep apnea, unspecified; J32.9 Chronic sinusitis, unspecified; J44.9 Chronic obstructive pulmonary disease, unspecified; K21.9 Gastro-esophageal reflux disease without esophagitis; B96.4 Proteus (mirabilis) (morganii) as the cause of diseases classified elsewhere; D64.9 Anemia, unspecified; E03.9 Hypothyroidism, unspecified; M79.7 Fibromyalgia; M81.0 Age-related osteoporosis without current pathological fracture; N18.9 Chronic kidney disease, unspecified; N39.0 Urinary tract infection, site not specified; Z87.11 Personal history of peptic ulcer disease; Z87.442 Personal history of urinary calculi; Z87.891 Personal history of nicotine dependence; Z90.710 Acquired absence of both cervix and uterus; E78.00 Pure hypercholesterolemia, unspecified; M19.90 Unspecified osteoarthritis, unspecified site; M48.00 Spinal stenosis, site unspecified; F41.9 Anxiety disorder, unspecified; F32.89 Other specified depressive episodes; Z91.19 Patient's noncompliance with other medical treatment and regimen

== ENCOUNTER 2017-06-01 14:13 | Emergency (ER) | payer MEDICARE, OTHER ==
[2017-06-01 14:14] VITALS: BMI 35.9
--- NOTE | 2017-06-01 14:34 | ED PDOC ---
Arrival/HPI - General Chief Complaint: Chest Pain Time Seen by Provider: 06/01/17 14:19 Historian: Patient - History of Present Illness Narrative History of Present Illness (Text): 06/01/17 14:31 51 year old female, whose history includes fibromyalgia, asthma, and a herniated disc in neck, presents to the Emergency department complaining of left sided chest pain which radiates to the left hand that began at 00:30 this morning. Patient states the pain woke her up and she took her anxiety medication to help her go back to sleep but the pain has not resolved. Patient denies any trauma/injury, fever, chills, shortness of breath, nausea, vomiting, diarrhea, urinary symptoms, back pain, neck pain, headache, dizziness, any other complaints. Time/Duration: Other (14 hours ago) Symptom Onset: Sudden Symptom Course: Unchanged Context: Home Past Medical History - Provider Review Nursing Documentation Reviewed: Yes - Infectious Disease Hx of Infectious Diseases: None - Tetanus Immunization Tetanus Immunization: Up to Date - Reproductive Menopause: Yes - Cardiac Hx Hypertension: Yes - Pulmonary Hx Respiratory Disorders: Yes Hx Asthma: Yes Hx Bronchitis: Yes Other/Comment: acute sinusitis - Neurological Hx Paralysis: No - HEENT Hx HEENT Disorder: Yes Other/Comment: DRY EYES - Renal Hx Renal Disorder: Yes Hx Kidney Stones: Yes - Endocrine/Metabolic Hx Hypothyroidism: Yes - Hematological/Oncological Hx Blood Transfusions: No Hx Blood Transfusion Reaction: No Other/Comment: Fibromyalgia - Integumentary Hx Dermatological Disorder: No - Musculoskeletal/Rheumatological Hx Arthritis: Yes - Gastrointestinal Hx Gastrointestinal Disorders: (hx reflux/ulcer) - Genitourinary/Gynecological Hx Reproductive Disorders: No - Psychiatric Hx Emotional Abuse: No Hx Physical Abuse: No Hx Substance Use: No - Past Surgical History Past Surgical History: No Previous - Surgical History Hx Hysterectomy: Yes (partial) Other/Comment: Stents for kidney stones 08/16/2015 - Anesthesia Hx Anesthesia Reactions: No Hx Malignant Hyperthermia: No - Suicidal Assessment Feels Threatened In Home Enviroment: No Family/Social History - Physician Review Nursing Documentation Reviewed: Yes Family/Social History: Unknown Family HX Smoking Status: Former Smoker Hx Alcohol Use: (RARE) Hx Substance Use: No Hx Substance Use Treatment: No Allergies/Home Meds Allergies/Adverse Reactions: Allergies No Known Allergies Allergy (Verified 06/01/17 14:21) Home Medications: Home Meds Medication Instructions Recorded Confirmed Hydrochlorothiazide [Microzide] 12.5 mg PO DAILY 01/07/16 06/01/17 Levothyroxine Sodium [Synthroid] 175 mcg PO QAM 04/11/16 06/01/17 Albuterol HFA [Ventolin HFA 90 2 puff IH TID PRN 04/24/16 06/01/17 mcg/actuation (8 g)] Nortriptyline HCl [Pamelor] 25 mg PO HS 04/24/16 06/01/17 Carisoprodol [Soma] 350 mg PO DAILY 06/01/17 06/01/17 Fluticasone/Vilanterol [Breo 1 cap NEB DAILY 06/01/17 06/01/17 Ellipta 100-25 Mcg INH] Oxycodone HCl/Acetaminophen 1 tab PO BID PRN 06/01/17 06/01/17 [Percocet 10-325 mg Tablet] clonazePAM [Klonopin] 1 mg PO DAILY PRN 06/01/17 06/01/17 traZODone [Desyrel] 50 mg PO DAILY PRN 06/01/17 06/01/17 Review of Systems - Physician Review All systems were reviewed & negative as marked: Yes - Review of Systems Constitutional: absent: Fevers, Night Sweats Respiratory: absent: SOB Cardiovascular: Chest Pain (left sided and radiates to left hand) Gastrointestinal: absent: Diarrhea, Nausea, Vomiting Genitourinary Female: absent: Dysuria Musculoskeletal: absent: Back Pain, Neck Pain Neurological: absent: Headache, Dizziness Physical Exam Vital Signs Reviewed: Yes Vital Signs Temp Pulse Resp BP Pulse Ox 06/01/17 18:00 62 18 127/81 99 06/01/17 17:40 61 22 167/92 H 98 06/01/17 17:30 57 L 174/101 H 06/01/17 17:24 59 L 20 177/101 H 99 06/01/17 16:16 166/100 H 06/01/17 15:51 62 18 167/107 H 98 06/01/17 14:14 98.2 F 57 L 18 161/99 H 98 Temperature: Afebrile Blood Pressure: Hypertensive Pulse: Bradycardic Respiratory Rate: Normal Appearance: Positive for: Well-Appearing, Non-Toxic, Comfortable Pain Distress: None Mental Status: Positive for: Alert and Oriented X 3 - Systems Exam Head: Present: Atraumatic, Normocephalic Pupils: Present: PERRL Extroacular Muscles: Present: EOMI Conjunctiva: Present: Normal Mouth: Present: Moist Mucous Membranes Neck: Present: Normal Range of Motion Respiratory/Chest: Present: Clear to Auscultation, Good Air Exchange, Tender to Palpation (tenderness to left anterior chest wall, over ribs 3 and 4). No: Respiratory Distress, Accessory Muscle Use Cardiovascular: Present: Regular Rate and Rhythm, Normal S1, S2. No: Murmurs Abdomen: Present: Normal Bowel Sounds. No: Tenderness, Distention, Peritoneal Signs Back: Present: Normal Inspection Upper Extremity: Present: Normal Inspection. No: Cyanosis, Edema Lower Extremity: Present: Normal Inspection. No: Edema Neurological: Present: GCS=15, CN II-XII Intact, Speech Normal Skin: Present: Warm, Dry, Normal Color. No: Rashes Psychiatric: Present: Alert, Oriented x 3, Normal Insight, Normal Concentration Medical Decision Making ED Course and Treatment: 06/01/17 14:37 Impression: 51 year old female presents to the Emergency department complaining of left sided chest pain that radiates to the left arm that began at 00:30 this morning. Plan: -- Chest xray -- EKG -- Urinalysis -- Labs -- Reassess and disposition Prior Visits: Notes and results from previous visits were reviewed. Patient was last seen in the emergency department on 01/13/17, was diagnosed with Renal colic on right side, UTI (urinary tract infection), and was hospitalized. Progress Notes: - Lab Interpretations Lab Results: 06/01/17 14:25 06/01/17 14:25 Lab Results 06/01/17 15:45: Urine Color Yellow, Urine Appearance Clear, Urine pH 7.0, Ur Specific [place] 1.010, Urine Protein Negative, Urine Glucose (UA) Negative, Urine Ketones Negative, Urine Blood Small H, Urine Nitrate Negative, Urine Bilirubin Negative, Urine Urobilinogen 0.2, Ur Leukocyte Esterase Negative, Urine RBC 5 - 10, Urine WBC 0 - 2, Ur Epithelial Cells 0 - 2, Calcium Oxalate Crystal Small, Urine Bacteria Small 06/01/17 14:25: Sodium 141, Potassium 3.6, Chloride 103, Carbon Dioxide 29, Anion Gap 13, BUN 17, Creatinine 0.7, Est GFR ( Amer) > 60, Est GFR (Non- Af Amer) > 60, Random Glucose 89, Calcium 10.2, Total Bilirubin 0.4, AST 37 H, ALT 54, Alkaline Phosphatase 93, Lactate Dehydrogenase 621, Total Creatine Kinase 148, Troponin I < 0.01, Total Protein 7.6, Albumin 4.3, Globulin 3.3, Albumin/Globulin Ratio 1.3 06/01/17 14:25: PT 11.0, INR 0.97 06/01/17 14:25: WBC 11.3 H D, RBC 5.07, Hgb 15.3 D, Hct 44.1, MCV 87.0 D, MCH 30.2, MCHC 34.7, RDW 14.6 H, Plt Count 252, MPV 9.1, Gran % 59.8, Lymph % (Auto ) 28.0, [place] % (Auto) 7.4 H, Eos % (Auto) 4.5, Baso % (Auto) 0.3, Gran # 6.74 H , Lymph # (Auto) 3.2, [place] # (Auto) 0.8 H, Eos # (Auto) 0.5, Baso # (Auto) 0.03 - RAD Interpretation Radiology Orders: 06/01/17 14:31 CXR [CHEST PORTABLE] [RAD] Stat - EKG Interpretation EKG Interpretation (Text): 06/01/17 14:23 EKG: Ordered, reviewed, and independently interpreted the EKG. Rate : 59 BPM Rhythm : Sinus Bradycardia Interpretation : Otherwise normal. No ST-segment elevations or depressions, no T -wave inversions, normal intervals. Interpreted by ED Physician: Yes Type: 12 lead EKG - Medication Orders Current Medication Orders: Discontinued Medications Amlodipine Besylate (Norvasc) 10 mg PO STAT STA Stop: 06/01/17 15:51 Last Admin: 06/01/17 16:16 Dose: 10 mg MAR Blood Pressure Document 06/01/17 16:16 EWO (Rec: 06/01/17 16:16 EWO [id number]) Blood Pressure Blood Pressure (100/60-150/90) 166/100 Hydralazine HCl (Apresoline) 10 mg IVP ONCE ONE Stop: 06/01/17 17:27 Last Admin: 03/25/18 17:30 Dose: 10 mg IVP Administration Document 06/01/17 17:30 SRE (Rec: 06/01/17 17:31 SRE [id number]) Charges for Administration # of IVP Administrations 1 MAR Pulse and Blood Pressure Document 06/01/17 17:30 SRE (Rec: 06/01/17 17:31 SRE [id number]) Pulse Pulse Rate (60-90) 57 Blood Pressure Blood Pressure (100/60-150/90) 174/101 Hydrochlorothiazide (Microzide) 12.5 mg PO STAT STA Stop: 06/01/17 15:51 Last Admin: 06/01/17 16:16 Dose: 12.5 mg - Scribe Statement The provider has reviewed the documentation as recorded by the Mackenzieiblatosha Flores All medical record entries made by the Mackenzieiblatosha were at my direction and personally dictated by me. I have reviewed the chart and agree that the record accurately reflects my personal performance of the history, physical exam, medical decision making, and the department course for this patient. I have also personally directed, reviewed, and agree with the discharge instructions and disposition. Disposition/Present on Arrival - Present on Arrival Any Indicators Present on Arrival: No History of DVT/PE: No History of Uncontrolled Diabetes: No Urinary Catheter: No History of Decub. Ulcer: No History Surgical Site Infection Following: None - Disposition Have Diagnosis and Disposition been Completed?: Yes Diagnosis: Musculoskeletal chest pain, COPD (chronic obstructive pulmonary disease), Fibromyalgia, Uncontrolled hypertension Disposition: HOME/ ROUTINE Disposition Time: 19:40 Patient Plan: Discharge Condition: GOOD Discharge Instructions (ExitCare): Chest Pain (ED), Costochondritis (DC), Fibromyalgia, Chronic Obstructive Pulmonary Disease (COPD), Including Emphysema , High Blood Pressure in Adults Additional Instructions: Wendelyn - Sorry that you are not feeling well - All of your tests are negative or normal. Take your medicines as prescribed, follow up with your doctor. Return to us if wrose or new symptoms occur. Maninder- Dr. Jacobo Dumas Forms: [employer] ([place])
[2017-06-01 14:43] LABS: BASO # 0.03 K/mm3 (0.0-2.0); BASO % 0.3 % (0.0-3.0); EOS # 0.5 (0.0-0.7); EOS % 4.5 % (1.5-5.0); GRAN # 6.74 (1.4-6.5); GRAN % 59.8 % (50.0-68.0); HEMOGLOBIN 15.3 g/dL (12.0-16.0); LYMPH # 3.2 (1.2-3.4); MEAN CORPUSCULAR HEMOGLOBIN 30.2 pg (25.0-35.0); MEAN CORPUSCULAR HGB CONC 34.7 g/dl (31.0-37.0); MEAN PLATELET VOLUME 9.1 fl (7.0-11.0); MONO # 0.8 (0.1-0.6); MONO % 7.4 % (1.0-6.0); RBC 5.07 10^6/uL (3.5-6.1); RED CELL DISTRIBUTION WIDTH 14.6 % (11.5-14.5); WHITE BLOOD COUNT 11.3 10^3/ul (4.5-11.0)
[2017-06-01 14:55] LABS: ALB/GLOB RATIO 1.3 (1.1-1.8); ALBUMIN 4.3 g/dL (3.0-4.8); ALT/SGPT 54 U/L (7-56); AST/SGOT 37 U/L (14-36); BLOOD UREA NITROGEN 17 mg/dL (7-21); CALCIUM 10.2 mg/dL (8.4-10.5); GFR AFRICAN-AMERICAN > 60; GFR NON-AFRICAN AMERICAN > 60
[2017-06-01 14:57] LABS: INR 0.97 (0.93-1.08)
[2017-06-01 15:06] LABS: TROPONIN I < 0.01 ng/mL
[2017-06-01 16:09] LABS: URINE BILIRUBIN NEGATIVE (NEGATIVE); URINE BLOOD SMALL (NEGATIVE); URINE GLUCOSE (UA) NEGATIVE (NEGATIVE); URINE LEUKOCYTE ESTERASE NEGATIVE Leu/uL (NEGATIVE); URINE PROTEIN NEGATIVE mg/dL (<30 mg/dL); URINE UROBILINOGEN 0.2 E.U./dL (<1 E.U./dL)
[2017-06-01 16:12] LABS: URINE APPEARANCE CLEAR (CLEAR); URINE COLOR YELLOW (YELLOW)
[2017-06-01 16:40] LABS: URINE BACTERIA SMALL (NEG); URINE CALCIUM OXALATE CRYSTALS SMALL /hpf; URINE EPITHELIAL CELLS 0 - 2 /hpf (0-5); URINE WBC 0 - 2 /hpf (0-6)
[2017-06-01 19:48] VITALS: BP 150/63; PULSE 58; RESP 16; TEMP 98; O2SAT 98
--- NOTE | 2017-06-02 08:03 | RAD ---
HISTORY: Chest Pain COMPARISON: Chest radiographs 05/13/2017. FINDINGS: LUNGS: No active pulmonary disease. PLEURA: No significant pleural effusion identified, no pneumothorax apparent. CARDIOVASCULAR: Normal. OSSEOUS STRUCTURES: No significant abnormalities. VISUALIZED UPPER ABDOMEN: Normal. OTHER FINDINGS: None. IMPRESSION: No interval acute cardiopulmonary disease appreciated.
--- NOTE | 2017-06-02 10:16 | CARD ---
APPROVED REPORT EKG Measurement Heart [id number] <Conclusion> Sinus bradycardia Otherwise normal ECG
== END 2017-06-01 19:52 | disposition home or self-care (01) ==
LOC: ED 14:13
DX: J44.9 Chronic obstructive pulmonary disease, unspecified (principal); I10 Essential (primary) hypertension; R07.89 Other chest pain; M79.7 Fibromyalgia; Z87.891 Personal history of nicotine dependence
CPT/HCPCS: 71045; 80053; 81001; 82550; 83615; 84484; 85025; 85610; 93005; 96374; 99285; J0360

== ENCOUNTER 2017-12-04 09:28 | Inpatient (IN) | payer MEDICARE, OTHER ==
[2017-12-04] MEDS ORDERED: Albuterol-Ipratrop 3 mg / 0.5 (3 ml) UD IH STA ×3 (09:47→10:04)
--- NOTE | 2017-12-04 09:57 | ED PDOC ---
Arrival/HPI - General Historian: Patient - History of Present Illness Narrative History of Present Illness (Text): 12/04/17 09:54 52yo female with pmhx of Asthma, hypothyroid, fibromyalgia who present with complaint of SOB and nonproductive cough since last night. . Describes the SOB as "trying to catch my breathe". Notes that this is same symptom she have with her Asthma exacerbation. States she used her inhaler this morning without relieve. Reports history of hospital admissions secondary to Asthma. Never intubated and not steroid dependent. Denies fever, chills, sick contact, travel, any other complaint. <Mukesh Navarrete A - Last Filed: 12/04/17 19:47> <Ye Marmolejo - Last Filed: 12/04/17 21:54> - General Chief Complaint: Shortness Of Breath Time Seen by Provider: 12/04/17 09:46 Past Medical History - Provider Review Nursing Documentation Reviewed: Yes - Infectious Disease Hx of Infectious Diseases: None - Tetanus Immunization Tetanus Immunization: Up to Date - Reproductive Menopause: Yes - Cardiac Hx Cardiac Disorders: Yes Hx Hypertension: Yes - Pulmonary Hx Respiratory Disorders: Yes Hx Asthma: Yes Hx Bronchitis: Yes - Neurological Hx Neurological Disorder: Yes Other/Comment: FIBROMYALGIA - HEENT Hx HEENT Disorder: Yes Hx Sinusitis: Yes - Renal Hx Renal Disorder: Yes Hx Kidney Stones: Yes - Endocrine/Metabolic Hx Endocrine Disorders: Yes Hx Hypothyroidism: Yes - Hematological/Oncological Hx Blood Transfusions: No Hx Blood Transfusion Reaction: No Other/Comment: Fibromyalgia - Integumentary Hx Dermatological Disorder: No - Musculoskeletal/Rheumatological Hx Musculoskeletal Disorders: Yes Hx Arthritis: Yes - Gastrointestinal Hx Gastrointestinal Disorders: Yes Hx Gastroesophageal Reflux: Yes - Genitourinary/Gynecological Hx Genitourinary Disorders: Yes Hx Urinary Tract Infection: Yes - Psychiatric Hx Substance Use: No - Past Surgical History Past Surgical History: No Previous - Surgical History Hx Hysterectomy: Yes (partial) Other/Comment: RENAL STENTS - Anesthesia Hx Anesthesia Reactions: No Hx Malignant Hyperthermia: No - Suicidal Assessment Feels Threatened In Home Enviroment: No <LandonHappiness A - Last Filed: 12/04/17 19:47> Family/Social History - Physician Review Nursing Documentation Reviewed: Yes Family/Social History: Unknown Family HX Smoking Status: Former Smoker Hx Alcohol Use: Yes (RARE) Hx Substance Use: No Hx Substance Use Treatment: No <Mukesh Navarrete A - Last Filed: 12/04/17 19:47> Allergies/Home Meds <Mukesh Navarrete A - Last Filed: 12/04/17 19:47> <FrancieYe - Last Filed: 12/04/17 21:54> Allergies/Adverse Reactions: Allergies No Known Allergies Allergy (Verified 12/04/17 09:37) Home Medications: Home Meds Medication Instructions Recorded Confirmed Levothyroxine Sodium [Synthroid] 175 mcg PO QAM 04/11/16 12/04/17 Albuterol HFA [Ventolin HFA 90 2 puff IH TID PRN 04/24/16 12/04/17 mcg/actuation (8 g)] Nortriptyline HCl [Pamelor] 25 mg PO HS 04/24/16 12/04/17 Carisoprodol [Soma] 350 mg PO DAILY 06/01/17 12/04/17 Fluticasone/Vilanterol [Breo 1 cap NEB DAILY 06/01/17 12/04/17 Ellipta 100-25 Mcg INH] Oxycodone HCl/Acetaminophen 1 tab PO BID PRN 06/01/17 12/04/17 [Percocet 10-325 mg Tablet] clonazePAM [Klonopin] 1 mg PO DAILY PRN 06/01/17 12/04/17 traZODone [Desyrel] 50 mg PO DAILY PRN 06/01/17 12/04/17 Review of Systems - Physician Review All systems were reviewed & negative as marked: Yes - Review of Systems Constitutional: Normal Eyes: Normal ENT: Normal Respiratory: SOB, Cough. absent: Sputum, Wheezing Cardiovascular: Normal Gastrointestinal: Normal Genitourinary Female: Normal Musculoskeletal: Normal Skin: Normal Neurological: Normal Endocrine: Normal Hemo/Lymphatic: Normal Psychiatric: Normal <Mukesh Navarrete A - Last Filed: 12/04/17 19:47> Physical Exam Vital Signs Reviewed: Yes Vital Signs Temp Pulse Resp BP Pulse Ox 12/04/17 09:37 98.6 F 77 18 146/94 H 96 Temperature: Afebrile Blood Pressure: Normal Pulse: Regular Respiratory Rate: Normal Appearance: Positive for: Well-Appearing, Non-Toxic, Comfortable Pain Distress: None Mental Status: Positive for: Alert and Oriented X 3 - Systems Exam Head: Present: Atraumatic, Normocephalic Pupils: Present: PERRL Extroacular Muscles: Present: EOMI Conjunctiva: Present: Normal Mouth: Present: Moist Mucous Membranes Neck: Present: Normal Range of Motion Respiratory/Chest: Present: Good Air Exchange, Wheezes (Mild expiratory wheeze at the bases), Decreased Breath Sounds, Other (Coarse BS diffusely). No: Clear to Auscultation, Respiratory Distress, Accessory Muscle Use, Rales, Retracting, Rhonchi Cardiovascular: Present: Regular Rate and Rhythm, Normal S1, S2. No: Murmurs Abdomen: No: Tenderness, Distention, Peritoneal Signs Back: Present: Normal Inspection Upper Extremity: Present: Normal Inspection. No: Cyanosis, Edema Lower Extremity: Present: Normal Inspection. No: Edema Neurological: Present: GCS=15, CN II-XII Intact, Speech Normal Skin: Present: Warm, Dry, Normal Color. No: Rashes Psychiatric: Present: Alert, Oriented x 3, Normal Insight, Normal Concentration <Diru,Happiness A - Last Filed: 12/04/17 19:47> Vital Signs Temp Pulse Resp BP Pulse Ox 12/04/17 12:59 89 18 117/77 96 12/04/17 11:45 75 18 142/85 96 12/04/17 09:37 98.6 F 77 18 146/94 H 96 <Ye Marmolejo - Last Filed: 12/04/17 21:54> Medical Decision Making ED Course and Treatment: 12/04/17 10:03 52yo female Asthmaticus in ED with 2days history of SOB and nonproductive cough. Duoneb x 3 Prednisone 60mg Will reassess pt. 12/04/17 19:47 On re evaluation s/p duoneb x 3, prednisone and mag sulfate pt continued to be symptomatic. Her lab was reviewed and potassium was repleted. Mild leukocytosis was noted Chest xray IMPRESSION: Central hilar prominence versus perihilar infiltrates. Mild pulmonary venous congestion. Cardiomegaly. Ectatic aorta. Secondary to pt's WBC. Lab culture was ordered and pt started on abx for CAP. PT was admitted secondary to continuous symptoms. Case was DW Dr. Coreas while she was in ED. she saw patient by the bedside and accepted pt for admission. - Medication Orders Current Medication Orders: Albuterol/Ipratropium (Duoneb 3 Mg/0.5 Mg (3 Ml) Ud) 3 ml IH STAT STA Stop: 12/04/17 09:54 Discontinued Medications Albuterol/Ipratropium (Duoneb 3 Mg/0.5 Mg (3 Ml) Ud) 3 ml IH STAT STA Stop: 12/04/17 09:48 Prednisone (Prednisone Tab) 60 mg PO STAT ONE Stop: 12/04/17 09:48 <Mukesh Navarrete A - Last Filed: 12/04/17 19:47> - Lab Interpretations Lab Results: 12/04/17 11:54 12/04/17 11:54 Lab Results 12/04/17 11:54: Sodium 140, Potassium 3.0 L, Chloride 102, Carbon Dioxide 28, Anion Gap 13, BUN 9, Creatinine 0.6 L, Est GFR ( Amer) > 60, Est GFR (Non-Af Amer) > 60, Random Glucose 119 H, Calcium 8.7, Total Bilirubin 0.4, AST 50 H D, ALT 83 H, Alkaline Phosphatase 121, Total Protein 6.8, Albumin 3.9, Globulin 2.9, Albumin/Globulin Ratio 1.3 12/04/17 11:54: PT 11.7, INR 1.02, APTT 29.8 12/04/17 11:54: WBC 12.4 H, RBC 5.16, Hgb 15.7, Hct 45.9, MCV 89.0, MCH 30.4, MCHC 34.2, RDW 13.2, Plt Count 325, MPV 9.7, Gran % 76.9 H, Lymph % (Auto) 15.7 L, [place] % (Auto) 3.1, Eos % (Auto) 4.1, Baso % (Auto) 0.2, Gran # 9.54 H, Lymph # (Auto) 2.0, [place] # (Auto) 0.4, Eos # (Auto) 0.5, Baso # (Auto) 0.02 - RAD Interpretation Radiology Orders: 12/04/17 13:04 CHEST PORTABLE [RAD] Stat - Medication Orders Current Medication Orders: Albuterol/Ipratropium (Duoneb 3 Mg/0.5 Mg (3 Ml) Ud) 3 ml IH Q2H PRN PRN Reason: Shortness of Breath Last Admin: 12/04/17 17:34 Dose: 3 ml Albuterol/Ipratropium (Duoneb 3 Mg/0.5 Mg (3 Ml) Ud) 3 ml IH [id number] ASH Last Admin: 12/04/17 20:10 Dose: 3 ml Amlodipine Besylate (Norvasc) 10 mg PO DAILY ASH Last Admin: 12/04/17 17:39 Dose: 10 mg MAR Blood Pressure Document 12/04/17 17:39 AJ (Rec: 12/04/17 17:39 AJ [id number]) Blood Pressure Blood Pressure (100/60-150/90) 132/72 Clonazepam (Klonopin) 1 mg PO DAILY PRN; Protocol PRN Reason: Anxiety Last Admin: 12/04/17 21:09 Dose: 1 mg Azithromycin (Zithromax 500mg In Ns) 500 mg in 250 mls @ 167 mls/hr IVPB DAILY ASH; Protocol Ceftriaxone Sodium (Rocephin 1 Gram Ivpb) 1 gm in 100 mls @ 100 mls/hr IVPB DAILY ASH; Protocol Last Admin: 12/04/17 17:33 Dose: 100 mls/hr eMAR Start Stop Document 12/04/17 17:33 AJ (Rec: 12/04/17 17:33 AJ [id number]) Intravenous Solution Start Date 12/04/17 Start Time 14:00 Levothyroxine Sodium (Synthroid) 175 mcg PO ACB ASH Methylprednisolone (Solu-Medrol) 40 mg IVP Q8 ASH Last Admin: 12/04/17 21:09 Dose: 40 mg IVP Administration Document 12/04/17 21:09 [facility] (Rec: 12/04/17 21:[id number]) Charges for Administration # of IVP Administrations 1 Nortriptyline HCl (Pamelor) 25 mg PO HS ASH Last Admin: 12/04/17 21:09 Dose: 25 mg Oxycodone/Acetaminophen (Percocet 10/325 Mg Tab) 1 tab PO BID PRN PRN Reason: pain Pantoprazole Sodium (Protonix Ec Tab) 40 mg PO 0630 ASH Trazodone HCl (Desyrel) 50 mg PO HS ASH Last Admin: 12/04/17 21:09 Dose: 50 mg Discontinued Medications Albuterol/Ipratropium (Duoneb 3 Mg/0.5 Mg (3 Ml) Ud) 3 ml IH STAT STA Stop: 12/04/17 09:48 Last Admin: 12/04/17 10:07 Dose: 3 ml Albuterol/Ipratropium (Duoneb 3 Mg/0.5 Mg (3 Ml) Ud) 3 ml IH STAT STA Stop: 12/04/17 09:54 Last Admin: 12/04/17 10:51 Dose: 3 ml Albuterol/Ipratropium (Duoneb 3 Mg/0.5 Mg (3 Ml) Ud) 3 ml IH STAT STA Stop: 12/04/17 10:05 Last Admin: 12/04/17 10:24 Dose: 3 ml Magnesium Sulfate (Magnesium Sulfate 2 Gm/50 Ml Water) 2 gm in 50 mls @ 50 mls/hr IVPB ONCE ONE Stop: 12/04/17 12:01 Last Admin: 12/04/17 11:30 Dose: 50 mls/hr eMAR Start Stop Document 12/04/17 11:30 KI (Rec: 12/04/17 11:31 KI [id number]) Intravenous Solution Start Date 12/04/17 Start Time 11:31 End Date 12/04/17 End time 12:31 Total Infusion Time 60 Ceftriaxone Sodium (Rocephin 1 Gram Ivpb) 1 gm in 100 mls @ 200 mls/hr IVPB STAT STA; Protocol Stop: 12/04/17 14:28 Last Admin: 12/04/17 14:10 Dose: 200 mls/hr eMAR Start Stop Document 12/04/17 14:10 KI (Rec: 12/04/17 14:10 KI [id number]) Intravenous Solution Start Date 12/04/17 Start Time 14:10 Azithromycin (Zithromax 500mg In Ns) 500 mg in 250 mls @ 167 mls/hr IVPB STAT STA; Protocol Stop: 12/04/17 15:27 Last Admin: 12/04/17 17:34 Dose: 167 mls/hr eMAR Start Stop Document 12/04/17 17:34 EVAN (Rec: 12/04/17 17:34 AJ [id number]) Intravenous Solution Start Date 12/04/17 Start Time 17:34 Potassium Chloride (K-Dur 20 Meq Er Tab) 40 meq PO STAT STA Stop: 12/04/17 12:21 Last Admin: 12/04/17 12:52 Dose: 40 meq Prednisone (Prednisone Tab) 60 mg PO STAT ONE Stop: 12/04/17 09:48 Last Admin: 12/04/17 10:02 Dose: 60 mg Trazodone HCl (Desyrel) 50 mg PO DAILY ASH <Ye Marmolejo - Last Filed: 12/04/17 21:54> - PA / STRIP FEEDER / Resident Statement / has reviewed & agrees with the documentation as recorded. <Ye Marmolejo - Last Filed: 12/04/17 21:54> Disposition/Present on Arrival - Present on Arrival Any Indicators Present on Arrival: No History of DVT/PE: No History of Uncontrolled Diabetes: No Urinary Catheter: No History of Decub. Ulcer: No History Surgical Site Infection Following: None - Disposition Have Diagnosis and Disposition been Completed?: Yes Disposition Time: 13:15 Patient Plan: Admission <Mukesh Navarrete - Last Filed: 12/04/17 19:47> <Ye Marmolejo - Last Filed: 12/04/17 21:54> - Disposition Diagnosis: Asthma exacerbation, Pneumonia Disposition: HOSPITALIZED Patient Problems: Current Active Problems Problem Status Onset Asthma exacerbation Acute Pneumonia Acute Condition: FAIR
[2017-12-04] MEDS ORDERED: Magnesium Sulfate 2 gm/50 ml 2 GM/50 ML BAG IVPB ONE (11:02)
[2017-12-04 12:02] LABS: BASO # 0.02 K/mm3 (0.0-2.0); BASO % 0.2 % (0.0-3.0); EOS # 0.5 (0.0-0.7); EOS % 4.1 % (1.5-5.0); GRAN # 9.54 (1.4-6.5); GRAN % 76.9 % (50.0-68.0); HEMOGLOBIN 15.7 g/dL (12.0-16.0); LYMPH % 15.7 % (22.0-35.0); MEAN CORPUSCULAR HEMOGLOBIN 30.4 pg (25.0-35.0); MEAN CORPUSCULAR HGB CONC 34.2 g/dl (31.0-37.0); MEAN PLATELET VOLUME 9.7 fl (7.0-11.0); MONO # 0.4 (0.1-0.6); MONO % 3.1 % (1.0-6.0); RBC 5.16 10^6/uL (3.5-6.1); RED CELL DISTRIBUTION WIDTH 13.2 % (11.5-14.5); WHITE BLOOD COUNT 12.4 10^3/ul (4.5-11.0)
[2017-12-04 12:10] LABS: ALB/GLOB RATIO 1.3 (1.1-1.8); ALBUMIN 3.9 g/dL (3.0-4.8); ALT/SGPT 83 U/L (7-56); AST/SGOT 50 U/L (14-36); BLOOD UREA NITROGEN 9 mg/dL (7-21); CALCIUM 8.7 mg/dL (8.4-10.5); GFR NON-AFRICAN AMERICAN > 60; INR 1.02; PARTIAL THROMBOPLASTIN TIME 29.8 Seconds (25.1-36.5); PROTHROMBIN TIME 11.7 SECONDS (9.4-12.5)
[2017-12-04] MEDS ORDERED: Potassium Chloride 20 mEq ER Tab PO STA (12:20)
--- NOTE | 2017-12-04 13:30 | RAD ---
HISTORY: SOB COMPARISON: Chest x-ray performed 06/01/17 TECHNIQUE: Chest, one view. FINDINGS: Examination limited by habitus. LUNGS: Central hilar prominence versus perihilar infiltrates. Mild pulmonary venous congestion. Please note that chest x-ray has limited sensitivity for the detection of pulmonary masses. PLEURA: No significant pleural effusion identified. No definite pneumothorax . CARDIOVASCULAR: Cardiomegaly. Ectatic aorta. OSSEOUS STRUCTURES: Degenerative changes. VISUALIZED UPPER ABDOMEN: Unremarkable. OTHER FINDINGS: None. IMPRESSION: Central hilar prominence versus perihilar infiltrates. Mild pulmonary venous congestion. Cardiomegaly. Ectatic aorta.
[2017-12-04] MEDS ORDERED: Azithromycin 500MG/NS 250ml 500 MG/250 ML BAG IVPB STA (13:58)
[2017-12-04] MEDS ORDERED: cefTRIAXone 1 gm 1 GM/100 ML BAG IVPB STA (13:59)
[2017-12-04] MEDS ORDERED: Albuterol-Ipratrop 3 mg / 0.5 (3 ml) UD IH PRN (15:42)
[2017-12-04] MEDS: cefTRIAXone 1 gm 1 GM/100 ML BAG IVPB SCH (17:33)
[2017-12-04] MEDS: Albuterol-Ipratrop 3 mg / 0.5 (3 ml) UD IH SCH (20:10)
[2017-12-04] MEDS: MethylPREDNISolone 40 mg Vial IVP SCH (21:09)
[2017-12-04 22:32] VITALS: BMI 32.2
[2017-12-04] MEDS ORDERED: Influenza Vaccine 60 mcg/0.5 mL SYR (4YR UP) IM ONE (22:32)
[2017-12-04] MEDS ORDERED: Pneumococcal 23-Valent Vaccine IM ONE (22:32)
--- NOTE | 2017-12-04 23:16 | HP ---
HISTORY OF PRESENT ILLNESS: The patient is 52 years old, who went for flu shot almost a week ago. She states after 2-3 days, she started to have cough, congestion, chest tightness, runny stuffy nose and she has been taking her nebulizer and inhaler very frequently with no significant relief. She was unable to take deep breath. Was still having air hunger, so she came to emergency room for further evaluation. PAST MEDICAL HISTORY: She has past medical history significant for, 1. Hypertension. 2. Hyperlipidemia. 3. Hypothyroidism. 4. History of degenerative disk disease. 5. Fibromyalgia, she has spinal stenosis. 7. History of nephrolithiasis. MEDICATIONS AT HOME: She is on Pepcid 40 mg at bedtime, Ventolin HFA, Percocet, Nortriptyline, levothyroxine 175 mcg daily, Breo Ellipta, Soma, trazodone and Klonopin. SOCIAL HISTORY: She used to be a former smoker, but does not smoke anymore. PHYSICAL EXAMINATION: GENERAL: . VITAL SIGNS: She is afebrile, pulse 92, respirations 18, blood pressure 136/97. LUNGS: Bilateral good airflow. No rhonchi or crackle. HEART: S1 and S2 audible. ABDOMEN: Soft. Nontender. No rebound. No guarding. NEUROLOGICAL: The patient is awake, alert, oriented, communicative. LABORATORY EXAM: WBC is 12.4, hemoglobin 15.7, hematocrit 45.9, platelet 325. PT 11.7, INR 1.02. Chemistry: Sodium 140, potassium 3, chloride 102, CO2 of 28, BUN 9, creatinine 0.6, blood sugar of 119, AST 50, ALT 83. X-ray chest shows central hilar prominence versus perihilar infiltrate. Mild pulmonary venous congestion. ASSESSMENT: 1. Chronic obstructive pulmonary disease exacerbation. 2. Hypertension. 3. Hyperlipidemia. 4. Noninsulin-dependent diabetes. PLAN: We will start the patient on IV antibiotic. She has been started on Rocephin, IV steroid. I will order for the CT scan of the chest to confirm if this is hilar prominence or she actually has infiltrate. We will follow up this patient in the a.m. Holger Coreas MD [facility] # [id number]
[2017-12-05] MEDS: Albuterol-Ipratrop 3 mg / 0.5 (3 ml) UD IH SCH ×4 (01:54→20:38)
[2017-12-05] MEDS: MethylPREDNISolone 40 mg Vial IVP SCH ×3 (06:47→21:30)
[2017-12-05] MEDS: Pantoprazole 40 mg EC Tab PO SCH (06:47)
[2017-12-05 07:47] LABS: EOS % 0.1 % (1.5-5.0); GRAN # 12.53 (1.4-6.5); GRAN % 86.8 % (50.0-68.0); HEMOGLOBIN 14.4 g/dL (12.0-16.0); LYMPH # 1.6 (1.2-3.4); LYMPH % 10.9 % (22.0-35.0); MEAN CELL VOLUME 88.6 fl (80.0-105.0); MEAN CORPUSCULAR HEMOGLOBIN 30.4 pg (25.0-35.0); MEAN CORPUSCULAR HGB CONC 34.4 g/dl (31.0-37.0); MEAN PLATELET VOLUME 9.2 fl (7.0-11.0); MONO # 0.3 (0.1-0.6); MONO % 2.2 % (1.0-6.0); RBC 4.73 10^6/uL (3.5-6.1); RED CELL DISTRIBUTION WIDTH 13.3 % (11.5-14.5); WHITE BLOOD COUNT 14.4 10^3/ul (4.5-11.0)
[2017-12-05] MEDS: Levothyroxine 175 MCG TAB PO SCH (07:49)
[2017-12-05 08:02] LABS: ALB/GLOB RATIO 1.1 (1.1-1.8); ALBUMIN 3.7 g/dL (3.0-4.8); ALT/SGPT 63 U/L (7-56); AST/SGOT 37 U/L (14-36); BLOOD UREA NITROGEN 14 mg/dL (7-21); CALCIUM 9.4 mg/dL (8.4-10.5); GFR NON-AFRICAN AMERICAN > 60; HDL CHOLESTEROL 34 mg/dL (29-60)
[2017-12-05 08:08] LABS: LDL CHOLESTEROL 159 mg/dL (0-129)
[2017-12-05 08:13] LABS: FREE T4 1.04 ng/dL (0.78-2.19)
[2017-12-05] MEDS: Azithromycin 500MG/NS 250ml 500 MG/250 ML BAG IVPB SCH (09:21)
[2017-12-05] MEDS: cefTRIAXone 1 gm 1 GM/100 ML BAG IVPB SCH (09:21)
[2017-12-05] MEDS: Oxycodone/Acetaminophen 10/325 mg Tab PO PRN ×2 (09:50→17:34)
--- NOTE | 2017-12-05 11:17 | CT ---
Date of service: 12/04/2017 PROCEDURE: CT Chest without contrast HISTORY: sob COMPARISON: Noncontrast chest CT 01/04/2016. TECHNIQUE: Contiguous axial images were obtained through the chest without intravenous contrast enhancement. Sagittal and coronal reconstructions were performed. Radiation dose (DLP): 394.65 mGy-cm. This CT exam was performed using one or more of the following dose reduction techniques: Automated exposure control, adjustment of the mA and/or kV according to patient size, and/or use of iterative reconstruction technique. FINDINGS: LUNGS: No airspace disease bilaterally. Central airways are clear. No dominant mass identified. MEDIASTINUM: Stable mildly aneurysmal ascending thoracic aorta 3.9 x 4.2 cm (transverse by anteroposterior dimension). Normal sized heart. Coronary artery atherosclerosis reiterated. Main pulmonary artery unremarkable. No vascular congestion. No lymphadenopathy. PLEURA: No pleural fluid. No pneumothorax. BONES: No fracture. No destructive lesion. UPPER ABDOMEN: Grossly unremarkable. OTHER FINDINGS: None. IMPRESSION: Nonacute noncontrast chest CT stable dilatation of the ascending thoracic aorta measuring 3.9 x 4.2 cm representing mild aneurysm. No significant change from prior chest CT 01/04/2016. Concordant preliminary report from [facility], 12/04/2017.
--- NOTE | 2017-12-05 22:52 | CP.PCM.PCO ---
Addendum Addendum: S: Resident paged for pt complaining of chest pain. Pt seen and examined at bedside immediately after page received. Pt complains of "chest tightness" and anxiety. She reports she still has wheezing after duoneb treatment. She denies diaphoresis. Chest pain is tender to palpation. She reports she gets very anxious at night and usually takes trazodone and clonazepam at bedtime. She attributes her chest tightness to her anxiety O: VSS. EKG unchanged from previous EKGs. NSR with sinus arrhythmia. Saturating well on room air. Denies substernal chest pain. Chest pain reproducible with palpation along costochondral junction. HR RRR no m/r/g Lungs CTA b/l A/P: Stat EKG/ troponin Begin duoneb treatment Adminiser nighttime anxiety medications. Monitor closely overnight 12/05/17 22:56
--- NOTE | 2017-12-05 23:43 | PN ---
DATE: 12/05/2017 SUBJECTIVE: The patient is a 52-year-old, seen and examined. Still complained of cough, congestion, wheezing bilaterally. She states she feels very uncomfortable, still unable to catch her breath, especially after she eats. The patient recently has gastric stapling done also. PHYSICAL EXAMINATION VITAL SIGNS: The patient is afebrile, pulse 90, respiration 18, blood pressure 106/66. LUNGS: Bilateral fair airflow. Diffuse expiratory rhonchi. HEART: S1, S2 audible. ABDOMEN: Soft, nontender. No rebound, no guarding. NEUROLOGIC: The patient is awake and alert, able to communicate. EXTREMITIES: Bilateral legs, no edema. LABORATORY EXAM: WBC 14, hemoglobin 14, hematocrit 41, platelets 326. Chemistry: Sodium 140, potassium 3.9, chloride 105, CO2 of 24, BUN 14, creatinine 0.6, blood sugar 127. AST 37, ALT 64. LFTs are within normal limit. Had CT scan of the chest done, shows nonacute, noncontrast chest CT stable, dilatation of ascending thoracic aorta representing mild aneurysm. No significant changes from the prior CT. Lungs shows no infiltrate. ASSESSMENT: 1. Asthma exacerbation. 2. Hypertension. 3. Recent gastric stapling. 4. Hypothyroidism. 5. Chronic back pain. PLAN: Currently, the patient is on nebulizer treatment. We will continue her on IV steroid. She is on Klonopin. She is on atorvastatin. Continue her on Protonix, Rocephin and Zithromax. We will reevaluate in a.m., make discharge plan if she is stable. Holger Coreas MD
[2017-12-06] MEDS: Albuterol-Ipratrop 3 mg / 0.5 (3 ml) UD IH SCH ×4 (01:13→21:18)
[2017-12-06] MEDS: MethylPREDNISolone 40 mg Vial IVP SCH ×3 (05:46→21:50)
[2017-12-06] MEDS: Pantoprazole 40 mg EC Tab PO SCH (05:46)
[2017-12-06] MEDS: Levothyroxine 175 MCG TAB PO SCH (08:00)
--- NOTE | 2017-12-06 09:08 | CARD ---
APPROVED REPORT Date of service: 12/05/2017 EKG Measurement Heart [id number] <Conclusion> Normal sinus rhythm LVH by voltage No change
[2017-12-06] MEDS: Oxycodone/Acetaminophen 10/325 mg Tab PO PRN ×2 (10:53→20:50)
[2017-12-06] MEDS: cefTRIAXone 1 gm 1 GM/100 ML BAG IVPB SCH (10:55)
[2017-12-06] MEDS: Azithromycin 500MG/NS 250ml 500 MG/250 ML BAG IVPB SCH (10:55)
[2017-12-06] MEDS ORDERED: Magnesium Hydroxide Susp 30 ml UD PO PRN (15:51)
--- NOTE | 2017-12-06 18:29 | PN ---
DATE: 12/06/2017 SUBJECTIVE: The patient is 52 years old, seen and examined, sitting in chair. Still has cough, congestion, wheezing. Complained of difficulty swallowing. PHYSICAL EXAMINATION: VITAL SIGNS: She is afebrile, pulse 81, respirations 18, blood pressure 110/76. LUNGS: Bilateral expiratory rhonchi. HEART: S1 and S2 audible. ABDOMEN: Soft. Nontender. No rebound. No guarding. NEUROLOGICAL: The patient is awake, alert, oriented and communicative. LABORATORY EXAM: Blood sugar is 126. ASSESSMENT: 1. Asthma exacerbation. 2. Recent gastric stapling. 3. Rule out gastroesophageal reflux disease. 4. Anxiety disorder. 5. Hypothyroidism. PLAN: I will request Dr. Zamarripa to evaluate the patient. She is on PPI. We will start her on incentive spirometry. I will change her Klonopin to 0.5 t.i.d. p.r.n. We will follow up the patient in the a.m. Holger Coreas MD
[2017-12-07] MEDS: Albuterol-Ipratrop 3 mg / 0.5 (3 ml) UD IH SCH ×4 (02:37→20:21)
[2017-12-07] MEDS: Pantoprazole 40 mg EC Tab PO SCH (06:47)
[2017-12-07] MEDS: Levothyroxine 175 MCG TAB PO SCH (08:23)
[2017-12-07] MEDS: Oxycodone/Acetaminophen 10/325 mg Tab PO PRN ×2 (08:28→20:37)
[2017-12-07] MEDS: Azithromycin 500MG/NS 250ml 500 MG/250 ML BAG IVPB SCH (09:33)
[2017-12-07] MEDS: cefTRIAXone 1 gm 1 GM/100 ML BAG IVPB SCH (09:33)
--- NOTE | 2017-12-07 09:33 | CP.PCM.CON ---
<William Wick - Last Filed: 12/07/17 14:57> History of Present Illness - History of Present Illness History of Present Illness: PGY 5 Initial GI Consult Vidhya Bradford is a 52F w/ hx of Asthma, obesity s/p gastric sleeve 09/2016, PUD? who presented to the ER with SOB and chest tightness. Pt states that she recently had a Gastric Sleeve on 09/2016 and has been following all instructions. She notes that she has been complaint on diet and slowly transitioned to solids recently. She states that she has intractable nausea and vomiting post prandially and complaints of retrosternal burning. She notes that prior to surgery she had chronic diarrhea and subsequently had a colonoscopy 2 years prior. She was told that she may have crohn's, though never treated. She was previously seen for elevated LFTs and found to have Hep c. Pt failed to followup with [facility] for treatment eval. She notes having a colonoscopy and EGD with her oupt GI 2 years prior, and only found gastritis. She notes that she recently had a follow-up with her bariatric surgeon and was recommended to get an esophogram as an outpt and follow-up. Pt is also being actively tx for asthma exacerbation. PMHx: Asthma, Bronchitis, Renal Disease, Nephrolithiasis, Hypothyroidism, Peptic Ulcer Disease, Spinal Stenosis, Anxiety, Depression, Fibromyaglia, DJD, HTN PSHx: sleeve gastrectomy 09/2017 Social hx: denies ETOH, smoking, illicit drugs Family hx: denies ROS: 12 point ROS conducted, neg other than above Past Patient History - Infectious Disease Hx of Infectious Diseases: None - Tetanus Immunizations Tetanus Immunization: Up to Date - Past Medical History & Family History Past Medical History?: Yes - Past Social History Smoking Status: Never Smoked - CARDIAC Hx Cardiac Disorders: Yes (cp) Hx Hypertension: Yes Other/Comment: AAA "went away" pt stated - PULMONARY Hx Respiratory Disorders: Yes Hx Asthma: Yes Hx Bronchitis: Yes Hx Pneumonia: Yes - NEUROLOGICAL Hx Neurological Disorder: Yes - HEENT Hx HEENT Problems: Yes (sinusitis) - RENAL Hx Chronic Kidney Disease: Yes (renal colic) Hx Kidney Stones: Yes Other/Comment: cystos with laser lithotripsy and stent - ENDOCRINE/METABOLIC Hx Endocrine Disorders: Yes Hx Hypothyroidism: Yes - HEMATOLOGICAL/ONCOLOGICAL Hx Blood Disorders: Yes Hx Hepatitis C: Yes (under control) - INTEGUMENTARY Hx Dermatological Problems: No - MUSCULOSKELETAL/RHEUMATOLOGICAL Hx Falls: No - GASTROINTESTINAL Hx Gastrointestinal Disorders: Yes Hx Gastroesophageal Reflux: Yes Hx Ulcer: Yes - GENITOURINARY/GYNECOLOGICAL Hx Genitourinary Disorders: Yes Hx Urinary Tract Infection: Yes - PSYCHIATRIC Hx Substance Use: No - SURGICAL HISTORY Hx Hysterectomy: Yes (partial due to fibroids) Other/Comment: RENAL STENTS, bariatric sx 09/26/17 lost 27 lbs, thyroid bx, cervical disc sx 2 disks removed from neck, epidural,b/l carpal tunnel, multiple cystos, - ANESTHESIA Hx Anesthesia Reactions: No Hx Malignant Hyperthermia: No Meds Allergies/Adverse Reactions: Allergies Allergy/AdvReac Type Severity Reaction Status Date / Time No Known Allergies Allergy Verified 12/04/17 09:37 - Medications Medications: Current Medications Albuterol/Ipratropium (Duoneb 3 Mg/0.5 Mg (3 Ml) Ud) 3 ml IH Q2H PRN PRN Reason: Shortness of Breath Last Admin: 12/04/17 17:34 Dose: 3 ml Albuterol/Ipratropium (Duoneb 3 Mg/0.5 Mg (3 Ml) Ud) 3 ml IH [id number] [facility] Last Admin: 12/07/17 08:26 Dose: 3 ml Amlodipine Besylate (Norvasc) 10 mg PO DAILY [facility] Last Admin: 12/06/17 10:54 Dose: 10 mg Atorvastatin Calcium (Lipitor) 20 mg PO DIN [facility] Last Admin: 12/06/17 19:11 Dose: 20 mg Clonazepam (Klonopin) 0.5 mg PO TID [facility]; Protocol Last Admin: 12/06/17 19:10 Dose: 0.5 mg Azithromycin (Zithromax 500mg In Ns) 500 mg in 250 mls @ 167 mls/hr IVPB DAILY [facility]; Protocol Last Admin: 12/06/17 10:55 Dose: 167 mls/hr Ceftriaxone Sodium (Rocephin 1 Gram Ivpb) 1 gm in 100 mls @ 100 mls/hr IVPB DAILY [facility]; Protocol Stop: 12/08/17 10:59 Last Admin: 12/06/17 10:55 Dose: 100 mls/hr Levothyroxine Sodium (Synthroid) 175 mcg PO ACB [facility] Last Admin: 12/07/17 08:23 Dose: 175 mcg Magnesium Hydroxide (Milk Of Magnesia) 30 ml PO DAILY PRN PRN Reason: Constipation Last Admin: 12/06/17 19:10 Dose: 30 ml Methylprednisolone (Solu-Medrol) 40 mg IVP Q12 [facility] Last Admin: 12/06/17 21:50 Dose: 40 mg Nortriptyline HCl (Pamelor) 25 mg PO HS [facility] Last Admin: 12/06/17 21:50 Dose: 25 mg Oxycodone/Acetaminophen (Percocet 10/325 Mg Tab) 1 tab PO BID PRN PRN Reason: pain Last Admin: 12/07/17 08:28 Dose: 1 tab Pantoprazole Sodium (Protonix Ec Tab) 40 mg PO 0630 [facility] Last Admin: 12/07/17 06:47 Dose: 40 mg Trazodone HCl (Desyrel) 50 mg PO [facility] Last Admin: 12/06/17 21:50 Dose: 50 mg Physical Exam - Constitutional Appears: Well, No Acute Distress - Head Exam Head Exam: ATRAUMATIC, NORMOCEPHALIC - Eye Exam Eye Exam: Normal appearance - ENT Exam ENT Exam: Mucous Membranes Moist, Normal Exam - Neck Exam Neck exam: Positive for: Normal Inspection - Respiratory Exam Respiratory Exam: Clear to Auscultation Bilateral, Rhonchi, Wheezes, NORMAL BREATHING PATTERN. absent: Rales, Respiratory Distress - Cardiovascular Exam Cardiovascular Exam: REGULAR RHYTHM, +S1, +S2 - GI/Abdominal Exam GI & Abdominal Exam: Normal Bowel Sounds, Soft. absent: Guarding, Hernia, Mass, Organomegaly, Rebound, Rigid - Extremities Exam Extremities exam: Negative for: joint swelling, pedal edema - Neurological Exam Neurological exam: Alert, Oriented x3 - Psychiatric Exam Psychiatric exam: Normal Affect, Normal Mood - Skin Skin Exam: Dry, Intact, Normal Color, Warm Results - Vital Signs Recent Vital Signs: Last Vital Signs Temp 97.4 F L 12/07/17 06:00 Pulse 72 12/07/17 06:00 Resp 20 12/07/17 06:00 BP 130/87 12/07/17 06:00 Pulse Ox 93 L 12/07/17 06:00 - Labs Result Diagrams: 12/05/17 07:30 12/05/17 07:30 Assessment & Plan - Assessment and Plan (Free Text) Assessment: Vidhya Bradford is a 52F w/ recent gastric sleeve, Crohns?, chronic diarrhea, Hep C who presents to the ER w/ complaints of SOB Abd pain, DDx: PUD, post-op complication, pyloric obstruction, gastroparesis Intractable vomiting Elevated LFTs, likely 2/2 chronic Hep C chronic diarrhea, etiology 2/2 Crohns; DDx: infectous vs IBS, r/o celiacs Plan: -recommend abd U/s r/o biliary etiology -can proceed with CT abd/pel w/ IV and PO contrast tomorrow, give reglan prior -continue PPI -start carafate -recommend follow-up with her outpt GI -needs to also follow-up with GI or [facility] for Hep C treatment -diet as tolerated -zofran PRN discusses and seen w/ Dr. Zamarripa <Walt Zamarripa V - Last Filed: 12/07/17 23:58> Meds - Medications Medications: Current Medications Albuterol/Ipratropium (Duoneb 3 Mg/0.5 Mg (3 Ml) Ud) 3 ml IH Q2H PRN PRN Reason: Shortness of Breath Last Admin: 12/04/17 17:34 Dose: 3 ml Albuterol/Ipratropium (Duoneb 3 Mg/0.5 Mg (3 Ml) Ud) 3 ml IH [id number] [facility] Last Admin: 12/07/17 20:21 Dose: 3 ml Amlodipine Besylate (Norvasc) 10 mg PO DAILY [facility] Last Admin: 12/07/17 09:33 Dose: 10 mg Atorvastatin Calcium (Lipitor) 20 mg PO DIN [facility] Last Admin: 12/07/17 17:26 Dose: 20 mg Clonazepam (Klonopin) 0.5 mg PO TID [facility]; Protocol Last Admin: 12/07/17 17:26 Dose: 0.5 mg Azithromycin (Zithromax 500mg In Ns) 500 mg in 250 mls @ 167 mls/hr IVPB DAILY [facility]; Protocol Last Admin: 12/07/17 09:33 Dose: 167 mls/hr Ceftriaxone Sodium (Rocephin 1 Gram Ivpb) 1 gm in 100 mls @ 100 mls/hr IVPB DAILY [facility]; Protocol Stop: 12/08/17 10:59 Last Admin: 12/07/17 09:33 Dose: 100 mls/hr Levothyroxine Sodium (Synthroid) 175 mcg PO ACB [facility] Last Admin: 12/07/17 08:23 Dose: 175 mcg Magnesium Hydroxide (Milk Of Magnesia) 30 ml PO DAILY PRN PRN Reason: Constipation Last Admin: 12/06/17 19:10 Dose: 30 ml Methylprednisolone (Solu-Medrol) 40 mg IVP Q12 [facility] Last Admin: 12/07/17 21:57 Dose: 40 mg Nortriptyline HCl (Pamelor) 25 mg PO HS [facility] Last Admin: 12/07/17 21:57 Dose: 25 mg Ondansetron HCl (Zofran Inj) 4 mg IVP Q6H PRN PRN Reason: Nausea/Vomiting Oxycodone/Acetaminophen (Percocet 10/325 Mg Tab) 1 tab PO BID PRN PRN Reason: pain Last Admin: 12/07/17 20:37 Dose: 1 tab Pantoprazole Sodium (Protonix Ec Tab) 40 mg PO 0630 [facility] Last Admin: 12/07/17 06:47 Dose: 40 mg Sucralfate (Carafate Oral Susp) 1 gm PO 0600,1600 [facility] Last Admin: 12/07/17 19:56 Dose: Not Given Trazodone HCl (Desyrel) 50 mg PO HS [facility] Last Admin: 12/07/17 21:57 Dose: 50 mg Results - Vital Signs Recent Vital Signs: Last Vital Signs Temp 97.7 F 12/07/17 14:00 Pulse 71 12/07/17 14:00 Resp 18 12/07/17 14:00 BP 125/86 12/07/17 14:00 Pulse Ox 95 12/07/17 14:00 - Labs Result Diagrams: 12/05/17 07:30 12/05/17 07:30 Attending/Attestation - Attestation I have personally seen and examined this patient.: Yes I have fully participated in the care of the patient.: Yes I have reviewed all pertinent clinical information: Yes Notes (Text): This is an addendum to GI consult report dictated by the GI Fellow.The patient was seen and examined earlier. Medical records, lab studies, imagings were reviewed. Last 24 hours events reviewed. Agreed with the above treatment plan as outlined in GI Fellow 's notes with the addition of the following This patient had a gastric sleeve surgery done in September Ever since she has been having more problems with her bowl Abdominal bloating History of asthma since childhood Worsening of the asthma symptoms since sleeve surgery History of Hep C not on treatment History of chronic pain symptoms on percocet Patient has history of chronic pain and diarrhea evaluated by GI Dr. Mayes Patient did not followup with GI over last two years Last endoscopy and colonoscopy was two years ago Patient has mildly elevated LFT 1. Recommendation were ultrasound scan of the abdomen 2. CT scan of the abdomen with PO and iv contrast to further evaluate weight lose and further rule out occult neoplasia Would also request Hepatitis C viral load 12/07/17 23:49
[2017-12-07] MEDS: MethylPREDNISolone 40 mg Vial IVP SCH ×2 (09:34→21:57)
[2017-12-07] MEDS: Sucralfate 1 gm/10 ml Oral Susp UD PO SCH ×2 (17:26→19:56)
--- NOTE | 2017-12-07 20:48 | PN ---
DATE: 12/07/2017 SUBJECTIVE: The patient is 52 years old, seen and examined. Still has cough, congestion, wheezing. She was evaluated by Dr. Zamarripa, his feeling is that this is because of chronic GERD along with asthma causing her bilateral intense wheezing. PHYSICAL EXAMINATION: GENERAL: She looks uncomfortable. VITAL SIGNS: She is afebrile, pulse 71, respirations 18, blood pressure 125/86. LUNGS: Bilateral expiratory rhonchi. HEART: S1 and S2 audible. ABDOMEN: Soft. Nontender. No rebound. No guarding. NEUROLOGICAL: She is awake, alert, oriented and communicative. LABORATORY EXAM: WBC is 14.4, hemoglobin 14.4, hematocrit 41.9, platelet of 326. Chemistry: Blood sugar is 126. ASSESSMENT: 1. Bilateral dense wheezing. 2. Asthmatic bronchitis. 3. Gastroesophageal reflux disease. 4. Status post sleeve procedure. 5. History of anxiety. 6. History of hepatitis C. 7. Hypothyroidism. PLAN: We will order the CT of the abdomen and pelvis with p.o. contrast to be done tomorrow. We will continue her on IV steroids and nebulizer treatment. We will follow up the patient in the a.m. Holger Coreas MD
[2017-12-08] MEDS: Albuterol-Ipratrop 3 mg / 0.5 (3 ml) UD IH SCH ×4 (05:03→21:00)
[2017-12-08] MEDS: Pantoprazole 40 mg EC Tab PO SCH (05:42)
[2017-12-08] MEDS: Levothyroxine 175 MCG TAB PO SCH (07:59)
[2017-12-08] MEDS: Oxycodone/Acetaminophen 10/325 mg Tab PO PRN ×2 (08:18→21:45)
[2017-12-08] MEDS: cefTRIAXone 1 gm 1 GM/100 ML BAG IVPB SCH (09:35)
[2017-12-08] MEDS: Azithromycin 500MG/NS 250ml 500 MG/250 ML BAG IVPB SCH (09:35)
[2017-12-08] MEDS: MethylPREDNISolone 40 mg Vial IVP SCH ×2 (09:37→21:40)
--- NOTE | 2017-12-08 10:15 | CP.PCM.PN ---
<Daniel Magallanes - Last Filed: 12/08/17 14:36> Subjective - Date & Time of Evaluation Date of Evaluation: 12/08/17 Time of Evaluation: 10:12 - Subjective Subjective: Anson Magallanes PGY2 IM Resident - GI Progress Note Dr. Zamarripa Patient seen and examined. Patient reports vomiting and diarrhea like episode. Patient to go for abdominal/pelvis CT today. Patient indicates shortness of breath improved from admission. Objective - Vital Signs/Intake and Output Vital Signs (last 24 hours): Temp Pulse Resp BP Pulse Ox 97.3 F L 65 20 127/84 95 12/08/17 06:00 12/08/17 06:00 12/08/17 06:00 12/08/17 09:35 12/08/17 06:00 Intake and Output: 12/08/17 12/08/17 06:59 18:59 Intake Total 710 Balance 710 - Medications Medications: Current Medications Albuterol/Ipratropium (Duoneb 3 Mg/0.5 Mg (3 Ml) Ud) 3 ml IH Q2H PRN PRN Reason: Shortness of Breath Last Admin: 12/04/17 17:34 Dose: 3 ml Albuterol/Ipratropium (Duoneb 3 Mg/0.5 Mg (3 Ml) Ud) 3 ml IH [id number] [facility] Last Admin: 12/08/17 08:18 Dose: 3 ml Amlodipine Besylate (Norvasc) 10 mg PO DAILY [facility] Last Admin: 12/08/17 09:35 Dose: 10 mg Atorvastatin Calcium (Lipitor) 20 mg PO DIN [facility] Last Admin: 12/07/17 17:26 Dose: 20 mg Clonazepam (Klonopin) 0.5 mg PO TID [facility]; Protocol Last Admin: 12/08/17 09:34 Dose: 0.5 mg Azithromycin (Zithromax 500mg In Ns) 500 mg in 250 mls @ 167 mls/hr IVPB DAILY [facility]; Protocol Last Admin: 12/08/17 09:35 Dose: 167 mls/hr Ceftriaxone Sodium (Rocephin 1 Gram Ivpb) 1 gm in 100 mls @ 100 mls/hr IVPB DAILY [facility]; Protocol Stop: 12/08/17 10:59 Last Admin: 12/08/17 09:35 Dose: 100 mls/hr Levothyroxine Sodium (Synthroid) 175 mcg PO ACB [facility] Last Admin: 12/08/17 07:59 Dose: 175 mcg Magnesium Hydroxide (Milk Of Magnesia) 30 ml PO DAILY PRN PRN Reason: Constipation Last Admin: 12/06/17 19:10 Dose: 30 ml Methylprednisolone (Solu-Medrol) 40 mg IVP Q12 [facility] Last Admin: 12/08/17 09:37 Dose: 40 mg Nortriptyline HCl (Pamelor) 25 mg PO [facility] Last Admin: 12/07/17 21:57 Dose: 25 mg Ondansetron HCl (Zofran Inj) 4 mg IVP Q6H PRN PRN Reason: Nausea/Vomiting Oxycodone/Acetaminophen (Percocet 10/325 Mg Tab) 1 tab PO BID PRN PRN Reason: pain Last Admin: 12/08/17 08:18 Dose: 1 tab Pantoprazole Sodium (Protonix Ec Tab) 40 mg PO 0630 [facility] Last Admin: 12/08/17 05:42 Dose: 40 mg Sucralfate (Carafate Oral Susp) 1 gm PO 0600,1600 [facility] Last Admin: 12/07/17 19:56 Dose: Not Given Trazodone HCl (Desyrel) 50 mg PO [facility] Last Admin: 12/07/17 21:57 Dose: 50 mg - Labs Labs: 12/05/17 07:30 12/05/17 07:30 PT 11.7 SECONDS (9.4-12.5) 12/04/17 11:54 INR 1.02 12/04/17 11:54 APTT 29.8 Seconds (25.1-36.5) 12/04/17 11:54 - Head Exam Head Exam: ATRAUMATIC, NORMAL INSPECTION, NORMOCEPHALIC - Eye Exam Eye Exam: EOMI, PERRL - ENT Exam ENT Exam: Mucous Membranes Moist - Respiratory Exam Respiratory Exam: Wheezes - Cardiovascular Exam Cardiovascular Exam: REGULAR RHYTHM, +S1, +S2 - GI/Abdominal Exam GI & Abdominal Exam: Soft, Normal Bowel Sounds - Neurological Exam Neurological Exam: Alert, Awake, Oriented x3 - Psychiatric Exam Psychiatric exam: Normal Affect, Normal Mood - Skin Skin Exam: Dry, Intact Assessment and Plan - Assessment and Plan (Free Text) Assessment: 52 year old female with PMH of gastric sleeve, chronic diarrhea, HEP c and ?Crohn presenting to ED with shortness of breath Plan: Abdominal Pain Transamintiis likely 2/2 Hep C Chronic diarrhea likely 2/2 Crohns vs. IBS vs celiacs - continue recommendation Abdominal US - CT abd/Pelvis with contrast - Continue carafate, PPI - Follow up with [facility] for Hep C treatment - Advance diet as tolerated - Further recommendations per Dr. Zamarripa <Walt Zamarripa V - Last Filed: 12/08/17 23:14> Objective - Vital Signs/Intake and Output Vital Signs (last 24 hours): Temp Pulse Resp BP Pulse Ox 97.9 F 80 20 129/98 H 96 12/08/17 14:00 12/08/17 14:00 12/08/17 14:00 12/08/17 14:00 12/08/17 14:00 Intake and Output: 12/08/17 12/09/17 18:59 06:59 Intake Total 620 Balance 620 - Medications Medications: Current Medications Albuterol/Ipratropium (Duoneb 3 Mg/0.5 Mg (3 Ml) Ud) 3 ml IH Q2H PRN PRN Reason: Shortness of Breath Last Admin: 12/04/17 17:34 Dose: 3 ml Albuterol/Ipratropium (Duoneb 3 Mg/0.5 Mg (3 Ml) Ud) 3 ml IH [id number] [facility] Last Admin: 12/08/17 21:00 Dose: 3 ml Amlodipine Besylate (Norvasc) 10 mg PO DAILY [facility] Last Admin: 12/08/17 09:35 Dose: 10 mg Atorvastatin Calcium (Lipitor) 20 mg PO DIN [facility] Last Admin: 12/08/17 16:51 Dose: 20 mg Clonazepam (Klonopin) 0.5 mg PO TID [facility]; Protocol Last Admin: 12/08/17 18:23 Dose: 0.5 mg Azithromycin (Zithromax 500mg In Ns) 500 mg in 250 mls @ 167 mls/hr IVPB DAILY [facility]; Protocol Last Admin: 12/08/17 09:35 Dose: 167 mls/hr Levothyroxine Sodium (Synthroid) 175 mcg PO ACB [facility] Last Admin: 12/08/17 07:59 Dose: 175 mcg Magnesium Hydroxide (Milk Of Magnesia) 30 ml PO DAILY PRN PRN Reason: Constipation Last Admin: 12/06/17 19:10 Dose: 30 ml Methylprednisolone (Solu-Medrol) 40 mg IVP Q12 [facility] Last Admin: 12/08/17 21:40 Dose: 40 mg Nortriptyline HCl (Pamelor) 25 mg PO HS [facility] Last Admin: 12/08/17 21:40 Dose: 25 mg Ondansetron HCl (Zofran Inj) 4 mg IVP Q6H PRN PRN Reason: Nausea/Vomiting Oxycodone/Acetaminophen (Percocet 10/325 Mg Tab) 1 tab PO BID PRN PRN Reason: pain Last Admin: 12/08/17 21:45 Dose: 1 tab Pantoprazole Sodium (Protonix Ec Tab) 40 mg PO 0630 [facility] Last Admin: 12/08/17 05:42 Dose: 40 mg Sucralfate (Carafate Oral Susp) 1 gm PO 0600,1600 [facility] Last Admin: 12/08/17 16:29 Dose: 1 gm Trazodone HCl (Desyrel) 50 mg PO HS [facility] Last Admin: 12/08/17 22:44 Dose: 50 mg - Labs Labs: 12/05/17 07:30 12/05/17 07:30 PT 11.7 SECONDS (9.4-12.5) 12/04/17 11:54 INR 1.02 12/04/17 11:54 APTT 29.8 Seconds (25.1-36.5) 12/04/17 11:54 Attending/Attestation - Attestation I have personally seen and examined this patient.: Yes I have fully participated in the care of the patient.: Yes I have reviewed all pertinent clinical information, including history, physical exam and plan: Yes Notes (Text): This is an addendum to GI followup report dictated by the Fire Alarm Dispatcher. The patient was seen and evaluated earlier. Medical records, lab studies, imagings were reviewed. Last 24 hours events reviewed. Agreed with the above treatment plan as outlined in Fire Alarm Dispatcher 's notes with the addition of the following Ct scan was reviewed Patient is still wheezing Would benefit from upper Gi endoscopy if the patient respiratory status improves Clearly this patient needs long-term GI management Followup IBD serology History of chronic diarrhea with abdomen pain Rule out quiescent IBD 12/08/17 23:10
[2017-12-08] MEDS ORDERED: Barium Sulfate Susp 2.1% w/v, 2.0% w/w 450 mL Bottle PO ONE (10:45)
[2017-12-08] MEDS ORDERED: Iohexol 350 MG/100 ML VIAL ONE (10:57)
--- NOTE | 2017-12-08 12:52 | PN ---
DATE: 12/08/2017 SUBJECTIVE: The patient is 52 years old, seen and examined. Still has cough, congestion, wheezing. Vomited this morning. Unable to hold food. She has been started on pureed food. PHYSICAL EXAMINATION: VITAL SIGNS: She is afebrile, pulse 65, respirations 20, blood pressure 127/84. LUNGS: Bilateral wheezing. HEART: S1 and S2 audible. ABDOMEN: Soft. Nontender. No rebound. No guarding. NEUROLOGICAL: The patient is awake, alert, oriented, able to communicate. LABORATORY EXAM: WBC is 14.4, hemoglobin 14.4, hematocrit 41, platelet 326. Chemistry: Blood sugar is 126. ASSESSMENT: 1. Asthmatic bronchitis, probably a gastroesophageal reflux disease. 2. Status post recent stapling by bariatric surgeon. 3. History of hepatitis C. 4. Anxiety disorder. 5. Hypothyroidism. PLAN: We will continue her on Carafate. She is on nebulizer treatment. She is on Klonopin. She is getting IV steroid. I will discuss with Dr. Zamarripa. We will order CT scan of the abdomen and pelvis with p.o. and IV contrast and we will make further recommendation once the facility is available. Holger Coreas MD
--- NOTE | 2017-12-08 14:33 | CT ---
Date of service: 12/08/2017 PROCEDURE: CT Abdomen and Pelvis with contrast HISTORY: s/p gastric stappling COMPARISON: 01/13/2017 TECHNIQUE: Contrast dose: 100 cc of Omni 350 Radiation dose: Total exam DLP = 958 mGy-cm. This CT exam was performed using one or more of the following dose reduction techniques: Automated exposure control, adjustment of the mA and/or kV according to patient size, and/or use of iterative reconstruction technique. FINDINGS: LOWER THORAX: Unremarkable. LIVER: Unremarkable. No gross lesion or ductal dilatation. GALLBLADDER AND BILE DUCTS: Unremarkable. PANCREAS: Unremarkable. No gross lesion or ductal dilatation. SPLEEN: Unremarkable. ADRENALS: Unremarkable. No mass. KIDNEYS AND URETERS: Unremarkable. No hydronephrosis. No solid mass. VASCULATURE: Unremarkable. No aortic aneurysm. BOWEL: There is severe constipation. A suture line is seen along the stomach. There are no complicating factors. APPENDIX: Normal appendix. PERITONEUM: Unremarkable. No free fluid. No free air. LYMPH NODES: Unremarkable. No enlarged lymph nodes. BLADDER: Unremarkable. REPRODUCTIVE: Unremarkable. BONES: No acute fracture. OTHER FINDINGS: None. IMPRESSION: There is severe constipation. A suture line is seen along the stomach. There are no complicating factors.
[2017-12-08] MEDS: Sucralfate 1 gm/10 ml Oral Susp UD PO SCH (16:29)
[2017-12-08] MEDS ORDERED: Peg-Electrolyte Oral Soln 4L (Golytely) PO ONE (18:47)
[2017-12-09] MEDS: Albuterol-Ipratrop 3 mg / 0.5 (3 ml) UD IH SCH ×4 (05:18→20:02)
[2017-12-09] MEDS: Pantoprazole 40 mg EC Tab PO SCH (05:49)
[2017-12-09] MEDS: Sucralfate 1 gm/10 ml Oral Susp UD PO SCH ×2 (05:49→17:42)
[2017-12-09] MEDS: Oxycodone/Acetaminophen 10/325 mg Tab PO PRN ×2 (06:03→19:05)
--- NOTE | 2017-12-09 10:39 | US ---
Date of service: 12/09/2017 HISTORY: evaluation of small bowel, gallstones, gallbladder COMPARISON: CT abdomen and pelvis from 12/08/2017. TECHNIQUE: Grayscale imaging was performed. FINDINGS: LIVER: Measures 19.6 cm. There is diffuse increased echogenicity of the liver parenchyma. No mass. No intrahepatic bile duct dilatation. GALLBLADDER: There are presumable small gallstones. No wall thickening or pericholecystic fluid. The sonographic Interiano's sign is negative. COMMON BILE DUCT: Measures 4.6 mm. No stones. No dilatation. PANCREAS: Unremarkable as visualized. No mass. No ductal dilatation. RIGHT KIDNEY: Measures 11.4cm. Normal echogenicity. No calculus, mass, or hydronephrosis. LEFT KIDNEY: Measures 11.5cm. Normal echogenicity. There is a 4 mm nonobstructing stone in the interpolar region. No mass or hydronephrosis. SPLEEN: Normal in size and contour. No mass. AORTA: No aneurysmal dilatation. IVC: Unremarkable. OTHER FINDINGS: None. IMPRESSION: Suspect small gallstones. No biliary dilatation. 4 mm nonobstructing stone in the interpolar region of the left kidney. Mild hepatomegaly. Diffuse increased echogenicity in the liver may reflect hepatic steatosis however parenchymal infectious/ inflammatory etiologies cannot be entirely excluded. Clinical and laboratory correlation is advised.
[2017-12-09] MEDS: MethylPREDNISolone 40 mg Vial IVP SCH ×2 (10:51→21:38)
[2017-12-09] MEDS: Levothyroxine 175 MCG TAB PO SCH (10:53)
[2017-12-09] MEDS: Azithromycin 500MG/NS 250ml 500 MG/250 ML BAG IVPB SCH (11:35)
--- NOTE | 2017-12-09 13:59 | CP.PCM.PN ---
<Daniel Magallanes - Last Filed: 12/09/17 13:53> Subjective - Date & Time of Evaluation Date of Evaluation: 12/09/17 Time of Evaluation: 13:53 - Subjective Subjective: GI Progress Note for Dr. Zamarripa Patient seen and examined this AM. No acute events reported overnight. Patient indicates respiratory effort improved from admission. Patient indicates she has consumed liquid diet today. Patient indicates 12 point ROS benign other than mentioned in HPI Objective - Vital Signs/Intake and Output Vital Signs (last 24 hours): Temp Pulse Resp BP Pulse Ox 97.6 F 70 20 153/97 H 98 12/09/17 08:35 12/09/17 08:35 12/09/17 08:35 12/09/17 10:51 12/09/17 08:35 Intake and Output: 12/09/17 12/09/17 06:59 18:59 Intake Total 250 180 Balance 250 180 - Medications Medications: Current Medications Albuterol/Ipratropium (Duoneb 3 Mg/0.5 Mg (3 Ml) Ud) 3 ml IH Q2H PRN PRN Reason: Shortness of Breath Last Admin: 12/04/17 17:34 Dose: 3 ml Albuterol/Ipratropium (Duoneb 3 Mg/0.5 Mg (3 Ml) Ud) 3 ml IH [id number] [facility] Last Admin: 12/09/17 07:55 Dose: Not Given Amlodipine Besylate (Norvasc) 10 mg PO DAILY [facility] Last Admin: 12/09/17 10:51 Dose: 10 mg Atorvastatin Calcium (Lipitor) 20 mg PO DIN [facility] Last Admin: 12/08/17 16:51 Dose: 20 mg Clonazepam (Klonopin) 0.5 mg PO TID [facility]; Protocol Last Admin: 12/09/17 10:50 Dose: 0.5 mg Azithromycin (Zithromax 500mg In Ns) 500 mg in 250 mls @ 167 mls/hr IVPB DAILY [facility]; Protocol Last Admin: 12/09/17 11:35 Dose: 167 mls/hr Levothyroxine Sodium (Synthroid) 175 mcg PO ACB [facility] Last Admin: 12/09/17 10:53 Dose: 175 mcg Magnesium Hydroxide (Milk Of Magnesia) 30 ml PO DAILY PRN PRN Reason: Constipation Last Admin: 12/06/17 19:10 Dose: 30 ml Methylprednisolone (Solu-Medrol) 30 mg IVP Q12 [facility] Nortriptyline HCl (Pamelor) 25 mg PO HS [facility] Last Admin: 12/08/17 21:40 Dose: 25 mg Ondansetron HCl (Zofran Inj) 4 mg IVP Q6H PRN PRN Reason: Nausea/Vomiting Oxycodone/Acetaminophen (Percocet 10/325 Mg Tab) 1 tab PO BID PRN PRN Reason: pain Last Admin: 12/09/17 06:03 Dose: 1 tab Pantoprazole Sodium (Protonix Ec Tab) 40 mg PO 0630 [facility] Last Admin: 12/09/17 05:49 Dose: 40 mg Sucralfate (Carafate Oral Susp) 1 gm PO 0600,1600 [facility] Last Admin: 12/09/17 05:49 Dose: 1 gm Trazodone HCl (Desyrel) 50 mg PO [facility] Last Admin: 12/08/17 22:44 Dose: 50 mg - Labs Labs: 12/05/17 07:30 12/05/17 07:30 PT 11.7 SECONDS (9.4-12.5) 12/04/17 11:54 INR 1.02 12/04/17 11:54 APTT 29.8 Seconds (25.1-36.5) 12/04/17 11:54 - Constitutional Appears: No Acute Distress - Head Exam Head Exam: ATRAUMATIC, NORMAL INSPECTION, NORMOCEPHALIC - Eye Exam Eye Exam: EOMI, PERRL - ENT Exam ENT Exam: Mucous Membranes Moist - Respiratory Exam Respiratory Exam: Wheezes (minimal left sided > right sided ), NORMAL BREATHING PATTERN - Cardiovascular Exam Cardiovascular Exam: REGULAR RHYTHM, +S1, +S2 - GI/Abdominal Exam GI & Abdominal Exam: Soft, Normal Bowel Sounds. absent: Tenderness - Extremities Exam Extremities Exam: Full ROM. absent: Calf Tenderness, Pedal Edema - Neurological Exam Neurological Exam: Alert, Awake, Normal Gait, Oriented x3 Neuro motor strength exam: Left Upper Extremity: 5, Left Lower Extremity: 5, Right Lower Extremity: 5 - Psychiatric Exam Psychiatric exam: Normal Affect, Normal Mood - Skin Skin Exam: Dry, Intact Assessment and Plan - Assessment and Plan (Free Text) Assessment: 52 year old female with PMH of gastric sleeve, chronic diarrhea, HEP c and ?Crohn presenting to ED with shortness of breath. Patient with continual nasuea and vomiting on presentation as well as diarrhea. Patient asymptomatic for past 24 hours able to tolerate diet. Patient for possible endoscopy tomorrow Plan: Abdominal Pain Transamintiis likely 2/2 Hep C untreated Chronic diarrhea likely 2/2 Crohns vs. IBS vs celiacs - continue recommendation Abdominal US showing mild hepatomegaly, suspected small gallstones without biliary dilatation, diffuse increased echogenicity in the liver may reflect hepatic steatosis - CT abd/Pelvis with contrast showing no signifianct intestinal abnormalitiy, presence of gallstones - Continue carafate, PPI - Follow up with [facility] for Hep C treatment upon discharge - NPO after midngith for EGD tomorrow AM - Further recommendations per Dr. Zamarripa <Walt Zamarripa V - Last Filed: 12/10/17 00:33> Objective - Vital Signs/Intake and Output Vital Signs (last 24 hours): Temp Pulse Resp BP Pulse Ox 97.7 F 71 20 124/72 98 12/09/17 14:00 12/09/17 14:00 12/09/17 14:00 12/09/17 14:00 12/09/17 14:00 Intake and Output: 12/09/17 12/10/17 18:59 06:59 Intake Total 180 Balance 180 - Medications Medications: Current Medications Albuterol/Ipratropium (Duoneb 3 Mg/0.5 Mg (3 Ml) Ud) 3 ml IH Q2H PRN PRN Reason: Shortness of Breath Last Admin: 12/04/17 17:34 Dose: 3 ml Albuterol/Ipratropium (Duoneb 3 Mg/0.5 Mg (3 Ml) Ud) 3 ml IH [id number] [facility] Last Admin: 12/09/17 20:02 Dose: 3 ml Amlodipine Besylate (Norvasc) 10 mg PO DAILY [facility] Last Admin: 12/09/17 10:51 Dose: 10 mg Atorvastatin Calcium (Lipitor) 20 mg PO DIN [facility] Last Admin: 12/09/17 17:42 Dose: 20 mg Clonazepam (Klonopin) 0.5 mg PO TID [facility]; Protocol Last Admin: 12/09/17 17:42 Dose: 0.5 mg Azithromycin (Zithromax 500mg In Ns) 500 mg in 250 mls @ 167 mls/hr IVPB DAILY [facility]; Protocol Last Admin: 12/09/17 11:35 Dose: 167 mls/hr Levothyroxine Sodium (Synthroid) 175 mcg PO ACB [facility] Last Admin: 12/09/17 10:53 Dose: 175 mcg Magnesium Hydroxide (Milk Of Magnesia) 30 ml PO DAILY PRN PRN Reason: Constipation Last Admin: 12/06/17 19:10 Dose: 30 ml Methylprednisolone (Solu-Medrol) 30 mg IVP Q12 [facility] Last Admin: 12/09/17 21:38 Dose: 30 mg Nortriptyline HCl (Pamelor) 25 mg PO HS [facility] Last Admin: 12/09/17 21:47 Dose: 25 mg Ondansetron HCl (Zofran Inj) 4 mg IVP Q6H PRN PRN Reason: Nausea/Vomiting Oxycodone/Acetaminophen (Percocet 10/325 Mg Tab) 1 tab PO BID PRN PRN Reason: pain Last Admin: 12/09/17 19:05 Dose: 1 tab Pantoprazole Sodium (Protonix Ec Tab) 40 mg PO 0630 [facility] Last Admin: 12/09/17 05:49 Dose: 40 mg Sucralfate (Carafate Oral Susp) 1 gm PO 0600,1600 [facility] Last Admin: 12/09/17 17:42 Dose: 1 gm Trazodone HCl (Desyrel) 50 mg PO HS [facility] Last Admin: 12/09/17 21:39 Dose: 50 mg - Labs Labs: 12/05/17 07:30 12/05/17 07:30 PT 11.7 SECONDS (9.4-12.5) 12/04/17 11:54 INR 1.02 12/04/17 11:54 APTT 29.8 Seconds (25.1-36.5) 12/04/17 11:54 Attending/Attestation - Attestation I have personally seen and examined this patient.: Yes I have fully participated in the care of the patient.: Yes I have reviewed all pertinent clinical information, including history, physical exam and plan: Yes Notes (Text): This is an addendum to GI followup report dictated by the Field Marketing Manager. The patient was seen and evaluated earlier. Medical records, lab studies, imagings were reviewed. Last 24 hours events reviewed. Agreed with the above treatment plan as outlined in Field Marketing Manager 's notes with the addition of the following Patient is scheduled for EGD today which was canceled due to pulmonary status On examination patient has mild tenderness in the epigastric area She has multiple problems which include status post sleeve gastrectomy History of chronic diarrhea abdominal pain ?IBD Discussed with the patient at length Patient is scheduled for EGD in AM if pulmonary status improves 12/10/17 00:31
--- NOTE | 2017-12-09 14:47 | PN ---
DATE: 12/09/2017 SUBJECTIVE: The patient is 52 years old, seen and examined, still has cough, congestion, wheezing. She had CT scan of the abdomen and pelvis done that shows constipation. Has been on laxative since yesterday. The patient states she had 5 big bowel movement. She seems to be doing better. PHYSICAL EXAMINATION: VITAL SIGNS: She is afebrile, pulse 70, respirations 20, blood pressure 153/97. LUNGS: Bilateral good airflow. Bilateral expiratory rhonchi. HEART: S1 and S2 audible. ABDOMEN: Soft. Nontender. No rebound. No guarding. NEUROLOGICAL: The patient is awake and alert, able to communicate. LABORATORY EXAM: Blood sugar is 126. She had CT scan of the abdomen and pelvis that shows severe constipation. Abdominal sonogram shows small gallstone. No biliary dilatation. A 4 mm nonobstructing stone in the interpolar region of the left kidney. Diffuse increased echogenicity in the liver. ASSESSMENT: 1. Asthma exacerbation. 2. Recent gastric stapling. 3. Severe constipation. 4. History of hepatitis C. 5. Hyperglycemia, probably secondary to steroid. PLAN: We will continue the patient on current medications. We will discuss with GI. As per the patient, there is a plan to have biopsy done to rule out Crohn's. I will discuss with Dr. Zamarripa. Holger Coreas MD
[2017-12-10] MEDS: Albuterol-Ipratrop 3 mg / 0.5 (3 ml) UD IH SCH ×4 (01:56→19:22)
[2017-12-10] MEDS: Pantoprazole 40 mg EC Tab PO SCH (06:41)
[2017-12-10] MEDS: Sucralfate 1 gm/10 ml Oral Susp UD PO SCH ×2 (06:42→17:00)
[2017-12-10] MEDS: Levothyroxine 175 MCG TAB PO SCH (06:42)
[2017-12-10] MEDS: Oxycodone/Acetaminophen 10/325 mg Tab PO PRN ×2 (08:41→18:11)
[2017-12-10] MEDS: MethylPREDNISolone 40 mg Vial IVP SCH ×2 (09:21→21:14)
[2017-12-10] MEDS: Azithromycin 500MG/NS 250ml 500 MG/250 ML BAG IVPB SCH (09:25)
--- NOTE | 2017-12-10 13:27 | PN ---
DATE: 12/10/2017 SUBJECTIVE: The patient is 52 years old, seen and examined. Still has cough, congestion, and wheezing. The patient has n.p.o. to have endoscopy done. PHYSICAL EXAMINATION GENERAL: She is awake, alert, oriented, and communicative. VITAL SIGNS: She is afebrile, pulse 56, respirations 18, blood pressure 133/90. LUNGS: Bilateral expiratory rhonchi. HEART: S1, S2 audible. ABDOMEN: Soft, nontender. No rebound, no guarding. NEUROLOGIC: The patient is awake, alert, oriented, and communicative. LABORATORY DATA: Blood sugar is 126. ASSESSMENT: 1. Asthmatic bronchitis. 2. Bilateral wheezing and bronchospasm. 3. Recent gastric stapling. 4. Hepatitis C. 5. History of anxiety disorder. PLAN: The patient is currently n.p.o. We will continue her on IV fluid, nebulizer treatment, and IV steroid. She is going for endoscopy . Holger Coreas MD
--- NOTE | 2017-12-10 14:09 | RAD ---
Date of service: 12/10/2017 HISTORY: Preop. COMPARISON: 04/01/2017. FINDINGS: LUNGS: No active pulmonary disease. PLEURA: No significant pleural effusion identified, no pneumothorax apparent. CARDIOVASCULAR: Normal. OSSEOUS STRUCTURES: No significant abnormalities. VISUALIZED UPPER ABDOMEN: Normal. OTHER FINDINGS: None. IMPRESSION: No active disease. No significant interval change compared to the prior examination(s).
[2017-12-10] MEDS ORDERED: Propofol 10 mg/ml Inj (20 ML) ONE ×2 (15:11→15:12)
[2017-12-10] MEDS ORDERED: Lidocaine 1% Inj (20ml) ONE (15:12)
[2017-12-10] MEDS ORDERED: Sodium Chloride 0.9% 1,000 ML IV SCH (16:00)
[2017-12-11] MEDS: Albuterol-Ipratrop 3 mg / 0.5 (3 ml) UD IH SCH ×3 (01:52→14:35)
[2017-12-11] MEDS: Sucralfate 1 gm/10 ml Oral Susp UD PO SCH (06:28)
[2017-12-11] MEDS: Pantoprazole 40 mg EC Tab PO SCH (06:28)
[2017-12-11] MEDS: Levothyroxine 175 MCG TAB PO SCH (06:29)
[2017-12-11] MEDS: Oxycodone/Acetaminophen 10/325 mg Tab PO PRN ×2 (06:30→11:23)
--- NOTE | 2017-12-11 07:48 | CP.PCM.PN ---
<Daniel Magallanes - Last Filed: 12/11/17 07:42> Subjective - Date & Time of Evaluation Date of Evaluation: 12/11/17 Time of Evaluation: 07:43 - Subjective Subjective: GI PROGRESS NOTE FOR DR. SANDRO MAGALLANES PGY2 Patient seen and examined this AM. No acute events reported overnight. Patient indicates she is able to tolerate her liquid diet at this point but does continue to feel as if her stomach is not emptying what she takes in. She denies nausea, vomiting, diarrhea, constipation, fever, chills. She is concerned about the advancement of her diet from liquids to solids going forward. Objective - Vital Signs/Intake and Output Vital Signs (last 24 hours): Temp Pulse Resp BP Pulse Ox 97.6 F 58 L 15 141/92 H 95 12/10/17 16:35 12/10/17 16:35 12/10/17 16:35 12/10/17 16:35 12/10/17 16:35 - Medications Medications: Current Medications Albuterol/Ipratropium (Duoneb 3 Mg/0.5 Mg (3 Ml) Ud) 3 ml IH Q2H PRN PRN Reason: Shortness of Breath Last Admin: 12/04/17 17:34 Dose: 3 ml Albuterol/Ipratropium (Duoneb 3 Mg/0.5 Mg (3 Ml) Ud) 3 ml IH [id number] [facility] Last Admin: 12/11/17 01:52 Dose: 3 ml Amlodipine Besylate (Norvasc) 10 mg PO DAILY [facility] Last Admin: 12/10/17 09:21 Dose: Not Given Atorvastatin Calcium (Lipitor) 20 mg PO DIN [facility] Last Admin: 12/10/17 17:00 Dose: 20 mg Clonazepam (Klonopin) 0.5 mg PO TID [facility]; Protocol Last Admin: 12/10/17 21:14 Dose: 0.5 mg Sodium Chloride (Sodium Chloride 0.9%) 1,000 mls @ 100 mls/hr IV .Q10H [facility] Last Admin: 12/10/17 17:01 Dose: 100 mls/hr Levothyroxine Sodium (Synthroid) 175 mcg PO ACB [facility] Last Admin: 12/11/17 06:29 Dose: 175 mcg Magnesium Hydroxide (Milk Of Magnesia) 30 ml PO DAILY PRN PRN Reason: Constipation Last Admin: 12/06/17 19:10 Dose: 30 ml Methylprednisolone (Solu-Medrol) 30 mg IVP Q12 [facility] Last Admin: 12/10/17 21:14 Dose: 30 mg Nortriptyline HCl (Pamelor) 25 mg PO HS [facility] Last Admin: 12/10/17 21:14 Dose: 25 mg Ondansetron HCl (Zofran Inj) 4 mg IVP Q6H PRN PRN Reason: Nausea/Vomiting Oxycodone/Acetaminophen (Percocet 10/325 Mg Tab) 1 tab PO BID PRN PRN Reason: pain Last Admin: 12/11/17 06:30 Dose: 1 tab Pantoprazole Sodium (Protonix Ec Tab) 40 mg PO 0630 [facility] Last Admin: 12/11/17 06:28 Dose: 40 mg Sucralfate (Carafate Oral Susp) 1 gm PO 0600,1600 [facility] Last Admin: 12/11/17 06:28 Dose: 1 gm Trazodone HCl (Desyrel) 50 mg PO [facility] Last Admin: 12/10/17 21:14 Dose: 50 mg - Labs Labs: 12/05/17 07:30 12/05/17 07:30 PT 11.7 SECONDS (9.4-12.5) 12/04/17 11:54 INR 1.02 12/04/17 11:54 APTT 29.8 Seconds (25.1-36.5) 12/04/17 11:54 - Constitutional Appears: No Acute Distress - Head Exam Head Exam: ATRAUMATIC, NORMAL INSPECTION, NORMOCEPHALIC - Eye Exam Eye Exam: EOMI, PERRL - ENT Exam ENT Exam: Mucous Membranes Moist - Neck Exam Neck Exam: Full ROM - Respiratory Exam Respiratory Exam: NORMAL BREATHING PATTERN - Cardiovascular Exam Cardiovascular Exam: REGULAR RHYTHM, +S1, +S2 - GI/Abdominal Exam GI & Abdominal Exam: Soft, Normal Bowel Sounds. absent: Tenderness - Extremities Exam Extremities Exam: Full ROM. absent: Pedal Edema - Back Exam Back Exam: NORMAL INSPECTION. absent: paraspinal tenderness - Neurological Exam Neurological Exam: Alert, Awake, Normal Gait, Oriented x3 Neuro motor strength exam: Left Upper Extremity: 5, Right Upper Extremity: 5, Left Lower Extremity: 5, Right Lower Extremity: 5 - Psychiatric Exam Psychiatric exam: Normal Affect, Normal Mood - Skin Skin Exam: Dry, Intact Assessment and Plan - Assessment and Plan (Free Text) Assessment: 52 year old female with PMH of gastric sleeve, chronic diarrhea, HEP c and ?Crohn presenting to ED with shortness of breath. Patient with continual nausea and vomiting on presentation as well as diarrhea. Patient is s/p EGD with evidence of significant stenosis of s/p gasterectomy sleeve stomach Plan: Abdominal Pain Transamintiis likely 2/2 Hep C untreated Chronic diarrhea likely 2/2 IBD vs. IBS vs celiacs - EGD(12/11/2017): - Mucosal changes including longitudinal furrows and circumferential folds in the upper 1/3 of esophagus. - diffuse moderately erythematous mucosa without bleeding in the gastric antrum - Sleeve gastrectomy, moderate stenosis - Abdominal US: - Mild hepatomegaly, suspected small gallstones w/out biliary dilatation, diffuse increased echogenicity in the liver may reflect hepatic steatosis - CT abd/Pelvis: - with contrast showing no signifianct intestinal abnormalitiy, presence of gallstones - Continue carafate, PPI - Follow up with [facility] for Hep C treatment upon discharge - NPO after midngith for EGD tomorrow AM - Further recommendations per Dr. Zamarripa <Walt Zamarripa V - Last Filed: 12/12/17 00:04> Objective - Vital Signs/Intake and Output Vital Signs (last 24 hours): Temp Pulse Resp BP Pulse Ox 97.9 F 69 18 134/74 96 12/11/17 14:00 12/11/17 14:00 12/11/17 14:00 12/11/17 14:00 12/11/17 14:00 - Labs Labs: 12/05/17 07:30 12/05/17 07:30 PT 11.7 SECONDS (9.4-12.5) 12/04/17 11:54 INR 1.02 12/04/17 11:54 APTT 29.8 Seconds (25.1-36.5) 12/04/17 11:54 Attending/Attestation - Attestation I have personally seen and examined this patient.: Yes I have fully participated in the care of the patient.: Yes I have reviewed all pertinent clinical information, including history, physical exam and plan: Yes Notes (Text): This is an addendum to GI followup report dictated by the Stick Roller. The patient was seen and evaluated earlier. Medical records, lab studies, imagings were reviewed. Last 24 hours events reviewed. Agreed with the above treatment plan as outlined in Stick Roller 's notes with the addition of the following Patient feels better Advised to take a trial of few weeks of puree diet Status post EGD yesterday Found to have a hourglass appearance of the stomach with moderate stenosis of the gastric body secondary to sleeve surgery Patient advised to take miralax for chronic constipation Ordered abdominal doppler for portal vein 12/12/17 00:03
[2017-12-11] MEDS: MethylPREDNISolone 40 mg Vial IVP SCH (11:23)
[2017-12-11 15:03] VITALS: BP 134/74; PULSE 69; RESP 18; TEMP 97.9; O2SAT 96
--- NOTE | 2017-12-11 17:48 | US ---
PROCEDURE: Portal vein duplex ultrasound. CLINICAL HISTORY: Cirrhosis. Deteriorating liver function. Evaluate for portal vein thrombosis. PHYSICIAN(S): Tahir Palmer M.D. FINDINGS: Limited images of the hepatic parenchyma are heterogeneous, consistent with cirrhosis. The extrahepatic portal vein is patent with hepatopetal flow. The hepatic artery is prominent, consistent with the diagnosis of cirrhosis. The visualized central patent veins are patent. The spleen is borderline enlarged. No significant ascites is appreciated. IMPRESSION: 1. Patent portal vein with hepatopetal flow.
--- NOTE | 2017-12-12 06:56 | DS ---
HISTORY OF PRESENT ILLNESS: The patient is 52 years old who came to emergency room because of increasing cough, congestion, and wheezing. She has been using nebulizer a lot at home with no significant relief. So she came to emergency room for further evaluation. PAST MEDICAL HISTORY: The patient does have a history of; 1. Anxiety disorder. 2. History of asthma. 3. History of recent gastric stapling in September. Since then, she is having difficulty holding food. Does complain of abdominal pain and of vomiting. PHYSICAL EXAMINATION: GENERAL: Today, she is awake, alert, oriented, and communicative. VITAL SIGNS: She is afebrile, pulse 64, respirations 20, and blood pressure 131/92. LUNGS: Bilateral fair airflow. No rhonchi or crackle. HEART: S1 and S2 audible. ABDOMEN: Soft. Nontender. No rebound. No guarding. NEUROLOGIC: She is awake, alert, oriented, communicative, and ambulatory. She had endoscopy done yesterday. Stomach shows hourglass appearance. There are some mucosal changes including longitudinal furrows and circumferential folds were found in the esophagus. Diffuse moderately rectal mucosa without bleeding. Second portion of duodenum is normal. There is evidence of sleeve gastrectomy and moderate stenosis. ASSESSMENT: 1. Asthma exacerbation. 2. Recent gastric sleeve operation. 3. Probably gastroesophageal reflux disease. PLAN: The patient is taking Nexium at home. We will discharge her on prednisone 20 mg daily for a week. She will continue her nebulizer treatment. She will follow up with her PMD. Holger Coreas MD
--- NOTE | 2017-12-18 11:43 | PQF ---
PROVIDER RESPONSE TEXT: Had asthma exacerbation and superadded micro aspiration componant secondary to recent gastric stappli ng. REVIEWER QUERY TEXT: Asthma Specificity and Type Asthma is documented in the Medical Record. Please specify the type and severity of asthma and indic ate if this is associated with exacerbation or status asthmaticus. Such as: -- Mild intermittent -- Mild persistent -- Moderate persistent -- Severe persistent -- Exercise induced bronchospasm -- Cough variant asthma -- Other, please specify The patient's Clinical Indicators include: Asthma exacerbation is documented on your summary. Please indicate type of asthma, as listed below. Iftikhar lindsey. Query created by: Sinai Guzman on 12/12/2017 2:19 PM Electronically signed by: Holger Coreas MD 12/18/2017 11:40 AM
--- NOTE | 2017-12-18 11:47 | PQF ---
PROVIDER RESPONSE TEXT: Confirmed treated and resolved REVIEWER QUERY TEXT: Conflicting Documentation Clarification A single mention or documentation of multiple diagnoses for the same clinical presentation appears in the record. Please clarify the diagnosis/diagnoses. Please also document if the condition is: -- Confirmed and current -- Confirmed, treated and resolved -- Ruled out -- Other, please specify The patient's Clinical Indicators include: Acute pneumonia is documented by the ED physician, but not elsewhere. Do you agree, disagree, undeter mined with this diagnosis for this patient. Thank you. Query created by: Sinai Guzman on 12/12/2017 2:25 PM Electronically signed by: Holger Coreas MD 12/18/2017 11:44 AM
== END 2017-12-11 17:18 | disposition home or self-care (01) | DRG 190 ==
LOC: ED 09:28 → ERH 13:27 → 5RSO 14:31 → OBSVTOIN 12-05 12:18
PROVIDERS: ADMIT Internal Medicine; ATTEND Internal Medicine
PROC: 0DB68ZX Excision of Stomach, Via Natural or Artificial Opening Endoscopic, Diagnostic (ICD-10-PCS; principal; 2017-12-10 14:30)
DX: J44.1 Chronic obstructive pulmonary disease with (acute) exacerbation (principal); J18.9 Pneumonia, unspecified organism; J45.901 Unspecified asthma with (acute) exacerbation; K50.90 Crohn's disease, unspecified, without complications; J44.0 Chronic obstructive pulmonary disease with (acute) lower respiratory infection; I10 Essential (primary) hypertension; M79.7 Fibromyalgia; M48.00 Spinal stenosis, site unspecified; Z87.891 Personal history of nicotine dependence; E11.9 Type 2 diabetes mellitus without complications; B18.2 Chronic viral hepatitis C; R13.10 Dysphagia, unspecified; K21.9 Gastro-esophageal reflux disease without esophagitis; E03.9 Hypothyroidism, unspecified; E11.65 Type 2 diabetes mellitus with hyperglycemia; E78.5 Hyperlipidemia, unspecified; F41.9 Anxiety disorder, unspecified; G89.29 Other chronic pain; I51.7 Cardiomegaly; I77.819 Aortic ectasia, unspecified site; K59.09 Other constipation; T38.0X5A Adverse effect of glucocorticoids and synthetic analogues, initial encounter; Z79.890 Hormone replacement therapy; Z87.01 Personal history of pneumonia (recurrent); Z87.11 Personal history of peptic ulcer disease; Z87.440 Personal history of urinary (tract) infections; Z87.442 Personal history of urinary calculi; Z90.710 Acquired absence of both cervix and uterus; Z98.84 Bariatric surgery status; K29.50 Unspecified chronic gastritis without bleeding

== ENCOUNTER 2017-12-18 19:38 | Observation (INO) | payer MEDICARE, OTHER ==
[2017-12-18 19:48] VITALS: BMI 30.1
[2017-12-18] MEDS ORDERED: Sodium Chloride 0.9% 500 ML IV STA (19:55)
--- NOTE | 2017-12-18 20:00 | ED PDOC ---
Arrival/HPI - General Chief Complaint: Respiratory Distress Time Seen by Provider: 12/18/17 19:41 Historian: Patient - History of Present Illness Narrative History of Present Illness (Text): 12/18/17 19:57 52 y/o female, pmh including htn/hypothyroidism/asthma/copd/renal colic, nkda, post menopausal, c/o coughing and wheezing x 2 days. Pt. stated that she has been having coughing and wheezing started 2 days ago, just completed a course of prednisone at home for [address] Coreas, no fever or chills, no night sweat, no numbness or tingling, no palpitation, no change in vision, no leg or calf swelling, no diarrhea, no other medical or psychological complaints. Past Medical History - Provider Review Nursing Documentation Reviewed: Yes - Infectious Disease Hx of Infectious Diseases: None - Tetanus Immunization Tetanus Immunization: Up to Date - Reproductive Menopause: Yes - Cardiac Hx Cardiac Disorders: Yes (cp) Hx Hypertension: Yes Other/Comment: AAA "went away" pt stated - Pulmonary Hx Respiratory Disorders: Yes Hx Asthma: Yes Hx Bronchitis: Yes Hx Pneumonia: Yes - Neurological Hx Neurological Disorder: Yes - HEENT Hx HEENT Disorder: Yes (sinusitis) - Renal Hx Renal Disorder: Yes (renal colic) Hx Kidney Stones: Yes Other/Comment: cystos with laser lithotripsy and stent - Endocrine/Metabolic Hx Endocrine Disorders: Yes Hx Hypothyroidism: Yes - Hematological/Oncological Hx Blood Transfusions: No Hx Blood Transfusion Reaction: No - Integumentary Hx Dermatological Disorder: No - Musculoskeletal/Rheumatological Hx Falls: No - Gastrointestinal Hx Gastrointestinal Disorders: Yes Hx Gastroesophageal Reflux: Yes - Genitourinary/Gynecological Hx Genitourinary Disorders: Yes Hx Urinary Tract Infection: Yes - Psychiatric Hx Substance Use: No - Past Surgical History Past Surgical History: No Previous - Surgical History Hx Hysterectomy: Yes (partial due to fibroids) Other/Comment: RENAL STENTS, bariatric sx 09/26/17 lost 27 lbs, thyroid bx, cervical disc sx 2 disks removed from neck, epidural,b/l carpal tunnel, multiple cystos, - Anesthesia Hx Anesthesia Reactions: No Hx Malignant Hyperthermia: No - Suicidal Assessment Feels Threatened In Home Enviroment: No Family/Social History - Physician Review Nursing Documentation Reviewed: Yes Family/Social History: Unknown Family HX Smoking Status: Never Smoked Hx Alcohol Use: Yes (occasional) Hx Substance Use: No Hx Substance Use Treatment: No Allergies/Home Meds Allergies/Adverse Reactions: Allergies No Known Allergies Allergy (Verified 12/18/17 19:53) Home Medications: Home Meds Medication Instructions Recorded Confirmed Levothyroxine Sodium [Synthroid] 175 mcg PO QAM 04/11/16 12/18/17 Albuterol HFA [Ventolin HFA 90 2 puff IH TID PRN 04/24/16 12/18/17 mcg/actuation (8 g)] Nortriptyline HCl [Pamelor] 25 mg PO HS 04/24/16 12/18/17 Carisoprodol [Soma] 350 mg PO DAILY 06/01/17 12/18/17 Fluticasone/Vilanterol [Breo 1 cap NEB DAILY 06/01/17 12/18/17 Ellipta 100-25 Mcg INH] Oxycodone HCl/Acetaminophen 1 tab PO BID PRN 06/01/17 12/18/17 [Percocet 10-325 mg Tablet] clonazePAM [Klonopin] 1 mg PO DAILY PRN 06/01/17 12/18/17 traZODone [Desyrel] 50 mg PO DAILY PRN 06/01/17 12/18/17 Review of Systems - Review of Systems Constitutional: absent: Fatigue, Fevers Eyes: absent: Vision Changes ENT: absent: Hearing Changes Respiratory: Cough, Sputum, Wheezing. absent: SOB Cardiovascular: absent: Chest Pain Gastrointestinal: absent: Abdominal Pain, Nausea, Vomiting Musculoskeletal: absent: Arthralgias, Back Pain Skin: absent: Rash, Pruritis Neurological: absent: Headache, Dizziness Psychiatric: absent: Anxiety, Depression, Suicidal Ideation Physical Exam Vital Signs Reviewed: Yes Vital Signs Temp Pulse Resp BP Pulse Ox 12/18/17 19:46 97.8 F 76 20 145/83 97 Temperature: Afebrile Blood Pressure: Normal Pulse: Regular Respiratory Rate: Normal Appearance: Positive for: Well-Appearing, Non-Toxic, Comfortable Pain Distress: None Mental Status: Positive for: Alert and Oriented X 3 - Systems Exam Head: Present: Atraumatic, Normocephalic Pupils: Present: PERRL Extroacular Muscles: Present: EOMI Conjunctiva: Present: Normal Mouth: Present: Moist Mucous Membranes Neck: Present: Normal Range of Motion Respiratory/Chest: Present: Wheezes, Decreased Breath Sounds, Rhonchi. No: Re spiratory Distress, Accessory Muscle Use, Rales, Retracting, Tachypneic, Tender to Palpation Cardiovascular: Present: Regular Rate and Rhythm, Normal S1, S2. No: Murmurs Abdomen: No: Tenderness, Distention, Peritoneal Signs Back: Present: Normal Inspection Upper Extremity: Present: Normal Inspection. No: Cyanosis, Edema Lower Extremity: Present: Normal Inspection. No: Edema Neurological: Present: GCS=15, CN II-XII Intact, Speech Normal Skin: Present: Warm, Dry, Normal Color. No: Rashes Psychiatric: Present: Alert, Oriented x 3, Normal Insight, Normal Concentration Medical Decision Making ED Course and Treatment: 12/18/17 20:00 -labs -CXR -IV solumedrol and duonebs prn -Observe and reassess 12/18/17 23:54 -CXR show: no active disease. -CTA chest show: No evidence of pulmonary embolism. Minimal atelectasis in the right lung base. -Labs show no acute findings except wbc 14 (just completed a course of prednisone for [address] Coreas) -All labs and radiology studies discussed with the patient for admission, she agreed. -Pt. still feeling shortness of breath, lungs are still wheezing, doesn't feel well to be discharged home. All labs and radiology results discussed with the patient. -Paging Dr. Coreas for observation, xopenex ordered 12/19/17 00:05 -I spoke to Dr. Coreas about this case/labs/radiology studies, agreed to admit to her service and she would follow up the care for the patient. - RAD Interpretation Radiology Orders: 12/18/17 19:55 CHEST PORTABLE [RAD] Stat ------- CTA Chest: Comparison: 12/04/2017. Findings: The pulmonary arteries are well-opacified with contrast, with no intraluminal filling defects to suggest embolism. The thoracic aorta is unremarkable. Thyroid gland is within normal limits. There is no thoracic lymphadenopathy. There are no pericardial or pleural effusions. The lungs are clear, other than minimal atelectasis in the right lung base. Limited imaging of the upper abdomen is unremarkable. There are no suspicious osseous lesions. Impression: 1. No evidence of pulmonary embolism. 2. Minimal atelectasis in the right lung base. Electronically signed on Dec 18, 2017 11:40:20 PM EDT by: Kamran Shen M.D., [facility] Certified By [facility]BR & CBC[facility] Fellowship Trained MRI and CT Specialist Silk Finisher: Radiologist - Medication Orders Current Medication Orders: Albuterol/Ipratropium (Duoneb 3 Mg/0.5 Mg (3 Ml) Ud) 3 ml IH Q15M ASH Stop: 12/18/17 20:31 Sodium Chloride (Sodium Chloride 0.9%) 500 mls @ 999 mls/hr IV .Q31M STA Stop: 12/18/17 20:25 Methylprednisolone (Solu-Medrol) 125 mg IVP STAT STA Stop: 12/18/17 19:56 - PA / RN ONCOLOGY / Resident Statement / has reviewed & agrees with the documentation as recorded. Disposition/Present on Arrival - Present on Arrival Any Indicators Present on Arrival: No History of DVT/PE: No History of Uncontrolled Diabetes: No Urinary Catheter: No History of Decub. Ulcer: No History Surgical Site Infection Following: None - Disposition Have Diagnosis and Disposition been Completed?: Yes Diagnosis: Asthma exacerbation, Failure of outpatient treatment Disposition: HOSPITALIZED Disposition Time: 00:06 Patient Plan: Admission, Observation, Telemetry Condition: STABLE Referrals: Holger Coreas MD [Primary Care Provider] - Follow up with primary Forms: [employer] (Mongolian)
[2017-12-18] MEDS: Albuterol-Ipratrop 3 mg / 0.5 (3 ml) UD IH SCH (20:36)
[2017-12-18 20:38] LABS: BASO # 0.01 K/mm3 (0.0-2.0); BASO % 0.1 % (0.0-3.0); EOS # 0.1 (0.0-0.7); EOS % 0.9 % (1.5-5.0); GRAN # 8.97 (1.4-6.5); GRAN % 60.9 % (50.0-68.0); HEMOGLOBIN 14.9 g/dL (12.0-16.0); LYMPH # 4.5 (1.2-3.4); LYMPH % 30.9 % (22.0-35.0); MEAN CELL VOLUME 89.1 fl (80.0-105.0); MEAN CORPUSCULAR HEMOGLOBIN 30.6 pg (25.0-35.0); MEAN CORPUSCULAR HGB CONC 34.3 g/dl (31.0-37.0); MEAN PLATELET VOLUME 9.4 fl (7.0-11.0); MONO # 1.1 (0.1-0.6); MONO % 7.2 % (1.0-6.0); RBC 4.87 10^6/uL (3.5-6.1); RED CELL DISTRIBUTION WIDTH 13.6 % (11.5-14.5); WHITE BLOOD COUNT 14.7 10^3/ul (4.5-11.0)
[2017-12-18 21:00] LABS: ALB/GLOB RATIO 1.2 (1.1-1.8); ALBUMIN 3.8 g/dL (3.0-4.8); ALT/SGPT 97 U/L (7-56); AST/SGOT 54 U/L (14-36); BLOOD UREA NITROGEN 15 mg/dL (7-21); CALCIUM 8.7 mg/dL (8.4-10.5); GFR NON-AFRICAN AMERICAN > 60
[2017-12-18] MEDS ORDERED: Iohexol 350 MG/100 ML VIAL ONE (22:17)
[2017-12-18] MEDS ORDERED: Levalbuterol 1.25 MG/3 ML Inhal Soln UD IH STA (23:53)
[2017-12-19] MEDS ORDERED: Sodium Chloride 0.9% 1,000 ML IV STA (00:02)
--- NOTE | 2017-12-19 09:27 | CT ---
Date of service: 2017-12-18 22:22:17 CTA chest PE protocol Indication: Technique: Contiguous axial images were obtained through the chest with intravenous contrast enhancement. Sagittal and coronal reconstructions were generated and reviewed. This CT exam was performed using 1 or more of the following dose reduction techniques: Automated exposure control, adjustment of the MAA and/or kV according to patient size, and/or use of iterative reconstruction technique. IV contrast: Radiation dose (DLP): MGy-cm. Comparison: Chest x-ray performed 12/18/17, CT chest without contrast performed 12/04/17 Findings: The mediastinal and hilar vascular structures appear within normal limits. The heart appears within normal limits of size. Re-identified ascending aortic aneurysm measures approximately 4.0 x 4.0 cm. No large central or segmental pulmonary embolus evident. Mild basilar atelectasis. No focal consolidation. No pleural effusion. No pneumothorax. Limited visualized portions of the upper abdomen: Small hiatal hernia. Postsurgical gastric changes. Hypoattenuation of the liver compatible with hepatic steatosis. No acute osseous abnormality is detected. Impression: No large central or segmental pulmonary embolus identified. Ascending aortic aneurysm re-identified measuring approximately 4.0 x 4.0 cm. Mild bibasilar atelectasis. Hypoattenuation of the liver compatible with hepatic steatosis. Additional findings as above. Preliminary impression was provided by [employer] / [email or web address].
--- NOTE | 2017-12-19 09:33 | CARD ---
APPROVED REPORT Date of service: 12/19/2017 EKG Measurement Heart [id number] <Conclusion> Normal sinus rhythm Moderate voltage criteria for LVH, may be normal variant
--- NOTE | 2017-12-19 10:47 | RAD ---
HISTORY: cough/wheezing COMPARISON: Chest x-ray performed 12/10/17 TECHNIQUE: Chest, one view. FINDINGS: LUNGS: No focal consolidation. Please note that chest x-ray has limited sensitivity for the detection of pulmonary masses. PLEURA: No significant pleural effusion identified. No definite pneumothorax . CARDIOVASCULAR: Heart size appears within normal limits. Prominent aorta consistent with history of ascending aortic aneurysm. OSSEOUS STRUCTURES: No acute osseous abnormality identified. VISUALIZED UPPER ABDOMEN: Unremarkable. OTHER FINDINGS: None. IMPRESSION: Prominent aorta consistent with history of aortic ascending aneurysm. No focal consolidation, significant pleural effusion, or definite pneumothorax identified.
[2017-12-19] MEDS: MethylPREDNISolone 40 mg Vial IV SCH ×2 (13:02→21:56)
[2017-12-19] MEDS: Oxycodone/Acetaminophen 5/325 mg Tab PO PRN ×2 (15:55→20:57)
[2017-12-19] MEDS: Albuterol-Ipratrop 3 mg / 0.5 (3 ml) UD IH SCH (15:55)
[2017-12-19] MEDS ORDERED: Pneumococcal 23-Valent Vaccine IM ONE (18:02)
[2017-12-19] MEDS ORDERED: Influenza Vaccine 60 mcg/0.5 mL SYR (4YR UP) IM ONE (18:02)
[2017-12-19 19:25] VITALS: RESP 20
--- NOTE | 2017-12-19 22:46 | HP ---
HISTORY OF PRESENT ILLNESS: The patient is 52 years old, known to me from previous admissions. She stated last night, she had cough, congestion and shortness of breath got worse. She was unable to catch breath, got panic and called ambulance and was brought to emergency room. She denies any fever or chills. Does complain of chest tightness and shortness of breath. She has no hemoptysis. No hematemesis. PAST MEDICAL HISTORY: She has significant past medical history of: 1. Bronchial asthma. 2. Hypertension. 3. 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 4. Anxiety disorder. 5. Hypertension. ALLERGIES: SHE IS NOT ALLERGIC TO ANY MEDICATIONS. MEDICATIONS AT HOME: She is on Pepcid, nebulizer treatment. She is on levothyroxine 175 mcg daily, nortriptyline, Percocet as needed, Ventolin HFA. She is on Breo Ellipta, Soma, trazodone and Klonopin. SOCIAL HISTORY: She lives with her boyfriend. She used to smoke in the past, but quit few years ago. PHYSICAL EXAMINATION: GENERAL: The patient is awake, alert, oriented, has shortness of breath and audible wheezing. VITAL SIGNS: She is afebrile, pulse 80, respirations 17, blood pressure 130/72. LUNGS: Bilateral airflow is present, but has dense bilateral expiratory rhonchi throughout both lung de la fuente. HEART: S1 and S2 audible. ABDOMEN: Soft. Nontender. No rebound. No guarding. NEUROLOGIC: The patient is awake, alert, oriented, communicative. LABORATORY DATA: WBC is 14.7, hemoglobin 14.9 and hematocrit 43.4, platelet of 293. Chemistry, sodium 139, potassium 3.6, chloride 106, CO2 of 25, BUN 15, creatinine 0.7, blood sugar of 93, LFTs shows AST 54, ALT 97. She had CT scan of the chest done that is negative for PE. She has mild bilateral basal atelectasis. ASSESSMENT AND PLAN: 1. Asthma exacerbation. 2. History of hepatitis c. 3. Anxiety disorder. 4. Peptic ulcer disease. 5. Gastroesophageal reflux disease. 6. Status post gastric stapling. PLAN: The patient will be admitted to med/surg floor. We will start her on her usual medication. We will start her on amlodipine. She will get IV steroid, nebulizer treatment. We will give her Protonix, Pepcid at bedtime and we will follow up this patient in a.m. Holger Coreas MD
[2017-12-20] MEDS ORDERED: Pantoprazole 40 mg EC Tab PO SCH (06:00)
[2017-12-20] MEDS ORDERED: Levothyroxine 175 MCG TAB PO SCH (07:30)
[2017-12-20 07:53] VITALS: PULSE 58; TEMP 97.4; O2SAT 96
[2017-12-20] MEDS: Albuterol-Ipratrop 3 mg / 0.5 (3 ml) UD IH SCH (08:00)
[2017-12-20] MEDS: MethylPREDNISolone 40 mg Vial IV SCH (09:10)
[2017-12-20 09:13] VITALS: BP 142/76
[2017-12-20] MEDS: Oxycodone/Acetaminophen 5/325 mg Tab PO PRN (09:23)
[2017-12-20] MEDS ORDERED: Levothyroxine 112 MCG TAB PO SCH (10:00)
[2017-12-21] MEDS ORDERED: Levothyroxine 175 MCG TAB PO SCH (06:00)
--- NOTE | 2017-12-21 14:13 | DS ---
HISTORY OF PRESENT ILLNESS: The patient is a 52-year-old, seen and examined, sitting in the chair, seems to be comfortable, still wheezing, but less than before. She is able to ambulate with mild shortness of breath. PHYSICAL EXAMINATION: VITAL SIGNS: She is afebrile, pulse 50, respirations 20, blood pressure 142/76. LUNGS: Bilateral expiratory rhonchi, more so posteriorly. HEART: S1,S2 audible. ABDOMEN: Soft, obese, nontender. No rebound. No guarding. NEUROLOGIC: She is awake, alert, oriented, communicative, ambulatory. ASSESSMENT: 1. Asthma exacerbation. 2. Gastroesophageal reflux disease. 3. Basal atelectasis. 4. Recent gastric stapling. PLAN: The patient is being discharged home on Prednisone 20 mg 3 times a day for 3 days, 20 mg twice a day for 3 days and then daily for 5 days. She will resume all her medications including Trazodone, Synthroid, nebulizer treatment. There is no need for antibiotic for now. She is being discharged to follow with Dr. Cortez as outpatient. Holger Coreas MD
== END 2017-12-20 12:45 | disposition home or self-care (01) ==
LOC: ED 19:38 → ERH 12-19 00:01 → 3RNO 12-19 18:15
PROVIDERS: ADMIT Internal Medicine; ATTEND Internal Medicine
DX: J45.901 Unspecified asthma with (acute) exacerbation (principal); K21.9 Gastro-esophageal reflux disease without esophagitis; J98.11 Atelectasis; J44.9 Chronic obstructive pulmonary disease, unspecified; E03.9 Hypothyroidism, unspecified; F41.9 Anxiety disorder, unspecified; I10 Essential (primary) hypertension; Z87.891 Personal history of nicotine dependence; Z87.11 Personal history of peptic ulcer disease; Z98.84 Bariatric surgery status
CPT/HCPCS: 71045; 71275; 80053; 83735; 85025; 93005; 94640; 96361; 96374; 96375; 96376; 99285; C9113; G0378; J2920; J2930; J7030; J7040; Q9967

== ENCOUNTER 2018-01-16 10:59 | Emergency (ER) | payer MEDICARE, OTHER ==
[2018-01-16 10:59] VITALS: BMI 30.1
--- NOTE | 2018-01-16 12:59 | ED PDOC ---
Arrival/HPI - General Chief Complaint: Lower Extremity Problem/Injury Historian: Patient - History of Present Illness Narrative History of Present Illness (Text): 01/16/18 12:55 52yo female with pmhx of Fibromyalgia who present with complaint of b/l foot pain s/p trauma 5days ago. States she injured both foot, when she had a syncopal episode on Friday. states the swelling improved, but she is still having pain, worse on her right toes. States she rest her legs by staying bed most of the time till yesterday. States she took Percocet at home with relieve. Denies any other complaint. She ambulated into ED. Past Medical History - Provider Review Nursing Documentation Reviewed: Yes - Infectious Disease Hx of Infectious Diseases: None - Tetanus Immunization Tetanus Immunization: Up to Date - Reproductive Menopause: Yes - Cardiac Hx Cardiac Disorders: Yes (cp) Hx Hypertension: Yes Other/Comment: AAA "went away" pt stated - Pulmonary Hx Respiratory Disorders: Yes (SMOKES MARIJUANA FOR HER FRIBROMYALGIA) Hx Asthma: Yes Hx Bronchitis: Yes Hx Pneumonia: Yes - Neurological Hx Neurological Disorder: Yes - HEENT Hx HEENT Disorder: Yes (sinusitis) - Renal Hx Renal Disorder: Yes (renal colic) Hx Kidney Stones: Yes Other/Comment: cystos with laser lithotripsy and stent - Endocrine/Metabolic Hx Endocrine Disorders: Yes Hx Hypothyroidism: Yes - Hematological/Oncological Hx Blood Disorders: Yes Hx Hepatitis C: Yes (under control) - Integumentary Hx Dermatological Disorder: No - Musculoskeletal/Rheumatological Hx Musculoskeletal Disorders: Yes Hx Falls: No - Gastrointestinal Hx Gastrointestinal Disorders: Yes (GASTRIC SLEEVE) Hx Gastroesophageal Reflux: Yes - Genitourinary/Gynecological Hx Genitourinary Disorders: Yes Hx Urinary Tract Infection: Yes - Psychiatric Hx Psychophysiologic Disorder: Yes Hx Anxiety: Yes Hx Emotional Abuse: No Hx Physical Abuse: No Hx Substance Use: No (SOCIALLY SMOKES MARIJUANA EVERY NOW AND THEN. LAST SMOKED 2 MOS AGO.) - Past Surgical History Past Surgical History: No Previous - Surgical History Hx Hysterectomy: Yes (partial due to fibroids) Other/Comment: RENAL STENTS, bariatric sx 09/26/17 lost 27 lbs, thyroid bx, cervical disc sx 2 disks removed from neck, epidural,b/l carpal tunnel, multiple cystos,GASTRIC SLEEVE. - Anesthesia Hx Anesthesia Reactions: No Hx Malignant Hyperthermia: No - Suicidal Assessment Feels Threatened In Home Enviroment: No Family/Social History - Physician Review Nursing Documentation Reviewed: Yes Family/Social History: Unknown Family HX Smoking Status: Never Smoked Hx Alcohol Use: Yes (OCCASIONALLY) Hx Substance Use: No (SOCIALLY SMOKES MARIJUANA EVERY NOW AND THEN. LAST SMOKED 2 MOS AGO.) Hx Substance Use Treatment: No Allergies/Home Meds Allergies/Adverse Reactions: Allergies No Known Allergies Allergy (Verified 12/19/17 17:36) Home Medications: Home Meds Medication Instructions Recorded Confirmed Levothyroxine Sodium [Synthroid] 175 mcg PO QAM 04/11/16 01/16/18 Albuterol HFA [Ventolin HFA 90 2 puff IH TID PRN 04/24/16 01/16/18 mcg/actuation (8 g)] Nortriptyline HCl [Pamelor] 25 mg PO HS 04/24/16 01/16/18 Carisoprodol [Soma] 350 mg PO DAILY 06/01/17 01/16/18 Fluticasone/Vilanterol [Breo 1 cap NEB DAILY 06/01/17 01/16/18 Ellipta 100-25 Mcg INH] Oxycodone HCl/Acetaminophen 1 tab PO BID PRN 06/01/17 01/16/18 [Percocet 10-325 mg Tablet] clonazePAM [Klonopin] 1 mg PO DAILY PRN 06/01/17 01/16/18 traZODone [Desyrel] 50 mg PO DAILY PRN 06/01/17 01/16/18 Review of Systems - Physician Review All systems were reviewed & negative as marked: Yes - Review of Systems Constitutional: Normal Eyes: Normal ENT: Normal Respiratory: Normal Cardiovascular: Normal Gastrointestinal: Normal Genitourinary Female: Normal Musculoskeletal: Arthralgias (B/L foot pain) Skin: Normal Neurological: Normal Endocrine: Normal Hemo/Lymphatic: Normal Psychiatric: Normal Physical Exam Vital Signs Reviewed: Yes Vital Signs Temp Pulse Resp BP Pulse Ox 01/16/18 11:20 97.8 F 79 18 113/79 100 Temperature: Afebrile Blood Pressure: Normal Pulse: Regular Respiratory Rate: Normal Appearance: Positive for: Well-Appearing, Non-Toxic, Comfortable Pain Distress: None Mental Status: Positive for: Alert and Oriented X 3 - Systems Exam Head: Present: Atraumatic, Normocephalic Pupils: Present: PERRL Extroacular Muscles: Present: EOMI Conjunctiva: Present: Normal Mouth: Present: Moist Mucous Membranes Neck: Present: Normal Range of Motion Respiratory/Chest: Present: Clear to Auscultation, Good Air Exchange. No: Respiratory Distress, Accessory Muscle Use Cardiovascular: Present: Regular Rate and Rhythm, Normal S1, S2. No: Murmurs Abdomen: No: Tenderness, Distention, Peritoneal Signs Back: Present: Normal Inspection Upper Extremity: Present: Normal Inspection. No: Cyanosis, Edema Lower Extremity: Present: NORMAL PULSES, Normal ROM, Tenderness (Lateral left foot and right foot toes), Swelling (B/L foot), Neurovascularly Intact, Other (Ecchymosis noted over the right toes and lateral left foot). No: Edema Neurological: Present: GCS=15, CN II-XII Intact, Speech Normal Skin: Present: Warm, Dry, Normal Color. No: Rashes Psychiatric: Present: Alert, Oriented x 3, Normal Insight, Normal Concentration Medical Decision Making ED Course and Treatment: 01/16/18 13:39 Pt in ED for stated history. B/L foot xray - No acute fracture noted Result was DW the pt. Cane or crutches was offered to pt, but she declined. Referred to a Family Resource Specialist - RAD Interpretation Radiology Orders: 01/16/18 12:29 FOOT LEFT 3 VIEWS ROUTINE [RAD] Stat FOOT RIGHT 3 VIEWS ROUTINE [RAD] Stat Disposition/Present on Arrival - Present on Arrival Any Indicators Present on Arrival: No History of DVT/PE: No History of Uncontrolled Diabetes: No Urinary Catheter: No History of Decub. Ulcer: No History Surgical Site Infection Following: None - Disposition Have Diagnosis and Disposition been Completed?: Yes Diagnosis: Foot sprain Disposition: HOME/ ROUTINE Disposition Time: 16:40 Patient Plan: Discharge Condition: STABLE Discharge Instructions (ExitCare): Foot Sprain (DC) Additional Instructions: Rest, Ice and compress foot Follow up with your Doctor Return to ED for any new or worsening symptoms Prescriptions: Naproxen [Naprosyn] 500 mg PO BID #20 tablet Referrals: Stephan Alves DPM [Staff Provider] - Follow up with primary Forms: [employer] ([employer])
[2018-01-16 14:07] VITALS: BP 119/78; PULSE 80; TEMP 98
--- NOTE | 2018-01-16 14:46 | RAD ---
Date of service: 01/16/2018 PROCEDURE: Left Foot Radiographs. HISTORY: foot pain s/p trauma COMPARISON: None. FINDINGS: BONES: Normal. No fracture. JOINTS: Normal. SOFT TISSUES: Normal. OTHER FINDINGS: None. IMPRESSION: Normal left foot radiographs.
--- NOTE | 2018-01-16 14:46 | RAD ---
Date of service: 01/16/2018 PROCEDURE: Right Foot Radiographs. HISTORY: foot pain s/p trauma COMPARISON: 04/28/2017 FINDINGS: BONES: Previous resection of the 4th middle phalanx. JOINTS: Normal. SOFT TISSUES: Normal. OTHER FINDINGS: None. IMPRESSION: No acute findings
[2018-01-16 14:53] VITALS: RESP 19; O2SAT 97
== END 2018-01-16 14:53 | disposition home or self-care (01) ==
LOC: ED 10:59
DX: S93.601A Unspecified sprain of right foot, initial encounter (principal); S93.602A Unspecified sprain of left foot, initial encounter; X58.XXXA Exposure to other specified factors, initial encounter; Y92.9 Unspecified place or not applicable
CPT/HCPCS: 73630; 96372; 99283; J1885

== ENCOUNTER 2018-01-19 08:51 | Emergency (ER) | payer MEDICARE, OTHER ==
[2018-01-19 08:52] VITALS: BMI 30.1
[2018-01-19 09:11] VITALS: RESP 19
[2018-01-19 09:15] VITALS: TEMP 98
[2018-01-19] MEDS ORDERED: Sodium Chloride 0.9% 1,000 ML IV STA ×2 (09:20→10:45)
[2018-01-19] MEDS ORDERED: Albuterol-Ipratrop 3 mg / 0.5 (3 ml) UD IH STA (09:22)
[2018-01-19 09:37] LABS: BASO # 0.02 K/mm3 (0.0-2.0); BASO % 0.3 % (0.0-3.0); EOS # 0.2 (0.0-0.7); EOS % 3.3 % (1.5-5.0); GRAN # 4.23 (1.4-6.5); GRAN % 60.5 % (50.0-68.0); HEMOGLOBIN 14.2 g/dL (12.0-16.0); LYMPH # 1.9 (1.2-3.4); LYMPH % 27.6 % (22.0-35.0); MEAN CELL VOLUME 88.9 fl (80.0-105.0); MEAN CORPUSCULAR HEMOGLOBIN 30.2 pg (25.0-35.0); MEAN PLATELET VOLUME 9.2 fl (7.0-11.0); MONO # 0.6 (0.1-0.6); MONO % 8.3 % (1.0-6.0); RBC 4.7 10^6/uL (3.5-6.1); RED CELL DISTRIBUTION WIDTH 13.2 % (11.5-14.5)
--- NOTE | 2018-01-19 09:39 | ED PDOC ---
Arrival/HPI - General Chief Complaint: Dizziness/Lightheaded Time Seen by Provider: 01/19/18 08:57 Historian: Patient - History of Present Illness Narrative History of Present Illness (Text): 01/19/18 09:20 52 y/o F, with past medical history of asthma, aortic aneurysm, fibromyalgia, hypothyroidism, kidney stones, degenerative joint disease, spinal stenosis and hypertension, presents to the Emergency department complaining of a transient episode of lightheadedness/dizziness since waking up this morning. Patient informs a recent syncopal episode last Friday sustaining injury to bilateral ankles. Patient informs similar symptoms this morning prompting her to present to the ED for medical evaluation. As per patient, her BS was 84 and BP was 111/70 at home, with unchanged symptoms. Patient states appropriate ambulation and was able to walk to the ambulance without any difficulty. Patient denies any other associated somatic complaints. Patient denies any fevers, chills, headache, numbness/weakness, chest pain, palpitations, shortness of breath, dyspnea on exertion, cough, abdominal pain, nausea, vomiting, diarrhea, back pain, neck pain, or any other complaints. Patient denies any history of smoking. PMD: Grace Brennan Time/Duration: 1-3 hours Symptom Onset: Gradual Symptom Course: Unchanged Activities at Onset: Light Context: Home Past Medical History - Provider Review Nursing Documentation Reviewed: Yes - Infectious Disease Hx of Infectious Diseases: None - Tetanus Immunization Tetanus Immunization: Up to Date - Reproductive Menopause: No - Cardiac Hx Cardiac Disorders: Yes (cp) Hx Hypertension: Yes Other/Comment: AAA "went away" pt stated - Pulmonary Hx Respiratory Disorders: Yes (SMOKES MARIJUANA FOR HER FRIBROMYALGIA) Hx Asthma: Yes Hx Bronchitis: Yes Hx Pneumonia: Yes - Neurological Hx Neurological Disorder: Yes - HEENT Hx HEENT Disorder: Yes (sinusitis) - Renal Hx Renal Disorder: Yes (renal colic) Hx Kidney Stones: Yes Other/Comment: cystos with laser lithotripsy and stent - Endocrine/Metabolic Hx Endocrine Disorders: Yes Hx Hypothyroidism: Yes - Hematological/Oncological Hx Blood Disorders: Yes Hx Hepatitis C: Yes (under control) - Integumentary Hx Dermatological Disorder: No - Musculoskeletal/Rheumatological Hx Musculoskeletal Disorders: Yes Hx Falls: No - Gastrointestinal Hx Gastrointestinal Disorders: Yes (GASTRIC SLEEVE) Hx Gastroesophageal Reflux: Yes - Genitourinary/Gynecological Hx Genitourinary Disorders: Yes Hx Urinary Tract Infection: Yes - Psychiatric Hx Psychophysiologic Disorder: Yes Hx Anxiety: Yes Hx Emotional Abuse: No Hx Physical Abuse: No Hx Substance Use: No (SOCIALLY SMOKES MARIJUANA EVERY NOW AND THEN. LAST SMOKED 2 MOS AGO.) - Past Surgical History Past Surgical History: No Previous - Surgical History Hx Hysterectomy: Yes (partial due to fibroids) Other/Comment: RENAL STENTS, bariatric sx 09/26/17 lost 27 lbs, thyroid bx, cervical disc sx 2 disks removed from neck, epidural,b/l carpal tunnel, multiple cystos,GASTRIC SLEEVE. - Anesthesia Hx Anesthesia: Yes Hx Anesthesia Reactions: No Hx Malignant Hyperthermia: No - Suicidal Assessment Feels Threatened In Home Enviroment: No Family/Social History - Physician Review Nursing Documentation Reviewed: Yes Family/Social History: Unknown Family HX Smoking Status: Never Smoked Hx Alcohol Use: Yes (OCCASIONALLY) Hx Substance Use: No (SOCIALLY SMOKES MARIJUANA EVERY NOW AND THEN. LAST SMOKED 2 MOS AGO.) Hx Substance Use Treatment: No Allergies/Home Meds Allergies/Adverse Reactions: Allergies No Known Allergies Allergy (Verified 12/19/17 17:36) Home Medications: Home Meds Medication Instructions Recorded Confirmed Levothyroxine Sodium [Synthroid] 175 mcg PO QAM 04/11/16 01/16/18 Albuterol HFA [Ventolin HFA 90 2 puff IH TID PRN 04/24/16 01/16/18 mcg/actuation (8 g)] Nortriptyline HCl [Pamelor] 25 mg PO HS 04/24/16 01/16/18 Carisoprodol [Soma] 350 mg PO DAILY 06/01/17 01/16/18 Fluticasone/Vilanterol [Breo 1 cap NEB DAILY 06/01/17 01/16/18 Ellipta 100-25 Mcg INH] Oxycodone HCl/Acetaminophen 1 tab PO BID PRN 06/01/17 01/16/18 [Percocet 10-325 mg Tablet] clonazePAM [Klonopin] 1 mg PO DAILY PRN 06/01/17 01/16/18 traZODone [Desyrel] 50 mg PO DAILY PRN 06/01/17 01/16/18 Review of Systems - Physician Review All systems were reviewed & negative as marked: Yes - Review of Systems Constitutional: absent: Fevers Respiratory: absent: SOB, Cough Cardiovascular: absent: Chest Pain Gastrointestinal: absent: Abdominal Pain, Diarrhea, Nausea, Vomiting Musculoskeletal: Arthralgias (bilateral ankle discomfort s/p syncopal episode on Friday). absent: Back Pain, Neck Pain Skin: absent: Rash Neurological: Dizziness. absent: Headache Physical Exam Vital Signs Reviewed: Yes Vital Signs Temp Pulse Resp BP Pulse Ox 01/19/18 09:14 98 F 01/19/18 09:11 75 19 133/83 97 01/19/18 09:10 97.7 F 76 18 133/83 97 Temperature: Afebrile Blood Pressure: Normal Pulse: Regular Respiratory Rate: Normal Appearance: Positive for: Well-Appearing, Non-Toxic, Comfortable Pain Distress: None Mental Status: Positive for: Alert and Oriented X 3 Finger Stick Blood Glucose: 96 - Systems Exam Head: Present: Atraumatic, Normocephalic Pupils: Present: PERRL Extroacular Muscles: Present: EOMI Conjunctiva: Present: Normal Mouth: Present: Moist Mucous Membranes Neck: Present: Normal Range of Motion Respiratory/Chest: Present: Good Air Exchange, Wheezes (diffsued expiratory wheeze bilaterally.). No: Respiratory Distress, Accessory Muscle Use, Tachypneic Cardiovascular: Present: Regular Rate and Rhythm, Normal S1, S2. No: Murmurs Abdomen: No: Tenderness, Distention, Peritoneal Signs Back: Present: Normal Inspection Upper Extremity: Present: Normal Inspection. No: Cyanosis, Edema Neurological: Present: GCS=15, CN II-XII Intact, Speech Normal, Motor Func Grossly Intact, Normal Sensory Function, Other (No facial asymmetry) Skin: Present: Warm, Dry, Normal Color. No: Rashes Psychiatric: Present: Alert, Oriented x 3, Normal Insight, Normal Concentration Medical Decision Making ED Course and Treatment: 01/19/18 09:20 Impression: 52 year old female presents to the Emergency department complaining of lightheadedness/dizziness. Differential Diagnosis included but are not limited to: Near-Syncope Plan: -- CT of Head --Orthostatics blood pressure -- Labs -- Chest X-ray -- Meclizine -- Duoneb -- Reglan -- IV Fluids -- Prednisone -- Urinalysis -- Reassess and disposition Prior Visits: Notes and results from previous visits were reviewed. Progress Notes: 01/19/18 10:47 Labs noted to have hypokalemia noted. Will replete potassium. Orthostatic blood pressures taken with sitting pressure noted to be 108. Additional 1L of fluid administered. UA positive for UTI. Keflex ordered 01/19/18 11:26 Patient reassessed and feels much better. She admits to having a followup appointment with her neurologist Dr. Ramirez this month. She admits to [facility] EMG, EEG and several nerve conduction studies performed for her fibromyalgia. She is stable for discharge. - Lab Interpretations Lab Results: Lab Results 01/19/18 09:00: POC Glucose (mg/dL) 97 - RAD Interpretation Narrative RAD Interpretations (Text): 01/19/18 11:02 Chest X-ray reviewed by radiologist, shows: FINDINGS: LUNGS: No active pulmonary disease. PLEURA: No significant pleural effusion identified, no pneumothorax apparent. CARDIOVASCULAR: No aortic atherosclerotic calcification present. Normal cardiac size. No pulmonary vascular congestion. OSSEOUS STRUCTURES: No significant abnormalities. VISUALIZED UPPER ABDOMEN: Normal. OTHER FINDINGS: None. IMPRESSION: No active disease. Radiology Orders: 01/19/18 09:19 CHEST PORTABLE [RAD] Stat Crt: Radiologist - Medication Orders Current Medication Orders: Sodium Chloride (Sodium Chloride 0.9%) 1,000 mls @ 999 mls/hr IV .Q1H1M STA Stop: 01/19/18 10:20 Discontinued Medications Albuterol/Ipratropium (Duoneb 3 Mg/0.5 Mg (3 Ml) Ud) 3 ml IH STAT STA Stop: 01/19/18 09:23 Meclizine HCl (Antivert) 25 mg PO STAT STA Stop: 01/19/18 09:21 Metoclopramide HCl (Reglan) 10 mg IVP STAT STA Stop: 01/19/18 09:25 Prednisone (Prednisone Tab) 60 mg PO STAT ONE Stop: 01/19/18 09:23 - Scribe Statement The provider has reviewed the documentation as recorded by the Rinku Christensen. All medical record entries made by the Scribe were at my direction and personally dictated by me. I have reviewed the chart and agree that the record accurately reflects my personal performance of the history, physical exam, medical decision making, and the department course for this patient. I have also personally directed, reviewed, and agree with the discharge instructions and disposition. Disposition/Present on Arrival - Present on Arrival Any Indicators Present on Arrival: No History of DVT/PE: No History of Uncontrolled Diabetes: No Urinary Catheter: No History of Decub. Ulcer: No History Surgical Site Infection Following: None - Disposition Have Diagnosis and Disposition been Completed?: Yes Diagnosis: UTI (urinary tract infection), Orthostatic hypotension Disposition: HOME/ ROUTINE Disposition Time: 11:30 Patient Plan: Discharge Condition: IMPROVED Discharge Instructions (ExitCare): Orthostatic Hypotension (DC), Urinary Tract Infection, Adult (DC) Print Language: IRISH Prescriptions: Cephalexin [cephalexin] 500 mg PO BID 5 Days #10 cap Meclizine [Antivert] 12.5 mg PO PRN PRN #10 tab PRN Reason: Nausea/Vomiting Referrals: Esteban Pearl MD [Staff Provider] - Follow up with primary Forms: [facility] (Malaysian)
[2018-01-19 09:46] LABS: ALB/GLOB RATIO 1.3 (1.1-1.8); ALBUMIN 3.6 g/dL (3.0-4.8); ALT/SGPT 70 U/L (7-56); AST/SGOT 54 U/L (14-36); BLOOD UREA NITROGEN 12 mg/dL (7-21); CALCIUM 9.3 mg/dL (8.4-10.5); GFR NON-AFRICAN AMERICAN > 60
[2018-01-19 09:57] LABS: TROPONIN I < 0.01 ng/mL
[2018-01-19 10:01] LABS: URINE BILIRUBIN NEGATIVE (NEGATIVE); URINE BLOOD MODERATE (NEGATIVE); URINE GLUCOSE (UA) NEGATIVE (NEGATIVE); URINE LEUKOCYTE ESTERASE NEGATIVE Leu/uL (NEGATIVE); URINE PROTEIN NEGATIVE mg/dL (<30 mg/dL); URINE UROBILINOGEN 0.2 E.U./dL (<1 E.U./dL)
[2018-01-19 10:03] LABS: URINE APPEARANCE SL CLOUDY (CLEAR); URINE COLOR YELLOW (YELLOW)
[2018-01-19 10:16] LABS: URINE BACTERIA MOD (NEG); URINE CALCIUM OXALATE CRYSTALS OCC /hpf; URINE RBC 15 - 20 /hpf (0-2)
--- NOTE | 2018-01-19 10:20 | RAD ---
Date of service: 01/19/2018 HISTORY: wheezing COMPARISON: 12/18/2017 FINDINGS: LUNGS: No active pulmonary disease. PLEURA: No significant pleural effusion identified, no pneumothorax apparent. CARDIOVASCULAR: No aortic atherosclerotic calcification present. Normal cardiac size. No pulmonary vascular congestion. OSSEOUS STRUCTURES: No significant abnormalities. VISUALIZED UPPER ABDOMEN: Normal. OTHER FINDINGS: None. IMPRESSION: No active disease.
[2018-01-19] MEDS ORDERED: Potassium Chloride 20 mEq/15 ml LIQ UD PO STA (10:45)
[2018-01-19 11:40] VITALS: BP 118/75; PULSE 85; O2SAT 99
--- NOTE | 2018-01-19 13:29 | CARD ---
APPROVED REPORT Date of service: 01/19/2018 EKG Measurement Heart [id number] <Conclusion> Normal sinus rhythm Normal ECG
== END 2018-01-19 11:41 | disposition home or self-care (01) ==
LOC: ED 08:51
DX: I95.1 Orthostatic hypotension (principal); N39.0 Urinary tract infection, site not specified; I71.4 Abdominal aortic aneurysm, without rupture
CPT/HCPCS: 71045; 80053; 81001; 82948; 84484; 85025; 93005; 96361; 96374; 99285; J2765; J7030

== ENCOUNTER 2018-02-04 21:09 | Inpatient (IN) | payer MEDICARE, OTHER ==
[2018-02-04 21:10] VITALS: BMI 30.1
[2018-02-04] MEDS ORDERED: Morphine 4 mg/ml ISec IM STA (21:34)
[2018-02-04 22:06] LABS: PH,URINE 6.5 (4.7-8.0); URINE BILIRUBIN NEGATIVE (NEGATIVE); URINE BLOOD LARGE (NEGATIVE); URINE GLUCOSE (UA) NEGATIVE (NEGATIVE); URINE LEUKOCYTE ESTERASE TRACE Leu/uL (NEGATIVE); URINE PROTEIN NEGATIVE mg/dL (<30 mg/dL); URINE UROBILINOGEN 0.2 E.U./dL (<1 E.U./dL)
[2018-02-04 22:13] LABS: URINE APPEARANCE SL CLOUDY (CLEAR); URINE COLOR YELLOW (YELLOW)
[2018-02-04 22:26] LABS: URINE BACTERIA MOD (NEG); URINE RBC TNTC /hpf (0-2)
--- NOTE | 2018-02-04 22:27 | ED PDOC ---
Arrival/HPI <Jorge L Oquendo - Last Filed: 02/04/18 23:37> - General Historian: Patient - History of Present Illness Narrative History of Present Illness (Text): 02/04/18 22:23 52yo female with pmhx of hypertension, hypothyroid, anxiety, GERD, fibromyalgia, kidney stone who present with 2days history of left sided back pain and left pelvic pain. States she started having urinary frequency one hour [employer]. Describes pain as sharp and constant. Denies any exacerbating/relieving factors. States the last time she had kidney stone was 2years ago. She denies nausea, vomiting, hematuria, fever, chills, urinary/fecal incontinence, dyusria, any other complaint. <Mukesh Navarrete - Last Filed: 02/05/18 01:10> - General Chief Complaint: Back Pain Time Seen by Provider: 02/04/18 21:24 Past Medical History - Provider Review Nursing Documentation Reviewed: Yes - Infectious Disease Hx of Infectious Diseases: None - Tetanus Immunization Tetanus Immunization: Up to Date - Cardiac Hx Cardiac Disorders: Yes (cp) Hx Hypertension: Yes Other/Comment: AAA "went away" pt stated - Pulmonary Hx Respiratory Disorders: Yes (SMOKES MARIJUANA FOR HER FRIBROMYALGIA) Hx Asthma: Yes Hx Bronchitis: Yes Hx Pneumonia: Yes - Neurological Hx Neurological Disorder: Yes - HEENT Hx HEENT Disorder: Yes (sinusitis) - Renal Hx Renal Disorder: Yes (renal colic) Hx Kidney Stones: Yes Other/Comment: cystos with laser lithotripsy and stent - Endocrine/Metabolic Hx Endocrine Disorders: Yes Hx Hypothyroidism: Yes - Hematological/Oncological Hx Blood Disorders: Yes Hx Hepatitis C: Yes (under control) - Integumentary Hx Dermatological Disorder: No - Musculoskeletal/Rheumatological Hx Musculoskeletal Disorders: Yes Hx Falls: No - Gastrointestinal Hx Gastrointestinal Disorders: Yes (GASTRIC SLEEVE) Hx Gastroesophageal Reflux: Yes - Genitourinary/Gynecological Hx Genitourinary Disorders: Yes Hx Urinary Tract Infection: Yes - Psychiatric Hx Psychophysiologic Disorder: Yes Hx Anxiety: Yes Hx Emotional Abuse: No Hx Physical Abuse: No Hx Substance Use: No (SOCIALLY SMOKES MARIJUANA EVERY NOW AND THEN. LAST SMOKED 2 MOS AGO.) - Past Surgical History Past Surgical History: No Previous - Surgical History Hx Hysterectomy: Yes (partial due to fibroids) Other/Comment: RENAL STENTS, bariatric sx 09/26/17 lost 27 lbs, thyroid bx, cervical disc sx 2 disks removed from neck, epidural,b/l carpal tunnel, multiple cystos,GASTRIC SLEEVE. - Anesthesia Hx Anesthesia: Yes Hx Anesthesia Reactions: No Hx Malignant Hyperthermia: No - Suicidal Assessment Feels Threatened In Home Enviroment: No <Mukesh Navarrete A - Last Filed: 02/05/18 01:10> Family/Social History - Physician Review Nursing Documentation Reviewed: Yes Family/Social History: Unknown Family HX Smoking Status: Never Smoked Hx Alcohol Use: Yes (OCCASIONALLY) Hx Substance Use: No (SOCIALLY SMOKES MARIJUANA EVERY NOW AND THEN. LAST SMOKED 2 MOS AGO.) Hx Substance Use Treatment: No <Mukesh Navarrete A - Last Filed: 02/05/18 01:10> Allergies/Home Meds <Jorge L Oquendo - Last Filed: 02/04/18 23:37> <Mukesh Navarrete A - Last Filed: 02/05/18 01:10> Allergies/Adverse Reactions: Allergies No Known Allergies Allergy (Verified 12/19/17 17:36) Home Medications: Home Meds Medication Instructions Recorded Confirmed RX: Levothyroxine Sodium 175 mcg PO QAM 04/11/16 01/16/18 [Synthroid] RX: Albuterol HFA [Ventolin HFA 90 2 puff IH TID PRN 04/24/16 01/16/18 mcg/actuation (8 g)] RX: Nortriptyline HCl [Pamelor] 25 mg PO HS 04/24/16 01/16/18 RX: Carisoprodol [Soma] 350 mg PO DAILY 06/01/17 01/16/18 RX: Fluticasone/Vilanterol [Breo 1 cap NEB DAILY 06/01/17 01/16/18 Ellipta 100-25 Mcg INH] RX: Oxycodone HCl/Acetaminophen 1 tab PO BID PRN 06/01/17 01/16/18 [Percocet 10-325 mg Tablet] RX: clonazePAM [Klonopin] 1 mg PO DAILY PRN 06/01/17 01/16/18 RX: traZODone [Desyrel] 50 mg PO DAILY PRN 06/01/17 01/16/18 Review of Systems - Physician Review All systems were reviewed & negative as marked: Yes - Review of Systems Constitutional: Normal Eyes: Normal ENT: Normal Respiratory: Normal Cardiovascular: Normal Gastrointestinal: Abdominal Pain. absent: Constipation, Diarrhea, Nausea, Vomiting, Hematochezia, Hematemesis Genitourinary Female: Normal Musculoskeletal: Back Pain Skin: Normal Neurological: Normal Endocrine: Normal Hemo/Lymphatic: Normal Psychiatric: Normal <Diru,Happiness A - Last Filed: 02/05/18 01:10> Physical Exam Vital Signs Temp Pulse Resp BP Pulse Ox 02/04/18 21:26 97.5 F L 79 20 136/74 96 <Jorge L Oquendo - Last Filed: 02/04/18 23:37> Vital Signs Reviewed: Yes Vital Signs Temp Pulse Resp BP Pulse Ox 02/04/18 21:26 97.5 F L 79 20 136/74 96 Temperature: Afebrile Blood Pressure: Normal Pulse: Regular Respiratory Rate: Normal Appearance: Positive for: Well-Appearing, Non-Toxic, Comfortable Pain Distress: None Mental Status: Positive for: Alert and Oriented X 3 - Systems Exam Head: Present: Atraumatic, Normocephalic Pupils: Present: PERRL Extroacular Muscles: Present: EOMI Conjunctiva: Present: Normal Mouth: Present: Moist Mucous Membranes Neck: Present: Normal Range of Motion Respiratory/Chest: Present: Clear to Auscultation, Good Air Exchange. No: Respiratory Distress, Accessory Muscle Use Cardiovascular: Present: Regular Rate and Rhythm, Normal S1, S2. No: Murmurs Abdomen: Present: Tenderness (Left pelvic tenderness), Normal Bowel Sounds, Guarding (Guarding), Other (soft). No: Distention, Peritoneal Signs, Rebound, McBurney's Point Tender, Rovsing's Sign Present Back: Present: Paraspinal Tenderness (LEft paraspinous). No: CVA Tenderness, Midline Tenderness Upper Extremity: Present: Normal Inspection. No: Cyanosis, Edema Lower Extremity: Present: Normal Inspection. No: Edema Neurological: Present: GCS=15, CN II-XII Intact, Speech Normal Skin: Present: Warm, Dry, Normal Color. No: Rashes Psychiatric: Present: Alert, Oriented x 3, Normal Insight, Normal Concentration <Diru,Happiness A - Last Filed: 02/05/18 01:10> Medical Decision Making - Lab Interpretations Lab Results: 02/04/18 23:19 Lab Results 02/04/18 23:19: WBC 13.6 H D, RBC 5.27, Hgb 16.0, Hct 46.2, MCV 87.7, MCH 30.4, MCHC 34.6, RDW 13.7, Plt Count 264, MPV 9.3, Gran % 67.9, Lymph % (Auto) 21.5 L, [place] % (Auto) 8.0 H, Eos % (Auto) 2.5, Baso % (Auto) 0.1, Gran # 9.20 H, Lymph # (Auto) 2.9, [place] # (Auto) 1.1 H, Eos # (Auto) 0.3, Baso # (Auto) 0.02 02/04/18 21:50: Urine Color Yellow, Urine Appearance Sl cloudy, Urine pH 6.5, Ur Specific [place] 1.015, Urine Protein Negative, Urine Glucose (UA) Negative, Urine Ketones Negative, Urine Blood Large H, Urine Nitrate Negative, Urine Bilirubin Negative, Urine Urobilinogen 0.2, Ur Leukocyte Esterase Trace H, Urine RBC Tntc, Urine WBC 5 - 10, Ur Epithelial Cells 6 - 8, Urine Bacteria Mod - RAD Interpretation Radiology Orders: 02/04/18 21:33 ABD & PELVIS W/O PO OR IV CONT [CT] Stat - Medication Orders Current Medication Orders: Sodium Chloride (Sodium Chloride 0.9%) 1,000 mls @ 999 mls/hr IV .Q1H1M STA Stop: 02/04/18 23:38 Last Admin: 02/04/18 23:08 Dose: 999 mls/hr eMAR Start Stop Document 02/04/18 23:08 CNR (Rec: 02/04/18 23:08 CNR [id number]) Intravenous Solution Start Date 02/04/18 Start Time 23:08 End Date 02/05/18 End time 00:08 Total Infusion Time 60 Ciprofloxacin (Cipro 400mg/200ml Dsw) 400 mg in 200 mls @ 133.3 mls/hr IVPB STAT STA; Protocol Stop: 02/05/18 00:44 Last Admin: 02/04/18 23:31 Dose: 133.3 mls/hr eMAR Start Stop Document 02/04/18 23:31 CNR (Rec: 11/28/18 23:36 CNR [id number]) Intravenous Solution Start Date 02/04/18 Start Time 23:35 Discontinued Medications Ketorolac Tromethamine (Toradol) 30 mg IVP STAT STA Stop: 02/04/18 22:39 Last Admin: 02/04/18 23:08 Dose: 30 mg MAR Pain Assessment Document 02/04/18 23:08 CNR (Rec: 02/04/18 23:08 CNR [id number]) Pain Reassessment Is this a pain reassessment? No IVP Administration Document 02/04/18 23:08 CNR (Rec: 02/04/18 23:08 CNR [id number]) Charges for Administration # of IVP Administrations 1 Morphine Sulfate (Morphine) 4 mg IM STAT STA Stop: 02/04/18 21:35 Last Admin: 02/04/18 21:58 Dose: 4 mg MAR Pain Assessment Document 02/04/18 21:58 CNR (Rec: 02/04/18 21:58 CNR [id number]) Pain Reassessment Is this a pain reassessment? No IM Administration Charges Document 02/04/18 21:58 CNR (Rec: 02/04/18 21:58 CNR [id number]) Injection Site MAR Injection Site Left Deltoid Charges for Administration # of IM Administrations 1 Ondansetron HCl (Zofran Inj) 4 mg IVP STAT STA Stop: 02/04/18 23:22 Last Admin: 02/04/18 23:36 Dose: 4 mg IVP Administration Document 02/04/18 23:36 CNR (Rec: 02/04/18 23:36 CNR [id number]) Charges for Administration # of IVP Administrations 1 <Jorge L Oquendo - Last Filed: 02/04/18 23:37> ED Course and Treatment: 02/05/18 01:05 PT presented to eD for stated history Labs UA Abdominal/Pelvic CT 1L NS, Morphine, Zofran PT continued to complain of pain in ED and Toradol 30mg was ordered Abdominal/Pelvic CT Impression: 1. Moderately severe left-sided hydronephrosis and hydroureter caused by a 2 mm obstructing stone at the left ureterovesical junction. 2. Extensive bilateral nephrolithiasis. 3. No obstructive or inflammatory bowel changes. Result was DW Dr. Cagle who referred pt to the ED and he requested that pt be admitted to the Hospitalist and he will see pt tomorrow. UA +Large blood, trace Leuk, WBC Lab leukocytosis was noted. Elevated LFT was noted, pt however have h/o hep C. Cipro was ordered Case was VICTORIANO Bowie and he accepted pt for admission - Lab Interpretations Lab Results: Lab Results 02/04/18 21:50: Urine Color Yellow, Urine Appearance Sl cloudy, Urine pH 6.5, Ur Specific [place] 1.015, Urine Protein Negative, Urine Glucose (UA) Negative, Urine Ketones Negative, Urine Blood Large H, Urine Nitrate Negative, Urine Bilir ubin Negative, Urine Urobilinogen 0.2, Ur Leukocyte Esterase Trace H, Urine RBC Pending, Urine WBC Pending - RAD Interpretation Radiology Orders: 02/04/18 21:33 ABD & PELVIS W/O PO OR IV CONT [CT] Stat - Medication Orders Current Medication Orders: Discontinued Medications Morphine Sulfate (Morphine) 4 mg IM STAT STA Stop: 02/04/18 21:35 Last Admin: 02/04/18 21:58 Dose: 4 mg MAR Pain Assessment Document 02/04/18 21:58 CNR (Rec: 02/04/18 21:58 CNR [id number]) Pain Reassessment Is this a pain reassessment? No IM Administration Charges Document 02/04/18 21:58 CNR (Rec: 02/04/18 21:58 CNR [id number]) Injection Site MAR Injection Site Left Deltoid Charges for Administration # of IM Administrations 1 <Mukesh Navarrete - Last Filed: 02/05/18 01:10> - PA / MEDICAL STAFF CREDENTIALING COORDINATOR / Resident Statement JACOBO has reviewed & agrees with the documentation as recorded. JACOBO has examined the patient and agrees with the treatment plan. <Jorge L Oquendo - Last Filed: 02/04/18 23:37> Disposition/Present on Arrival <Jorge L Oquendo - Last Filed: 02/04/18 23:37> - Present on Arrival Any Indicators Present on Arrival: No History of DVT/PE: No History of Uncontrolled Diabetes: No Urinary Catheter: No History of Decub. Ulcer: No History Surgical Site Infection Following: None - Disposition Have Diagnosis and Disposition been Completed?: Yes Disposition Time: 23:15 Patient Plan: Admission <Mukesh Navarrete - Last Filed: 02/05/18 01:10> - Disposition Diagnosis: Kidney stone, Ureter colic, Elevated liver enzymes, Leukocytosis Disposition: HOSPITALIZED Patient Problems: Current Active Problems Problem Status Onset Kidney stone Acute Ureter colic Acute Condition: FAIR
[2018-02-04] MEDS ORDERED: Sodium Chloride 0.9% 1,000 ML IV STA (22:38)
[2018-02-04] MEDS ORDERED: Ciprofloxacin 400mg/200ml D5W 400 MG/200 ML BAG IVPB STA (23:14)
[2018-02-04 23:25] LABS: BASO # 0.02 K/mm3 (0.0-2.0); BASO % 0.1 % (0.0-3.0); EOS # 0.3 (0.0-0.7); EOS % 2.5 % (1.5-5.0); GRAN # 9.2 (1.4-6.5); GRAN % 67.9 % (50.0-68.0); LYMPH # 2.9 (1.2-3.4); LYMPH % 21.5 % (22.0-35.0); MEAN CELL VOLUME 87.7 fl (80.0-105.0); MEAN CORPUSCULAR HEMOGLOBIN 30.4 pg (25.0-35.0); MEAN CORPUSCULAR HGB CONC 34.6 g/dl (31.0-37.0); MEAN PLATELET VOLUME 9.3 fl (7.0-11.0); MONO # 1.1 (0.1-0.6); RBC 5.27 10^6/uL (3.5-6.1); RED CELL DISTRIBUTION WIDTH 13.7 % (11.5-14.5); WHITE BLOOD COUNT 13.6 10^3/uL (4.5-11.0)
[2018-02-04] MEDS ORDERED: Oxycodone/Acetaminophen 10/325 mg Tab PO PRN (23:56)
[2018-02-05 00:02] LABS: ALB/GLOB RATIO 1.3 (1.1-1.8); ALBUMIN 4.4 g/dL (3.0-4.8); ALT/SGPT 59 U/L (7-56); AST/SGOT 49 U/L (14-36); BLOOD UREA NITROGEN 16 mg/dL (7-21); CALCIUM 9.8 mg/dL (8.4-10.5); GFR NON-AFRICAN AMERICAN 58
[2018-02-05] MEDS: Morphine 4 mg/ml ISec IVP PRN ×5 (00:12→20:14)
--- NOTE | 2018-02-05 00:17 | CP.PCM.HP ---
History of Present Illness - History of Present Illness History of Present Illness: Dalia Akhtar PGY1 H&P for Dr. Bowie Pt is a 52F with PMH nephrolithiasis, HTN, hypothyroid, anxiety, fibromyalgia, GERD, and asthma who presents to ED with L sided abdominal pain for 2 days. She reports intermittent pain that she describes as stabbing and cramping, which became constant earlier this evening. She claims the pain radiates to the L back. She reports previous history of this pain upon episodes of kidney stones. She reports seeing urologist Dr. Bonnie Cagle last month but being told the stones were too small for intervention. Pt reports associated nausea, but denies vomiting, fever, or chills. She also reports burning with urination and increased urinary frequency. She denies blood in the urine. Pt denies chest pain, shortness of breath, constipation, diarrhea. In the ED, CT abdomen showed moderate to severe L sided hydronephrosis by 2mm stone at the uretovessicular junction, and b/l nephrolithiasis. SxH: partial hysterectomy 2015, gastric sleeve 09/2017 SocH: denies tobacco use, reports occasional etoh use, reports daily marijuana use FamH: mom - fibromyalgia, dad - , liver cancer Allergies: NKDA Meds: as per EMR PMD: Dr. Whiting Present on Admission - Present on Admission Any Indicators Present on Admission: No Review of Systems - Review of Systems Review of Systems: as per HPI Past Patient History - Infectious Disease Hx of Infectious Diseases: None - Tetanus Immunizations Tetanus Immunization: Up to Date - Past Medical History & Family History Past Medical History?: Yes - Past Social History Smoking Status: Never Smoked - CARDIAC Hx Cardiac Disorders: Yes (cp) Hx Hypertension: Yes Other/Comment: AAA "went away" pt stated - PULMONARY Hx Respiratory Disorders: Yes (SMOKES MARIJUANA FOR HER FRIBROMYALGIA) Hx Asthma: Yes Hx Bronchitis: Yes Hx Pneumonia: Yes - NEUROLOGICAL Hx Neurological Disorder: Yes - HEENT Hx HEENT Problems: Yes (sinusitis) - RENAL Hx Chronic Kidney Disease: Yes (renal colic) Hx Kidney Stones: Yes Other/Comment: cystos with laser lithotripsy and stent - ENDOCRINE/METABOLIC Hx Endocrine Disorders: Yes Hx Hypothyroidism: Yes - HEMATOLOGICAL/ONCOLOGICAL Hx Blood Disorders: Yes Hx Hepatitis C: Yes (under control) - INTEGUMENTARY Hx Dermatological Problems: No - MUSCULOSKELETAL/RHEUMATOLOGICAL Hx Musculoskeletal Disorders: Yes Hx Falls: No - GASTROINTESTINAL Hx Gastrointestinal Disorders: Yes (GASTRIC SLEEVE) Hx Gastroesophageal Reflux: Yes - GENITOURINARY/GYNECOLOGICAL Hx Genitourinary Disorders: Yes Hx Urinary Tract Infection: Yes - PSYCHIATRIC Hx Psychophysiologic Disorder: Yes Hx Anxiety: Yes Hx Emotional Abuse: No Hx Physical Abuse: No Hx Substance Use: No (SOCIALLY SMOKES MARIJUANA EVERY NOW AND THEN. LAST SMOKED 2 MOS AGO.) - SURGICAL HISTORY Hx Hysterectomy: Yes (partial due to fibroids) Other/Comment: RENAL STENTS, bariatric sx 09/26/17 lost 27 lbs, thyroid bx, cervical disc sx 2 disks removed from neck, epidural,b/l carpal tunnel, multiple cystos,GASTRIC SLEEVE. - ANESTHESIA Hx Anesthesia: Yes Hx Anesthesia Reactions: No Hx Malignant Hyperthermia: No Meds Allergies/Adverse Reactions: Allergies Allergy/AdvReac Type Severity Reaction Status Date / Time No Known Allergies Allergy Verified 12/19/17 17:36 Physical Exam - Constitutional Appears: In Acute Distress - Head Exam Head Exam: ATRAUMATIC, NORMOCEPHALIC - Eye Exam Eye Exam: EOMI, Normal appearance, PERRL Pupil Exam: NORMAL ACCOMODATION - ENT Exam ENT Exam: Mucous Membranes Moist - Neck Exam Neck exam: Positive for: Normal Inspection - Respiratory Exam Respiratory Exam: Clear to Auscultation Bilateral, NORMAL BREATHING PATTERN. absent: Rales, Rhonchi, Wheezes, Respiratory Distress - Cardiovascular Exam Cardiovascular Exam: REGULAR RHYTHM, +S1, +S2. absent: Gallop, Rubs, Systolic Murmur - GI/Abdominal Exam GI & Abdominal Exam: Normal Bowel Sounds, Soft, Tenderness. absent: Distended, Firm, Guarding Additional comments: tenderness to palpation of LUQ, LLQ suprapubic tenderness - Extremities Exam Extremities exam: Positive for: normal inspection. Negative for: calf tenderness, pedal edema - Back Exam Back exam: CVA tenderness (L), tenderness. absent: CVA tenderness (R) - Neurological Exam Neurological exam: Alert, Oriented x3 - Psychiatric Exam Psychiatric exam: Anxious - Skin Skin Exam: Normal Color Results - Vital Signs Recent Vital Signs: Last Vital Signs Temp 97.5 F L 02/04/18 21:26 Pulse 79 02/04/18 21:26 Resp 20 02/04/18 21:26 BP 136/74 11/28/18 21:26 Pulse Ox 96 02/04/18 21:26 - Labs Result Diagrams: 02/04/18 23:19 02/04/18 23:19 Labs: Laboratory Results - last 24 hr 02/04/18 02/04/18 02/04/18 21:50 23:19 23:19 WBC 13.6 H D RBC 5.27 Hgb 16.0 Hct 46.2 MCV 87.7 MCH 30.4 MCHC 34.6 RDW 13.7 Plt Count 264 MPV 9.3 Gran % 67.9 Lymph % (Auto) 21.5 L [place] % (Auto) 8.0 H Eos % (Auto) 2.5 Baso % (Auto) 0.1 Gran # 9.20 H Lymph # (Auto) 2.9 [place] # (Auto) 1.1 H Eos # (Auto) 0.3 Baso # (Auto) 0.02 Sodium 140 Potassium 3.5 L Chloride 102 Carbon Dioxide 29 Anion Gap 13 BUN 16 Creatinine 1.0 Est GFR ( Amer) > 60 Est GFR (Non-Af Amer) 58 Random Glucose 98 Calcium 9.8 Total Bilirubin 0.7 AST 49 H ALT 59 H Alkaline Phosphatase 105 Total Protein 7.9 Albumin 4.4 Globulin 3.5 Albumin/Globulin Ratio 1.3 Urine Color Yellow Urine Appearance Sl cloudy Urine pH 6.5 Ur Specific [place] 1.015 Urine Protein Negative Urine Glucose (UA) Negative Urine Ketones Negative Urine Blood Large H Urine Nitrate Negative Urine Bilirubin Negative Urine Urobilinogen 0.2 Ur Leukocyte Esterase Trace H Urine RBC Tntc Urine WBC 5 - 10 Ur Epithelial Cells 6 - 8 Urine Bacteria Mod Assessment & Plan - Assessment and Plan (Free Text) Assessment: 52F with PMH nephrolithiasis, HTN, hypothyroid, anxiety, fibromyalgia, GERD, and asthma who presents to ED with L sided abdominal pain for 2 days admitted for treatment of nephrolithiasis. Plan: Nephrolithiasis - CT abdomen: moderate to severe L sided hydronephrosis by 2mm stone at the uretovessicular junction, and b/l nephrolithiasis - UA: trace leuk esterase, large blood - NS @150cc/hr - toradol 30mg IVP q6h PRN mod pain - morphine 4mg IV q4h PRN severe pain - zofran 4mg IV q6h PRN - flomax 0.4mg PO daily - f/u UCx - strain urine for calculi - Urology consulted, Dr. Lito Cagle - f/u recs HTN - continue home norvasc 10mg po daily - continue home ASA 81 po daily Hypothyroid - synthroid 150mc PO daily - f/u TSH, free T4 - call [facility] [address] when open to confirm dose Asthma - continue home breo ellipta 1 puff daily - continue home ventolin 2 puff TID PRN Anxiety - continue home klonopin 1mg po daily - continue home nortriptyline 25mg PO HS - continue home trazodone 50mg PO daily Fibromyalgia - continue home percocet 1 tab po BID PRN - continue home Soma 350mg PO daily PPX GI: pepcid 20mg BID DVT: SCDs NPO except meds Case reviewed with Dr. Bowie
[2018-02-05] MEDS: Sodium Chloride 0.9% 1,000 ML IV SCH ×2 (00:30→06:57)
[2018-02-05 00:47] LABS: INR 1.04; PARTIAL THROMBOPLASTIN TIME 30.2 Seconds (25.1-36.5); PROTHROMBIN TIME 11.9 SECONDS (9.4-12.5)
[2018-02-05] MEDS ORDERED: Albuterol 0.083% Inhal Sol (2.5 mg/3 mL) UD IH PRN (00:58)
[2018-02-05 01:06] LABS: FREE T4 1.42 ng/dL (0.78-2.19)
[2018-02-05] MEDS ORDERED: HYDROmorphone 0.5 mg/0.5 ml ISec IVP STA (02:02)
[2018-02-05] MEDS ORDERED: Influenza Vaccine 60 mcg/0.5 mL SYR (4YR UP) IM ONE (02:10)
[2018-02-05] MEDS ORDERED: Pneumococcal 23-Valent Vaccine IM ONE (02:10)
[2018-02-05] MEDS: Levothyroxine 150 MCG TAB PO SCH (05:39)
[2018-02-05 06:21] LABS: BASO # 0.01 K/mm3 (0.0-2.0); BASO % 0.1 % (0.0-3.0); EOS # 0.4 (0.0-0.7); EOS % 3.9 % (1.5-5.0); GRAN # 5.56 (1.4-6.5); GRAN % 61.7 % (50.0-68.0); LYMPH # 2.4 (1.2-3.4); LYMPH % 26.7 % (22.0-35.0); MEAN CORPUSCULAR HEMOGLOBIN 29.4 pg (25.0-35.0); MEAN CORPUSCULAR HGB CONC 33.4 g/dl (31.0-37.0); MEAN PLATELET VOLUME 9.4 fl (7.0-11.0); MONO # 0.7 (0.1-0.6); MONO % 7.6 % (1.0-6.0); RBC 4.59 10^6/uL (3.5-6.1); RED CELL DISTRIBUTION WIDTH 13.6 % (11.5-14.5)
[2018-02-05 06:27] LABS: HEMOGLOBIN 13.5 g/dL (12.0-16.0)
[2018-02-05 06:48] LABS: ALB/GLOB RATIO 1.3 (1.1-1.8); ALBUMIN 3.4 g/dL (3.0-4.8); ALT/SGPT 54 U/L (7-56); AST/SGOT 31 U/L (14-36); BLOOD UREA NITROGEN 12 mg/dL (7-21); GFR NON-AFRICAN AMERICAN > 60
--- NOTE | 2018-02-05 08:58 | CT ---
Date of service: 02/04/2018 PROCEDURE: CT Abdomen and Pelvis without intravenous contrast HISTORY: Left back/pelvic pain COMPARISON: None. TECHNIQUE: Without contrast. Contrast dose: Radiation dose: Total exam DLP = 711.64 mGy-cm. This CT exam was performed using one or more of the following dose reduction techniques: Automated exposure control, adjustment of the mA and/or kV according to patient size, and/or use of iterative reconstruction technique. FINDINGS: LOWER THORAX: Suture line is seen in the stomach LIVER: Unremarkable. No gross lesion or ductal dilatation. GALLBLADDER AND BILE DUCTS: Unremarkable. PANCREAS: Unremarkable. No gross lesion or ductal dilatation. SPLEEN: Unremarkable. ADRENALS: Unremarkable. No mass. KIDNEYS AND URETERS: There is a 4 mm obstructing stone at the left UVJ. There is moderate to severe hydronephrosis and hydroureter. Bilateral nephrolithiasis VASCULATURE: Unremarkable. No aortic aneurysm. Aortic calcification BOWEL: Unremarkable. No obstruction. No gross mural thickening. APPENDIX: Unremarkable. Normal appendix. PERITONEUM: Unremarkable. No free fluid. No free air. LYMPH NODES: Unremarkable. No enlarged lymph nodes. BLADDER: Unremarkable. REPRODUCTIVE: Unremarkable. BONES: No acute fracture. OTHER FINDINGS: The report concurs with the preliminary [facility] report IMPRESSION: There is a 4 mm obstructing stone at the left UVJ. There is moderate to severe hydronephrosis and hydroureter. Bilateral nephrolithiasis
[2018-02-05] MEDS: cefTRIAXone 1 gm 1 GM/100 ML BAG IVPB SCH (11:30)
[2018-02-05] MEDS: Albuterol 0.083% Inhal Sol (2.5 mg/3 mL) UD IH PRN (13:30)
[2018-02-05] MEDS ORDERED: Dextrose 5%/0.45% NS 1,000 ML IV SCH (17:15)
--- NOTE | 2018-02-05 19:36 | HP ---
DATE OF EXAM: 02/05/2018 HISTORY OF PRESENT ILLNESS: The patient is a 52-year-old, seen and examined, known to me from previous admission. The patient states yesterday she started to have left-sided flank pain. She states initially she had pain in the left upper quadrant then radiated towards the left lower. Initially, she thought this is gas. Per given previous experience, she stated that this pain is almost similar when she had kidney stones before, so she came to emergency room for further evaluation. PHYSICAL EXAMINATION: GENERAL: The patient is awake, alert, oriented, and communicative. VITAL SIGNS: She is afebrile, pulse 70, respirations 18, and blood pressure 119/77. LUNGS: Bilateral fair airflow. No rhonchi or crackle. HEART: S1 and S2 audible. ABDOMEN: Soft. Left lower quadrant discomfort. No rebound. No guarding. NEUROLOGIC: She is awake, alert, oriented, and communicative. LABORATORY DATA: WBC 9, hemoglobin 13.5, hematocrit 40.4, and platelet 231. PT 11.9 and INR 1.04. Chemistry: Sodium 141, potassium 3.2, chloride 104, CO2 of 31, BUN 12, creatinine 0.7, and blood sugar of 92. Yesterday, AST was elevated, today it is normal. She had CT scan of the abdomen and pelvis done yesterday that shows 4-mm obstructing stone at the left UV junction, [id number]-[id number] hydronephrosis, and bilateral nephrolithiasis. ASSESSMENT: 1. Left renal colic. 2. Left ureterovesical junction nephrolithiasis. 3. History of asthma. 4. History of gastroesophageal reflux disease. 5. History of gastric sleeve, having multiple episodes of dysphagia when she does not her food. PLAN: Currently, the patient is on aspirin 81 daily. She is on as usual medications. She is on morphine 4 mg every 4 hours p.r.n. She is on Rocephin. She is on levothyroxine. Continue her on IV fluids. Awaiting Dr. Cagle's input. Holger Coreas MD
[2018-02-06] MEDS: Morphine 4 mg/ml ISec IVP PRN ×3 (00:24→09:05)
[2018-02-06] MEDS: Levothyroxine 150 MCG TAB PO SCH (05:23)
[2018-02-06] MEDS: Albuterol 0.083% Inhal Sol (2.5 mg/3 mL) UD IH PRN (07:48)
[2018-02-06] MEDS: cefTRIAXone 1 gm 1 GM/100 ML BAG IVPB SCH (09:07)
[2018-02-06] MEDS: VILANTEROL NEB SCH (09:08)
[2018-02-06] MEDS: FLUTICASONE NEB SCH (09:08)
[2018-02-06 10:03] LABS: BASO # 0.02 K/mm3 (0.0-2.0); BASO % 0.3 % (0.0-3.0); EOS # 0.4 (0.0-0.7); EOS % 5.9 % (1.5-5.0); GRAN # 3.57 (1.4-6.5); GRAN % 52.9 % (50.0-68.0); LYMPH # 2.3 (1.2-3.4); LYMPH % 34.7 % (22.0-35.0); MEAN CELL VOLUME 88.5 fl (80.0-105.0); MEAN CORPUSCULAR HEMOGLOBIN 29.9 pg (25.0-35.0); MEAN CORPUSCULAR HGB CONC 33.8 g/dl (31.0-37.0); MEAN PLATELET VOLUME 9.1 fl (7.0-11.0); MONO # 0.4 (0.1-0.6); MONO % 6.2 % (1.0-6.0); RBC 4.68 10^6/uL (3.5-6.1); RED CELL DISTRIBUTION WIDTH 13.5 % (11.5-14.5); WHITE BLOOD COUNT 6.8 10^3/uL (4.5-11.0)
[2018-02-06 10:18] LABS: ALB/GLOB RATIO 1.3 (1.1-1.8); ALBUMIN 3.7 g/dL (3.0-4.8); ALT/SGPT 61 U/L (7-56); AST/SGOT 44 U/L (14-36); BLOOD UREA NITROGEN 6 mg/dL (7-21); CALCIUM 9.1 mg/dL (8.4-10.5); GFR NON-AFRICAN AMERICAN > 60
[2018-02-06] MEDS: HYDROmorphone 1 mg/ml ISec IVP PRN ×3 (13:30→22:17)
[2018-02-06] MEDS ORDERED: Propofol 10 mg/ml Inj (20 ML) ONE (14:35)
[2018-02-06] MEDS ORDERED: Midazolam 2 MG/2 ML VIAL ONE (14:36)
[2018-02-06] MEDS ORDERED: Iohexol 240 (50 ml) ONE (15:56)
[2018-02-06] MEDS ORDERED: cefTRIAXone (Rocephin) 1 gm Inj IVPB ONE (16:15)
[2018-02-06] MEDS ORDERED: cefTRIAXone (Rocephin) 1 gm Inj ONE (16:18)
[2018-02-06] MEDS ORDERED: HYDROmorphone 0.5 mg/0.5 ml ISec IVP PRN (16:52)
[2018-02-06] MEDS ORDERED: Lactated Ringer's 1,000 ML IV SCH (17:00)
[2018-02-07] MEDS: HYDROmorphone 1 mg/ml ISec IVP PRN (04:00)
--- NOTE | 2018-02-07 05:28 | DS ---
HISTORY OF PRESENT ILLNESS: The patient is a 52-year-old, seen and examined, still has left flank discomfort, off and on gets shooting pain, n.p.o. for the procedure. PHYSICAL EXAMINATION: VITAL SIGNS: She is afebrile. Pulse 53, respirations 20, blood pressure 120/90. LUNGS: Bilateral fair airflow. No rhonchi or crackle. HEART: S1 and S2 audible. ABDOMEN: Soft, slight left lower quadrant discomfort. NEUROLOGIC: The patient is awake, alert, oriented and communicative. LABORATORY EXAM: WBC 6.8, hemoglobin 14, hematocrit 41, and platelets of 239. Chemistry: Sodium 141, potassium 3.3, chloride 105, CO2 of 30, BUN 6, creatinine 0.6 and blood sugar of 86. ASSESSMENT: 1. Left renal colic. 2. Left hydronephrosis. 3. Status post gastric stapling. 4. Gastroesophageal reflux disease. PLAN: The patient is going for cystoscopy and possible stent placement, after that she will be discharged home and she will follow with Dr. Cagle as outpatient. Holger Coreas MD
[2018-02-07] MEDS: Levothyroxine 150 MCG TAB PO SCH (06:26)
[2018-02-07 06:29] LABS: ALB/GLOB RATIO 1.2 (1.1-1.8); ALBUMIN 3.4 g/dL (3.0-4.8); ALT/SGPT 54 U/L (7-56); AST/SGOT 39 U/L (14-36); BLOOD UREA NITROGEN 8 mg/dL (7-21); CALCIUM 8.6 mg/dL (8.4-10.5); GFR NON-AFRICAN AMERICAN > 60
[2018-02-07 06:56] LABS: HEMOGLOBIN 13.5 g/dL (12.0-16.0); MEAN CELL VOLUME 88.3 fl (80.0-105.0); MEAN CORPUSCULAR HEMOGLOBIN 29.8 pg (25.0-35.0); MEAN CORPUSCULAR HGB CONC 33.8 g/dl (31.0-37.0); RBC 4.53 10^6/uL (3.5-6.1); RED CELL DISTRIBUTION WIDTH 13.4 % (11.5-14.5); WHITE BLOOD COUNT 5.8 10^3/uL (4.5-11.0)
[2018-02-07 06:57] LABS: BASO # 0.04 K/mm3 (0.0-2.0); BASO % 0.7 % (0.0-3.0); EOS # 0.3 (0.0-0.7); EOS % 5.2 % (1.5-5.0); GRAN # 3.22 (1.4-6.5); GRAN % 55.4 % (50.0-68.0); LYMPH # 1.8 (1.2-3.4); MEAN PLATELET VOLUME 10.1 fl (7.0-11.0); MONO # 0.5 (0.1-0.6); MONO % 7.7 % (1.0-6.0)
[2018-02-07 08:40] VITALS: BP 117/73; PULSE 51; RESP 18; TEMP 97.8; O2SAT 92
[2018-02-07] MEDS: VILANTEROL NEB SCH (09:34)
[2018-02-07] MEDS: FLUTICASONE NEB SCH (09:34)
[2018-02-07] MEDS: cefTRIAXone 1 gm 1 GM/100 ML BAG IVPB SCH (09:35)
[2018-02-07] MEDS ORDERED: Potassium Chloride 40 mEq/30 ml LIQ UD PO ONE (10:26)
[2018-02-07] MEDS ORDERED: HYDROmorphone 1 mg/ml ISec SC STA (10:33)
[2018-02-07] MEDS ORDERED: Potassium Chloride 40 mEq/30 ml LIQ UD PO SCH (13:00)
--- NOTE | 2018-02-09 08:08 | DS ---
HISTORY OF PRESENT ILLNESS: The patient is 52-year-old, seen and examined, sitting in chair, complaining of left flank pain, felt nauseous. No fever or chills. PHYSICAL EXAMINATION: VITAL SIGNS: She is afebrile, pulse , respirations 18, and blood pressure 117/73. LUNGS: Bilateral fair air flow. No rhonchi or crackles. HEART: S1 and S2 audible. ABDOMEN: Soft and nontender. No rebound, no guarding. NEUROLOGIC: She is awake, alert, and oriented, able to communicate, ambulatory. LABORATORY DATA: WBC 5.8, hemoglobin 13.5, hematocrit 40, and platelets of 231. Chemistries: Sodium 138, potassium 3, chloride 100, CO2 of 31, BUN 8, creatinine 0.7, and blood sugar of 87. ASSESSMENT: 1. Left renal colic. 2. Left hydronephrosis, status post cystoscopy and stent placement. 3. History of gastric sleeve. 4. History of asthma. 5. Gastritis. PLAN: The patient is clinically stable, cleared by Dr. Cgale, will be discharged home on Dilaudid 2 mg every 6 hours p.r.n., 15 pills has been ordered. She will follow up with Dr. Cagle as an outpatient. Holger Coreas MD
--- NOTE | 2018-02-10 18:48 | RAD ---
Date of service: 02/06/2018 PROCEDURE: Fluoroscopy up to 1 hr. HISTORY: RETROGRADE PYELOGRAM / STENT INSERTION COMPARISON: None TECHNIQUE: Standard protocol for this study/examination. FINDINGS: Total fluoroscopic time (continuous mode) utilized during the procedure 29.8 seconds. Dose report: DLP 0.13902 (mGy/m2) IMPRESSION: Less than 1 hr fluoroscopic assistance provided during performance of the procedure.
--- NOTE | 2018-02-12 21:14 | PQF ---
PROVIDER RESPONSE TEXT: Mild intermittent REVIEWER QUERY TEXT: Asthma Specificity and Type Asthma is documented in the Medical Record. Please specify the type and severity of asthma and indic ate if this is associated with exacerbation or status asthmaticus. Such as: -- Mild intermittent -- Mild persistent -- Moderate persistent -- Severe persistent -- Exercise induced bronchospasm -- Cough variant asthma -- Other, please specify The patient's Clinical Indicators include: You document history of asthma. Patient treated with albuterol on this admission. Please see below. Iftikhar lindsey. Query created by: Sinai Guzman on 02/09/2018 4:09 PM Electronically signed by: Holger Coreas MD 02/12/2018 9:11 PM
== END 2018-02-07 15:32 | disposition home or self-care (01) | DRG 694 ==
LOC: ED 21:09 → ERH 23:16 → 3RSO 02-05 01:02 → OBSVTOIN 02-05 15:40
PROVIDERS: ADMIT Internal Medicine; ATTEND Internal Medicine
DX: N13.2 Hydronephrosis with renal and ureteral calculous obstruction (principal); I12.9 Hypertensive chronic kidney disease with stage 1 through stage 4 chronic kidney disease, or unspecified chronic kidney disease; Z87.442 Personal history of urinary calculi; E03.9 Hypothyroidism, unspecified; M79.7 Fibromyalgia; J45.20 Mild intermittent asthma, uncomplicated; F41.9 Anxiety disorder, unspecified; K21.9 Gastro-esophageal reflux disease without esophagitis; D72.829 Elevated white blood cell count, unspecified; K29.70 Gastritis, unspecified, without bleeding; N18.9 Chronic kidney disease, unspecified; Z80.0 Family history of malignant neoplasm of digestive organs; Z87.01 Personal history of pneumonia (recurrent); Z87.440 Personal history of urinary (tract) infections; Z90.710 Acquired absence of both cervix and uterus; Z98.84 Bariatric surgery status

== ENCOUNTER 2018-02-10 12:53 | Inpatient (IN) | payer MEDICARE, OTHER ==
[2018-02-10 13:20] VITALS: BMI 30.4
[2018-02-10] MEDS ORDERED: Sodium Chloride 0.9% 1,000 ML IV STA (14:10)
--- NOTE | 2018-02-10 14:33 | ED PDOC ---
Arrival/HPI - General Chief Complaint: Abdominal Pain Time Seen by Provider: 02/10/18 13:22 Historian: Patient - History of Present Illness Narrative History of Present Illness (Text): 02/10/18 14:10 52 year old female, with past medical history of asthma and fibromyalgia, presents to the Emergency department for evaluation of right sided abdominal pain, vomiting and hematuria since today. Patient reports recent laser lithotri psy with stent placement to the left procedure done by Dr. Cagle with no complications. Patient informs experiencing mild right sided abdominal pain with radiation to her back the next day following the procedure which has been constant since onset, unimproved after prescribed percocet medication. Patient reports worsening symptoms this morning associated with hematuria and vomiting, prompting her to present to the Emergency department for medical evaluation. Patient denies any other associated somatic complaints. Patient denies any fevers, chills, headache, dizziness, chest pain, shortness of breath, dyspnea on exertion, cough, diarrhea, neck pain, or any other complaints. Urologist: Dr. Cagle Time/Duration: < week Symptom Onset: Gradual Symptom Course: Unchanged Quality: Aching Activities at Onset: Light Context: Home Past Medical History - Provider Review Nursing Documentation Reviewed: Yes - Infectious Disease Hx of Infectious Diseases: None - Tetanus Immunization Tetanus Immunization: Up to Date - Cardiac Hx Cardiac Disorders: Yes (cp) Hx Hypertension: Yes Other/Comment: AAA "went away" pt stated - Pulmonary Hx Respiratory Disorders: Yes (SMOKES MARIJUANA FOR HER FRIBROMYALGIA) Hx Asthma: Yes Hx Bronchitis: Yes Hx Pneumonia: Yes - Neurological Hx Neurological Disorder: Yes Other/Comment: Fibromyalgia - HEENT Hx HEENT Disorder: Yes (sinusitis) - Renal Hx Renal Disorder: Yes (renal colic) Hx Kidney Stones: Yes Other/Comment: cystos with laser lithotripsy and stent - Endocrine/Metabolic Hx Endocrine Disorders: Yes Hx Hypothyroidism: Yes - Hematological/Oncological Hx Blood Transfusions: No Hx Blood Transfusion Reaction: No - Integumentary Hx Dermatological Disorder: No - Musculoskeletal/Rheumatological Hx Falls: No - Gastrointestinal Hx Gastrointestinal Disorders: Yes (GASTRIC SLEEVE) Hx Gastroesophageal Reflux: Yes - Genitourinary/Gynecological Hx Genitourinary Disorders: Yes Hx Urinary Tract Infection: Yes - Psychiatric Hx Psychophysiologic Disorder: Yes Hx Anxiety: Yes Hx Emotional Abuse: No Hx Physical Abuse: No Hx Substance Use: No (SOCIALLY SMOKES MARIJUANA EVERY NOW AND THEN. LAST SMOKED 2 MOS AGO.) - Past Surgical History Past Surgical History: No Previous - Surgical History Hx Hysterectomy: Yes (partial due to fibroids) Other/Comment: RENAL STENTS, bariatric sx 09/26/17 lost 27 lbs, thyroid bx, cervical disc sx 2 disks removed from neck, epidural,b/l carpal tunnel, multiple cystos,GASTRIC SLEEVE. - Anesthesia Hx Anesthesia Reactions: No Hx Malignant Hyperthermia: No - Suicidal Assessment Feels Threatened In Home Enviroment: No Family/Social History - Physician Review Nursing Documentation Reviewed: Yes Family/Social History: Unknown Family HX Smoking Status: Never Smoked Hx Alcohol Use: Yes (OCCASIONALLY) Hx Substance Use: No (SOCIALLY SMOKES MARIJUANA EVERY NOW AND THEN. LAST SMOKED 2 MOS AGO.) Hx Substance Use Treatment: No Allergies/Home Meds Allergies/Adverse Reactions: Allergies No Known Allergies Allergy (Verified 02/10/18 13:25) Home Medications: Home Meds Medication Instructions Recorded Confirmed RX: Levothyroxine Sodium 175 mcg PO QAM 04/11/16 02/05/18 [Synthroid] RX: Albuterol HFA [Ventolin HFA 90 2 puff IH TID PRN 04/24/16 02/05/18 mcg/actuation (8 g)] RX: Carisoprodol [Soma] 350 mg PO DAILY 06/01/17 02/05/18 RX: Fluticasone/Vilanterol [Breo 1 cap NEB DAILY 06/01/17 02/05/18 Ellipta 100-25 Mcg INH] RX: Oxycodone HCl/Acetaminophen 1 tab PO BID PRN 06/01/17 02/05/18 [Percocet 10-325 mg Tablet] RX: clonazePAM [Klonopin] 1 mg PO DAILY PRN 06/01/17 02/05/18 RX: traZODone [Desyrel] 50 mg PO DAILY PRN 06/01/17 02/05/18 Review of Systems - Physician Review All systems were reviewed & negative as marked: Yes - Review of Systems Constitutional: absent: Fevers Respiratory: absent: SOB, Cough Cardiovascular: absent: Chest Pain Gastrointestinal: Abdominal Pain, Nausea, Vomiting Genitourinary Female: Hematuria Musculoskeletal: absent: Neck Pain Skin: absent: Rash Neurological: absent: Headache, Dizziness Physical Exam Vital Signs Reviewed: Yes Vital Signs Temp Pulse Resp BP Pulse Ox 02/10/18 13:18 98.1 F 81 16 117/80 94 L Temperature: Afebrile Blood Pressure: Normal Pulse: Regular Respiratory Rate: Normal Appearance: Positive for: Well-Appearing, Non-Toxic, Comfortable Pain Distress: None Mental Status: Positive for: Alert and Oriented X 3 - Systems Exam Head: Present: Atraumatic, Normocephalic Pupils: Present: PERRL Extroacular Muscles: Present: EOMI Conjunctiva: Present: Normal Mouth: Present: Moist Mucous Membranes Neck: Present: Normal Range of Motion Respiratory/Chest: Present: Clear to Auscultation, Good Air Exchange. No: Respiratory Distress, Accessory Muscle Use Cardiovascular: Present: Regular Rate and Rhythm, Normal S1, S2. No: Murmurs Abdomen: Present: Tenderness (Lower abdominal tenderness, right greater than left ). No: Distention, Peritoneal Signs Back: Present: CVA Tenderness (Right sided CVA tenderness) Upper Extremity: Present: Normal Inspection. No: Cyanosis, Edema Lower Extremity: Present: Normal Inspection. No: Edema Neurological: Present: GCS=15, CN II-XII Intact, Speech Normal Skin: Present: Warm, Dry, Normal Color. No: Rashes Psychiatric: Present: Alert, Oriented x 3, Normal Insight, Normal Concentration Medical Decision Making ED Course and Treatment: 02/10/18 14:10 Impression: 52 year old female presents to the Emergency department complaining of abdominal pain, hematuria, and vomiting. Plan: -- CT of Abdomen/Pelvis -- Labs -- IV Fluids -- Toradol -- Zofran -- Reassess and disposition Prior Visits: Notes and results from previous visits were reviewed. Progress Notes: 02/10/18 16:39 Upon reassessment, patient still informs pain. Patient will be given 2mg of morphine. 02/10/18 19:55 CT reviewed. Upon reassessment, patient expresses pain and nausea. Dr. Cagle paged. 02/10/18 20:[address] Coreas, whom the patient states is her PMD. 02/10/18 20:[address] Coreas who accepts admission plan for patient to [facility]. 02/10/18 20:[address] Cagle and discussed results, agrees with plan of admission under Dr. Coreas. Dr. Cagle states he will perform procedure in the morning. - RAD Interpretation Radiology Orders: 02/10/18 14:10 ABD & PELVIS W/O PO OR IV CONT [CT] Stat - Medication Orders Current Medication Orders: Sodium Chloride (Sodium Chloride 0.9%) 1,000 mls @ 1,000 mls/hr IV .Q1H STA Stop: 02/10/18 15:09 Discontinued Medications Ketorolac Tromethamine (Toradol) 30 mg IVP STAT STA Stop: 02/10/18 14:11 Ondansetron HCl (Zofran Inj) 4 mg IVP STAT STA Stop: 02/10/18 14:11 - Scribe Statement The provider has reviewed the documentation as recorded by the Scribe Alfredo Christensen. All medical record entries made by the Scribe were at my direction and personally dictated by me. I have reviewed the chart and agree that the record accurately reflects my personal performance of the history, physical exam, medical decision making, and the department course for this patient. I have also personally directed, reviewed, and agree with the discharge instructions and disposition. Disposition/Present on Arrival - Present on Arrival Any Indicators Present on Arrival: No History of DVT/PE: No History of Uncontrolled Diabetes: No Urinary Catheter: No History of Decub. Ulcer: No History Surgical Site Infection Following: None - Disposition Have Diagnosis and Disposition been Completed?: Yes Diagnosis: Renal colic on right side Disposition: HOSPITALIZED Disposition Time: 20:31 Patient Plan: Admission Condition: STABLE
[2018-02-10 15:34] LABS: BASO # 0.01 K/mm3 (0.0-2.0); BASO % 0.1 % (0.0-3.0); EOS # 0.2 (0.0-0.7); EOS % 3.1 % (1.5-5.0); GRAN # 4.95 (1.4-6.5); GRAN % 63.6 % (50.0-68.0); HEMOGLOBIN 14.6 g/dL (12.0-16.0); LYMPH # 2.1 (1.2-3.4); LYMPH % 26.3 % (22.0-35.0); MEAN CELL VOLUME 87.6 fl (80.0-105.0); MEAN CORPUSCULAR HEMOGLOBIN 29.6 pg (25.0-35.0); MEAN CORPUSCULAR HGB CONC 33.8 g/dl (31.0-37.0); MEAN PLATELET VOLUME 9.5 fl (7.0-11.0); MONO # 0.5 (0.1-0.6); MONO % 6.9 % (1.0-6.0); RBC 4.93 10^6/uL (3.5-6.1); RED CELL DISTRIBUTION WIDTH 13.4 % (11.5-14.5); WHITE BLOOD COUNT 7.8 10^3/uL (4.5-11.0)
[2018-02-10 15:43] LABS: INR 1.11; PARTIAL THROMBOPLASTIN TIME 32.1 Seconds (25.1-36.5); PROTHROMBIN TIME 12.7 SECONDS (9.4-12.5)
[2018-02-10 15:46] LABS: ALB/GLOB RATIO 1.4 (1.1-1.8); ALBUMIN 4.4 g/dL (3.0-4.8); ALT/SGPT 65 U/L (7-56); AST/SGOT 43 U/L (14-36); BLOOD UREA NITROGEN 19 mg/dL (7-21); CALCIUM 9.9 mg/dL (8.4-10.5); GFR NON-AFRICAN AMERICAN > 60; LIPASE 57 U/L (23-300)
[2018-02-10] MEDS ORDERED: Morphine 2 mg/ml ISec IVP STA ×2 (16:41→19:53)
--- NOTE | 2018-02-10 18:20 | CT ---
Date of service: 02/10/2018 PROCEDURE: CT Abdomen and Pelvis without intravenous contrast HISTORY: abd pain COMPARISON: 02/04/2018. CT abdomen and pelvis. TECHNIQUE: Unenhanced. Neither IV nor oral contrast administered Radiation dose: Total exam DLP = 807.60 mGy-cm. This CT exam was performed using one or more of the following dose reduction techniques: Automated exposure control, adjustment of the mA and/or kV according to patient size, and/or use of iterative reconstruction technique. FINDINGS: LOWER THORAX: Unremarkable. LIVER: Unremarkable. No gross lesion or ductal dilatation. GALLBLADDER AND BILE DUCTS: Unremarkable. PANCREAS: Unremarkable. No gross lesion or ductal dilatation. SPLEEN: Unremarkable. ADRENALS: Unremarkable. No mass. KIDNEYS AND URETERS: Right kidney in ureter: Position of the double J stent catheter(s): Satisfactory. However there is new right hydronephrosis and hydroureter. Bilateral upper tract calculi. Recently identified left ureteral calculus no longer seen either within the ureter or urinary bladder. Left hydroureter, hydronephrosis has resolved. VASCULATURE: Unremarkable. No aortic aneurysm. No atherosclerotic calcification or mural plaque present. BOWEL: Constipation without fecal impaction or obstruction. Stable postoperative changes in the stomach. APPENDIX: No abnormalities to suggest acute appendicitis. No right lower quadrant inflammatory processes identified. PERITONEUM: Unremarkable. No free fluid. No free air. LYMPH NODES: Unremarkable. No enlarged lymph nodes. BLADDER: Unremarkable. REPRODUCTIVE: Unremarkable. BONES: No acute fracture. OTHER FINDINGS: And extensive injection granulomas identified bilaterally. IMPRESSION: New right hydronephrosis, hydroureter despite the presence of recently placed double-J stent catheter. Resolution of left hydronephrosis, hydroureter following passage of a left distal ureteral calculus. Stable upper tract calculus disease.
[2018-02-10] MEDS ORDERED: Promethazine DM 6.25 mg-15 mg/5 ml Syrup PO STA (20:37)
[2018-02-10 21:49] LABS: PH,URINE 6.5 (4.7-8.0); URINE APPEARANCE BLOODY (CLEAR); URINE BILIRUBIN NEGATIVE (NEGATIVE); URINE BLOOD LARGE (NEGATIVE); URINE COLOR RED (YELLOW); URINE GLUCOSE (UA) 100 mg/dL (NEGATIVE); URINE LEUKOCYTE ESTERASE MODERATE Leu/uL (NEGATIVE); URINE PROTEIN >=300 mg/dL (<30 mg/dL)
[2018-02-10 21:57] LABS: URINE RBC TNTC /hpf (0-2)
[2018-02-10 21:58] LABS: URINE BACTERIA TRACE (NEG); URINE EPITHELIAL CELLS 0 - 2 /hpf (0-5)
[2018-02-10] MEDS ORDERED: Albuterol-Ipratrop 3 mg / 0.5 (3 ml) UD IH PRN (22:27)
[2018-02-10] MEDS: Dextrose 5%/0.45% NS 1,000 ML IV SCH (22:38)
[2018-02-10] MEDS: HYDROmorphone 1 mg/ml ISec IVP PRN (22:46)
[2018-02-11] MEDS: HYDROmorphone 1 mg/ml ISec IVP PRN ×4 (02:17→15:13)
--- NOTE | 2018-02-11 04:12 | HP ---
DATE OF EXAM: 02/10/2018 HISTORY OF PRESENT ILLNESS: The patient is a 52-year-old female, known to me from previous admission, was discharged yesterday morning after she had left UV junction nephrolithiasis. She had stent placed. She was observed overnight and discharged home on p.o. Percocet. The patient states she was well for 1 day and this morning she started to have right mid-abdominal pain that was radiating to her back and coming towards the horizontal pelvic area. So, she took Percocet significant relief. So, she decided to come to emergency room because of increasing abdominal pain. Complaining of feeling nauseous. Complains of having epigastric discomfort. PAST MEDICAL HISTORY: Significant for: 1. Gastric sleeve. 2. History of hypertension. 3. History of depression. 4. Chronic back pain. 5. History of asthma. 6. History of ascending aortic aneurysm. ALLERGIES: THE PATIENT IS NOT ALLERGIC TO ANY MEDICATION. MEDICATIONS AT HOME: She is on trazodone 50 mg at bedtime, Klonopin 1 mg daily, Norvasc 10 mg daily, nortriptyline 25 at bedtime, multivitamin as needed, levothyroxine 175 mcg daily, Percocet, naproxen, and hydromorphone. She is on Pepcid 40 at bedtime and she takes albuterol inhaler. SOCIAL HISTORY: She lives with her grandson. She has history of smoking in the past. Admits to smoking marijuana . PHYSICAL EXAMINATION: GENERAL: The patient is awake, alert, oriented, able to communicate. VITAL SIGNS: She is afebrile, pulse 59, respirations 16, blood pressure 117/80. LUNGS: Bilateral fair airflow. No rhonchi or crackle. HEART: S1 and S2 audible. ABDOMEN: Soft. Mid right lower abdominal discomfort. NEUROLOGICAL: She is awake, alert, oriented, communicative. LABORATORY EXAM: WBC 7.8, hemoglobin 14.6, hematocrit of 43.2, platelets 290. PT 12.7, INR 1.11. Chemistries: Sodium 141, potassium 3.1, chloride 99, CO2 of 34, BUN 19, creatinine 0.8, blood sugar of 110. AST ALT 65. Urine shows positive nitrate, moderate leukocyte, and rbc's too numerous to count. CT of the abdomen and pelvis done that shows new right hydronephrosis, hydroureter, resolution of left hydronephrosis and hydroureter following past history of left distal ureteral calculus. ASSESSMENT: 1. Right nephrolithiasis. 2. Renal colic. 3. Hypertension. 4. Asthma. 5. Status post gastric sleeve. 6. Degenerative disk disease with spinal stenosis. PLAN: We will keep the patient n.p.o. and give IV fluid, IV antibiotic, analgesic as needed. Dr. Cagle is consulted. Possible stent placement. Holger Croeas MD
[2018-02-11] MEDS ORDERED: Levothyroxine 175 MCG TAB PO SCH ×2 (07:14→10:00)
[2018-02-11] MEDS: Dextrose 5%/0.45% NS 1,000 ML IV SCH ×2 (09:34→17:45)
[2018-02-11] MEDS: cefTRIAXone 1 gm 1 GM/100 ML BAG IVPB SCH (09:34)
[2018-02-11] MEDS ORDERED: Propofol 10 mg/ml Inj (20 ML) ONE (12:01)
[2018-02-11] MEDS ORDERED: Midazolam 2 MG/2 ML VIAL ONE (12:02)
[2018-02-11] MEDS ORDERED: Iohexol 240 (50 ml) ONE (12:07)
[2018-02-11] MEDS ORDERED: HYDROmorphone 0.5 mg/0.5 ml ISec IVP PRN (13:05)
[2018-02-11] MEDS ORDERED: Lactated Ringer's 1,000 ML IV SCH (13:15)
[2018-02-11] MEDS ORDERED: Ciprofloxacin 400mg/200ml D5W 400 MG/200 ML BAG IVPB STA (13:15)
--- NOTE | 2018-02-11 13:37 | PN ---
DATE: 02/11/2018 SUBJECTIVE: The patient is 52-year-old, seen and examined, complained of pain in the right flank, underwent cystoscopy and stent placement. PHYSICAL EXAMINATION: GENERAL: She is awake, alert, oriented, communicative. VITAL SIGNS: She is afebrile, pulse 62, respirations 20, blood pressure 138/86. LUNGS: Bilateral fair airflow. No rhonchi or crackles. HEART: S1 and S2 audible. ABDOMEN: Soft, nontender. No rebound, no guarding except some soreness in the right mid to right lower quadrant. NEUROLOGIC: She is awake, alert, oriented, communicative. LABORATORY DATA: Potassium is 3.5. ASSESSMENT: 1. Right renal colic. 2. Status post stent placement. 3. Status post right ureteral . 4. Status post stent removal. 5. Peptic ulcer disease. 6. Status post gastric sleeve. 7. History of asthma. 8. Depression. PLAN: We will continue IV fluids, continue analgesics, continue nebulizer treatment. We will follow up CBC and CMP in a.m. Holger Coreas MD
[2018-02-11] MEDS ORDERED: Ciprofloxacin 400mg/200ml D5W IVPB ONE (13:58)
[2018-02-11] MEDS: HYDROmorphone 2 mg/ml ISec IVP PRN ×2 (18:42→22:39)
[2018-02-12] MEDS: Dextrose 5%/0.45% NS 1,000 ML IV SCH (05:07)
[2018-02-12] MEDS: HYDROmorphone 2 mg/ml ISec IVP PRN (05:08)
[2018-02-12 07:26] LABS: BASO # 0.02 K/mm3 (0.0-2.0); BASO % 0.3 % (0.0-3.0); EOS # 0.4 (0.0-0.7); EOS % 6.1 % (1.5-5.0); GRAN # 3.68 (1.4-6.5); GRAN % 51.1 % (50.0-68.0); HEMOGLOBIN 13.6 g/dL (12.0-16.0); LYMPH # 2.3 (1.2-3.4); LYMPH % 32.4 % (22.0-35.0); MEAN CORPUSCULAR HEMOGLOBIN 29.4 pg (25.0-35.0); MEAN CORPUSCULAR HGB CONC 33.7 g/dl (31.0-37.0); MEAN PLATELET VOLUME 9.2 fl (7.0-11.0); MONO # 0.7 (0.1-0.6); MONO % 10.1 % (1.0-6.0); RBC 4.63 10^6/uL (3.5-6.1); RED CELL DISTRIBUTION WIDTH 13.2 % (11.5-14.5); WHITE BLOOD COUNT 7.2 10^3/uL (4.5-11.0)
[2018-02-12 07:36] LABS: ALB/GLOB RATIO 1.2 (1.1-1.8); ALBUMIN 3.6 g/dL (3.0-4.8); ALT/SGPT 48 U/L (7-56); AST/SGOT 32 U/L (14-36); BLOOD UREA NITROGEN 7 mg/dL (7-21); CALCIUM 9.2 mg/dL (8.4-10.5); GFR NON-AFRICAN AMERICAN > 60
[2018-02-12] MEDS: HYDROmorphone 1 mg/ml ISec IVP PRN ×2 (09:06→13:19)
[2018-02-12] MEDS ORDERED: Potassium Chloride 20 mEq ER Tab PO ONE (11:19)
[2018-02-12] MEDS ORDERED: Magnesium Sulfate 1 gm in D5W 1 GM/100 ML BAG IVPB ONE (12:06)
[2018-02-12] MEDS: cefTRIAXone 1 gm 1 GM/100 ML BAG IVPB SCH (12:50)
[2018-02-12] MEDS ORDERED: Potassium Chloride 40 mEq/30 ml LIQ UD PO ONE (12:53)
[2018-02-12 14:02] VITALS: BP 113/74; PULSE 56; RESP 18; TEMP 98.4; O2SAT 97
--- NOTE | 2018-02-12 14:33 | CT ---
Date of service: 02/12/2018 PROCEDURE: CT Abdomen and Pelvis without intravenous contrast HISTORY: r lower quad pain COMPARISON: CT 02/10/2018 TECHNIQUE: Without contrast.. Contrast dose: Radiation dose: Total exam DLP = 801.0 mGy-cm. This CT exam was performed using one or more of the following dose reduction techniques: Automated exposure control, adjustment of the mA and/or kV according to patient size, and/or use of iterative reconstruction technique. FINDINGS: LOWER THORAX: Unremarkable. LIVER: Unremarkable. No gross lesion or ductal dilatation. GALLBLADDER AND BILE DUCTS: Unremarkable. PANCREAS: Unremarkable. No gross lesion or ductal dilatation. SPLEEN: Unremarkable. ADRENALS: Unremarkable. No mass. KIDNEYS AND URETERS: There has been removal of the right ureteral stent. There is persistent dilatation of the right renal collecting system and ureter. There is no visible stone. Small nonobstructing stones are seen in both kidneys VASCULATURE: Unremarkable. No aortic aneurysm. Aortic calcifications BOWEL: Unremarkable. No obstruction. No gross mural thickening. APPENDIX: Unremarkable. Normal appendix. PERITONEUM: Unremarkable. No free fluid. No free air. LYMPH NODES: Unremarkable. No enlarged lymph nodes. BLADDER: Unremarkable. REPRODUCTIVE: Unremarkable. BONES: No acute fracture. OTHER FINDINGS: None. IMPRESSION: There has been removal of the right ureteral stent. There is persistent dilatation of the right renal collecting system and ureter. There is no visible stone. Small nonobstructing stones are seen in both kidneys
--- NOTE | 2018-02-12 18:15 | DS ---
HISTORY OF PRESENT ILLNESS: The patient is a 52-year-old seen and examined. She states she has right flank pain. She was given Dilaudid 2-3 years ago. She wanted to see if she will be discharged later on today. I checked with the patient's nurse, she is doing well and is being discharged today . She is eating and tolerating and throw up this morning. PHYSICAL EXAMINATION: VITAL SIGNS: She is afebrile, pulse 56, respirations 18, and blood pressure 113/74. LUNGS: Bilateral fair air flow. No rhonchi or crackles. HEART: S1 and S2 audible. ABDOMEN: Soft and nontender. No rebound, no guarding. NEUROLOGIC: The patient is awake, alert, oriented, communicative. LABORATORY DATA: WBC 7.2, hemoglobin 13.6, hematocrit 40.3, and platelets of 306. Chemistry; sodium 138, potassium 3.2, chloride 102, CO2 of 39, BUN 7, creatinine 0.7, and blood sugar of 116. ASSESSMENT: 1. Right renal colic status right hydronephrosis, status post right ureteral stent removal. 2. Status post gastric sleeve. 3. Asthma. PLAN: This patient was going to be evaluated by Dr. Cagle. She is being sent home on Cipro 500 twice a day. She was given hydromorphone 2 mg every 4 hours p.r.n. She will resume her usual medications. Magnesium has been supplemented so is potassium. She is given a dose of Relistor since she has been complaining of constipation. She was advised to take at home. She will contact Dr. Cagle for followup. Holger Coreas MD
--- NOTE | 2018-02-20 15:50 | OP ---
PROCEDURE DATE: 02/11/2018 PREOPERATIVE DIAGNOSES: Urolithiasis, severe renal colic, severe stent pain. POSTOPERATIVE DIAGNOSES: Urolithiasis, severe renal colic, severe stent pain. PROCEDURES: Cystoscopy, removal of right double-J stent. COMPLICATIONS: There were no complications. ESTIMATED BLOOD LOSS: Less than 10 mL. SURGEON: Laron Cagle MD FINDINGS: No specific abnormality, stent in good location, removed without difficulty. INDICATIONS: See history and physical. This is a very pleasant lady, who was 52 years old, who recently did ureteroscopy. She has bilateral stone disease. We are now treating when she presented with left renal colic, but then by the time we did the procedure, she had right renal colic, and she had tremendous amount of hydronephrosis. Despite ureteroscopy, I did not find a stone. We left a double-J stent, but no dangles because of this story. Now we had to remove it. The patient . Socially, the patient is not looking for narcotics, but she takes a tremendous amount while she is here, but she tells it makes her feel sick, and she prevent the stones, but she keeps taking tremendous amount of narcotics. DESCRIPTION OF PROCEDURE: After obtaining informed consent, the patient was placed in table. Routine monitors were placed. A time-out was called to confirm the patient and positioning. We introduced cystoscope via the urethra. We identified the old double-J stent, and we removed it without difficulty. It looks to be in good location. No significant abnormality is detected, even the ureteral orifice did not seem to be overly edematous. They are all within normal limits. Stents were removed. The patient tolerated the procedure well without complications. Again, if the patient has bilateral stone disease, I will have to discuss this for the future. See also the various consult notes, labs, etc. Laron Cagle MD
--- NOTE | 2018-02-23 09:40 | PN ---
PROCEDURE DATE: 02/11/2018 Preoperative diagnoses urolithiasis, bilateral stone disease, hematuria, hydronephrosis. Postoperative diagnoses was the same. Procedure was a cystoscopy. . There were no complications. Estimated blood loss was normal. The patient taken to recovery room in stable condition. This is an immediate postop note. See the chart for further details. Laron Cagle MD
--- NOTE | 2018-02-23 09:42 | HP ---
DATE OF EXAM: 02/10/2018 UROLOGY EMERGENCY ADMISSION AND CONSULT NOTE REASON FOR ADMISSION: History of severe renal colic. HISTORY OF PRESENT ILLNESS: Very pleasant lady, 52-year-old, who is previously known from last time where she was admitted with severe left renal colic. Then by the time we did the procedure, she had bilateral stones, she had right renal colic. We did a right ureteroscopy, right double-J stent insertion and now she is here to have that stent removed. At that time, again she presented with left renal colic, but then she also has bilateral stones and ureteroscope, I did not find the stone, so I left it stented because of her complaints and there was right hydronephrosis to our surprise. When I the stones, I looked it over to now she is here for the removal. PAST MEDICAL AND SURGICAL HISTORY: See the chart. Patient really reports that she is not interested in drugs and taking drugs. They make her sick and feels lousy, and she wants to do anything she can to prevent the stone on the one hand. On the other hand, she keeps requesting more and more narcotic. She does not seem to be on narcotic when she is not here, but when she is in the hospital, she needs a tremendous dose . We will bring her in the hospital because of pain and she is going to go to the OR for stent removal. REVIEW OF SYSTEMS: As listed above, otherwise noncontributory. MEDICATIONS: See chart. ALLERGIES: SEE CHART. SOCIAL HISTORY: Patient really reports that she is not interested in narcotic at all. She wants to do anything she can to take it, but it hurts so much so badly. as an emergency, we got bring her to the OR. PHYSICAL EXAMINATION: GENERAL: A well-nourished female, in no apparent distress, currently resting comfortably. VITAL SIGNS: Noted. LUNGS: Clear. HEART: S1, S2. ABDOMEN: Soft, nontender, no flank masses appreciated. PELVIC: Refer to , no pelvic or rectal masses. DIAGNOSES: Severely no colic, severe stenting. Bilateral stone disease. PLAN: The plan is as follows. We are going to bring the patient to the OR to remove the right double-J stent. We discussed oxygen being at home, etc . We discussed various options, she is now for analgesic and pain management and follow. Laron Cagle MD
== END 2018-02-12 16:56 | disposition home or self-care (01) | DRG 694 ==
LOC: ED 12:53 → ERH 20:30 → 5RSO 23:52
PROVIDERS: ADMIT Internal Medicine; ATTEND Internal Medicine
PROC: 0TPD7DZ Removal of Intraluminal Device from Urethra, Via Natural or Artificial Opening (ICD-10-PCS; principal; 2018-02-11 10:00)
DX: N13.2 Hydronephrosis with renal and ureteral calculous obstruction (principal); M79.7 Fibromyalgia; J45.909 Unspecified asthma, uncomplicated; F12.90 Cannabis use, unspecified, uncomplicated; I10 Essential (primary) hypertension; Z87.440 Personal history of urinary (tract) infections; Z87.442 Personal history of urinary calculi; Z87.891 Personal history of nicotine dependence; Z98.84 Bariatric surgery status; E03.9 Hypothyroidism, unspecified; F32.89 Other specified depressive episodes; K21.9 Gastro-esophageal reflux disease without esophagitis; K27.9 Peptic ulcer, site unspecified, unspecified as acute or chronic, without hemorrhage or perforation; M48.00 Spinal stenosis, site unspecified; Z79.890 Hormone replacement therapy; Z87.01 Personal history of pneumonia (recurrent); Z90.710 Acquired absence of both cervix and uterus

== ENCOUNTER 2018-03-29 04:04 | Emergency (ER) | payer MEDICARE, OTHER ==
[2018-03-29 04:10] VITALS: BMI 26.5
--- NOTE | 2018-03-29 04:21 | ED PDOC ---
Arrival/HPI - General Time Seen by Provider: 03/29/18 04:17 Historian: Patient - History of Present Illness Narrative History of Present Illness (Text): 03/29/18 04:18 A 52 year old female presents to the emergency department with a complaint of abdominal cramping, vomiting, and diarrhea. The patient reports onset of her symptoms at around 11 PM last night. The patient reports several episodes of vomiting and diarrhea. She denies fevers, chills, headache, dizziness, chest pain, shortness of breath, dyspnea on exertion, cough, back pain, neck pain, urinary/bowel changes, or any other complaint. Time/Duration: 4-6 hours Symptom Onset: Sudden Symptom Course: Unchanged Activities at Onset: Rest, Light Context: Home Past Medical History - Provider Review Nursing Documentation Reviewed: Yes - Infectious Disease Hx of Infectious Diseases: None - Tetanus Immunization Tetanus Immunization: Up to Date - Cardiac Hx Cardiac Disorders: Yes (cp) - Pulmonary Hx Respiratory Disorders: Yes (SMOKES MARIJUANA FOR HER FRIBROMYALGIA) Hx Bronchitis: Yes Hx Pneumonia: Yes - Neurological Hx Neurological Disorder: Yes - HEENT Hx HEENT Disorder: Yes (sinusitis) - Renal Hx Renal Disorder: Yes (renal colic) - Endocrine/Metabolic Hx Endocrine Disorders: Yes - Hematological/Oncological Hx Blood Transfusions: No Hx Blood Transfusion Reaction: No - Integumentary Hx Dermatological Disorder: No - Musculoskeletal/Rheumatological Hx Falls: No - Gastrointestinal Hx Gastrointestinal Disorders: Yes (GASTRIC SLEEVE) Hx Gastroesophageal Reflux: Yes - Genitourinary/Gynecological Hx Genitourinary Disorders: Yes Hx Urinary Tract Infection: Yes - Psychiatric Hx Psychophysiologic Disorder: Yes Hx Substance Use: No (SOCIALLY SMOKES MARIJUANA EVERY NOW AND THEN. LAST SMOKED 2 MOS AGO.) - Past Surgical History Past Surgical History: No Previous - Surgical History Hx Hysterectomy: Yes (partial due to fibroids) - Anesthesia Hx Anesthesia Reactions: No Hx Malignant Hyperthermia: No - Suicidal Assessment Feels Threatened In Home Enviroment: No Family/Social History - Physician Review Nursing Documentation Reviewed: Yes Family/Social History: No Known Family HX Smoking Status: Never Smoked Hx Alcohol Use: Yes (OCCASIONALLY) Hx Substance Use: No (SOCIALLY SMOKES MARIJUANA EVERY NOW AND THEN. LAST SMOKED 2 MOS AGO.) Hx Substance Use Treatment: No Allergies/Home Meds Allergies/Adverse Reactions: Allergies No Known Allergies Allergy (Verified 03/29/18 04:14) Home Medications: Home Meds Medication Instructions Recorded Confirmed Levothyroxine Sodium [Synthroid] 175 mcg PO QAM 04/11/16 03/29/18 Albuterol HFA [Ventolin HFA 90 2 puff IH TID PRN 04/24/16 03/29/18 mcg/actuation (8 g)] Carisoprodol [Soma] 350 mg PO DAILY 06/01/17 03/29/18 Fluticasone/Vilanterol [Breo 1 cap NEB DAILY 06/01/17 03/29/18 Ellipta 100-25 Mcg INH] Oxycodone HCl/Acetaminophen 1 tab PO BID PRN 06/01/17 03/29/18 [Percocet 10-325 mg Tablet] clonazePAM [Klonopin] 1 mg PO DAILY PRN 06/01/17 03/29/18 traZODone [Desyrel] 50 mg PO DAILY PRN 06/01/17 03/29/18 Review of Systems - Physician Review All systems were reviewed & negative as marked: Yes - Review of Systems Constitutional: absent: Fevers Respiratory: absent: SOB, Cough Cardiovascular: absent: Chest Pain, DIMAS Gastrointestinal: Abdominal Pain, Nausea, Vomiting. absent: Stool Changes Genitourinary Female: absent: Urine Output Changes Musculoskeletal: absent: Back Pain, Neck Pain Neurological: absent: Headache, Dizziness Physical Exam Appearance: Positive for: Well-Appearing, Non-Toxic, Comfortable Pain Distress: None Mental Status: Positive for: Alert and Oriented X 3 - Systems Exam Head: Present: Atraumatic, Normocephalic Pupils: Present: PERRL Extroacular Muscles: Present: EOMI Conjunctiva: Present: Normal Mouth: Present: Moist Mucous Membranes Neck: Present: Normal Range of Motion Respiratory/Chest: Present: Clear to Auscultation, Good Air Exchange. No: Respiratory Distress, Accessory Muscle Use Cardiovascular: Present: Regular Rate and Rhythm, Normal S1, S2. No: Murmurs Abdomen: No: Tenderness, Distention, Peritoneal Signs Back: Present: Normal Inspection Upper Extremity: Present: Normal Inspection. No: Cyanosis, Edema Lower Extremity: Present: Normal Inspection. No: Edema Neurological: Present: GCS=15, CN II-XII Intact, Speech Normal Skin: Present: Warm, Dry, Normal Color. No: Rashes Psychiatric: Present: Alert, Oriented x 3, Normal Insight, Normal Concentration Medical Decision Making ED Course and Treatment: 03/29/18 04:19 Impression: A 52 year old female presents to the emergency department with a complaint of abdominal cramping, vomiting and diarrhea. Plan: -- EKG -- Urinalysis -- Labs -- Protonix, Toradol, Zofran, and IV Fluids -- Reassess and disposition Prior Visits: Notes and results from previous visits were reviewed. Progress Notes: - Lab Interpretations I have reviewed the lab results: Yes - EKG Interpretation Interpreted by ED Physician: Yes Type: 12 lead EKG - Transfer of Care Patient signed out to Dr:: ashleigh ct and dispo - Scribe Statement The provider has reviewed the documentation as recorded by the Scribe Adriana Camp Provider Scribe Attestation: All medical record entries made by the Scribe were at my direction and perso nate dictated by me. I have reviewed the chart and agree that the record accurately reflects my personal performance of the history, physical exam, medical decision making, and the department course for this patient. I have also personally directed, reviewed, and agree with the discharge instructions and disposition. Disposition/Present on Arrival - Present on Arrival Any Indicators Present on Arrival: No History of DVT/PE: No History of Uncontrolled Diabetes: No Urinary Catheter: No History Surgical Site Infection Following: None - Disposition Have Diagnosis and Disposition been Completed?: Yes Diagnosis: Vomiting, Diarrhea, Abdominal pain Disposition: HOME/ ROUTINE Disposition Time: 07:00 Condition: STABLE Discharge Instructions (ExitCare): Viral Gastroenteritis, Adult (DC) Prescriptions: Ondansetron ODT [Zofran ODT] 4 mg PO Q8 #12 odt Referrals: Shruthi Ashby MD [Primary Care Provider] - Follow up with primary Forms: [employer] (Bhutanese)
[2018-03-29 04:25] VITALS: TEMP 98
[2018-03-29] MEDS ORDERED: Sodium Chloride 0.9% 1,000 ML IV SCH (04:30)
[2018-03-29 05:11] LABS: BASO # 0.01 K/mm3 (0.0-2.0); BASO % 0.1 % (0.0-3.0); EOS # 0.2 (0.0-0.7); EOS % 1.4 % (1.5-5.0); GRAN # 11.52 (1.4-6.5); GRAN % 82.3 % (50.0-68.0); LYMPH # 1.7 (1.2-3.4); LYMPH % 12.1 % (22.0-35.0); MEAN CELL VOLUME 89.9 fl (80.0-105.0); MEAN CORPUSCULAR HEMOGLOBIN 30.4 pg (25.0-35.0); MEAN CORPUSCULAR HGB CONC 33.8 g/dl (31.0-37.0); MEAN PLATELET VOLUME 9.7 fl (7.0-11.0); MONO # 0.6 (0.1-0.6); MONO % 4.1 % (1.0-6.0); RBC 5.23 10^6/uL (3.5-6.1); RED CELL DISTRIBUTION WIDTH 12.8 % (11.5-14.5)
[2018-03-29 05:17] LABS: HEMOGLOBIN 15.9 g/dL (12.0-16.0)
[2018-03-29 05:34] LABS: ALB/GLOB RATIO 1.5 (1.1-1.8); ALBUMIN 4.4 g/dL (3.0-4.8); ALT/SGPT 42 U/L (7-56); AMYLASE 78 U/L (35-125); AST/SGOT 42 U/L (14-36); BLOOD UREA NITROGEN 14 mg/dL (7-21); CALCIUM 9.5 mg/dL (8.4-10.5); GFR NON-AFRICAN AMERICAN > 60; LIPASE 130 U/L (23-300)
[2018-03-29] MEDS ORDERED: Iohexol 350 MG/100 ML VIAL ONE (05:56)
[2018-03-29 06:01] LABS: TROPONIN I < 0.01 ng/mL
--- NOTE | 2018-03-29 07:39 | ED PDOC ---
Physical Exam Vital Signs Temp Pulse Resp BP Pulse Ox 03/29/18 06:46 57 L 18 132/78 96 03/29/18 04:22 98 F 67 16 132/79 98 Medical Decision Making ED Course and Treatment: 03/29/18 07:00 Case endorsed to me by Dr. Chris. 52 y/o F p/w retching and 1 episode loose stool since 11pm last night, abdominal pain, LLQ tenderness. Awaiting CT results, reassessment, and disposition. 03/29/2018 07:39 Abd/Pelvis CT IMPRESSION: No acute intra-abdominal abnormality. Dictator: Marry Johns MD On reassessment, states nausea much improved and abdominal pain improved as well. Will discharge, f/u PMD, return to ED for worsening pain, fever, vomiting, dyspnea, or any other problem. - Lab Interpretations Lab Results: Troponin I < 0.01 ng/mL 03/29/18 04:45 Total Bilirubin 0.5 mg/dL (0.2-1.3) 03/29/18 04:45 AST 42 U/L (14-36) H D 03/29/18 04:45 ALT 42 U/L (7-56) 03/29/18 04:45 Alkaline Phosphatase 98 U/L (38-126) 03/29/18 04:45 Total Protein 7.4 g/dL (5.8-8.3) 03/29/18 04:45 Albumin 4.4 g/dL (3.0-4.8) 03/29/18 04:45 Globulin 3.0 gm/dL 03/29/18 04:45 Albumin/Globulin Ratio 1.5 (1.1-1.8) 03/29/18 04:45 Amylase 78 U/L (35-125) 03/29/18 04:45 Lipase 130 U/L (23-300) 03/29/18 04:45 - RAD Interpretation Radiology Orders: 03/29/18 05:19 ABD & PELVIS IV CONTRAST ONLY [CT] Stat - Medication Orders Current Medication Orders: Sodium Chloride (Sodium Chloride 0.9%) 1,000 mls @ 80 mls/hr IV .[id number] ASH Last Admin: 03/29/18 04:35 Dose: 80 mls/hr eMAR Start Stop Document 03/29/18 04:35 RD (Rec: 03/29/18 04:49 RD [id number]) Intravenous Solution Start Date 03/29/18 Start Time 04:35 Discontinued Medications Ketorolac Tromethamine (Toradol) 30 mg IVP ONCE ONE Stop: 03/29/18 04:19 Last Admin: 03/29/18 04:42 Dose: 30 mg MAR Pain Assessment Document 03/29/18 04:42 RD (Rec: 03/29/18 04:50 RD [id number]) Pain Reassessment Is this a pain reassessment? No Sleep Is patient sleeping during reassessment? No Presence of Pain Presence of Pain Yes Location Pain Location Body Site Abdomen Description Description Cramping Pain Behavior Moaning Irritability Alleviating Factors/Management Medication Techniques Alleviating Factors Medication IVP Administration Document 03/29/18 04:42 RD (Rec: 03/29/18 04:50 RD [id number]) Charges for Administration # of IVP Administrations 1 Re-Assess: GANESH Pain Assessment Document 03/29/18 05:42 RD (Rec: 03/29/18 06:46 RD [id number]) Pain Reassessment Is this a pain reassessment? Yes Sleep Is patient sleeping during reassessment? Yes Ondansetron HCl (Zofran Inj) 4 mg IVP STAT STA Stop: 03/29/18 04:19 Last Admin: 03/29/18 04:40 Dose: 4 mg IVP Administration Document 03/29/18 04:40 RD (Rec: 03/29/18 04:49 RD [id number]) Charges for Administration # of IVP Administrations 1 Pantoprazole Sodium (Protonix Inj) 40 mg IVP ONCE STA Stop: 03/29/18 04:19 Last Admin: 03/29/18 04:44 Dose: 40 mg IVP Administration Document 03/29/18 04:44 RD (Rec: 03/29/18 04:50 RD [id number]) Charges for Administration # of IVP Administrations 1 - Scribe Statement The provider has reviewed the documentation as recorded by the Rinku Marte Provider Scribe Attestation: All medical record entries made by the Scribe were at my direction and personally dictated by me. I have reviewed the chart and agree that the record accurately reflects my personal performance of the history, physical exam, medical decision making, and the department course for this patient. I have also personally directed, reviewed, and agree with the discharge instructions and disposition. Disposition/Present on Arrival - Present on Arrival Any Indicators Present on Arrival: No History of DVT/PE: No History of Uncontrolled Diabetes: No Urinary Catheter: No History of Decub. Ulcer: No History Surgical Site Infection Following: None - Disposition Have Diagnosis and Disposition been Completed?: Yes Diagnosis: Vomiting, Diarrhea, Abdominal pain Disposition: HOME/ ROUTINE Disposition Time: 08:07 Patient Plan: Discharge Condition: STABLE Discharge Instructions (ExitCare): Viral Gastroenteritis, Adult (DC) Prescriptions: Ondansetron ODT [Zofran ODT] 4 mg PO Q8 #12 odt Referrals: Shruthi Ashby MD [Primary Care Provider] - Follow up with primary Forms: [employer] (Faroese)
[2018-03-29 08:13] VITALS: BP 125/83; PULSE 85; RESP 20; O2SAT 99
--- NOTE | 2018-03-29 12:04 | CT ---
Date of service: 03/29/2018 PROCEDURE: CT Abdomen and Pelvis with contrast HISTORY: abd pain COMPARISON: 02/12/2018 TECHNIQUE: Contrast dose: 100 mL Omnipaque 350 Radiation dose: Total exam DLP = 645.12 mGy-cm. This CT exam was performed using one or more of the following dose reduction techniques: Automated exposure control, adjustment of the mA and/or kV according to patient size, and/or use of iterative reconstruction technique. FINDINGS: LOWER THORAX: Unremarkable. LIVER: Mild hepatomegaly. The liver measures approximately 19.7 cm craniocaudal. Smooth contour. No mass. No biliary ductal dilatation. GALLBLADDER AND BILE DUCTS: Unremarkable. PANCREAS: Unremarkable. No gross lesion or ductal dilatation. SPLEEN: Unremarkable. ADRENALS: Unremarkable. No mass. KIDNEYS AND URETERS: Multiple small nonobstructing bilateral renal calculi. No renal mass. No hydronephrosis. VASCULATURE: Unremarkable. No aortic aneurysm. There is atherosclerotic calcification of the abdominal aorta. 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 There is no bowel obstruction. APPENDIX: Not identified. No secondary findings to suggest acute appendicitis. PERITONEUM: Trace fluid in cul-de-sac. No generalized ascites. No pneumoperitoneum. LYMPH NODES: Unremarkable. No enlarged lymph nodes. BLADDER: Unremarkable. REPRODUCTIVE: Hysterectomy. BONES: No acute fracture. OTHER FINDINGS: Foreign material seen within the subcutaneous fat in the gluteal region bilaterally, possible cosmetic surgical procedure. No change from prior examination. Correlate with history. IMPRESSION: No acute abnormality. Mild hepatomegaly prior sleeve gastrectomy. Multiple small nonobstructing bilateral renal calculi. Trace fluid in cul-de-sac. Hysterectomy. Foreign material in the subcutaneous gluteal fat bilaterally. See above. The preliminary findings for this examination were reported by [facility] at 6:27 a.m. on 03/29/2018. There is concurrence of this report with the preliminary findings.
--- NOTE | 2018-03-30 07:47 | CARD ---
APPROVED REPORT Date of service: 03/29/2018 EKG Measurement Heart [id number] <Conclusion> Normal sinus rhythm Nonspecific ST-T abnormalities [facility] ECG
== END 2018-03-29 08:13 | disposition home or self-care (01) ==
LOC: ED 04:04
DX: R19.7 Diarrhea, unspecified (principal); R10.9 Unspecified abdominal pain; R11.10 Vomiting, unspecified
CPT/HCPCS: 74177; 80053; 82150; 82550; 83615; 83690; 84484; 85025; 93005; 96374; 96375; 99284; C9113; J1885; J2405; J7030; Q9967